=== PATIENT | female | born 1950 | race Caucasian/White ===

== ENCOUNTER 2016-11-27 19:42 | Inpatient (IN) | payer BC, OTHER ==
--- NOTE | 2016-11-27 20:08 | DR.GENAD ---
HPI - PCP Primary Care Physician: [email or web address] - Complaint/Symptoms Chief Complaint:: pt states" i feel so weak i can't hardly stand up" pt has a wound vac too sacrum area - Nurses notes reviewed Nurses Notes Review: Yes - Source History Provided: Patient - Mode of Arrival Mode of Arrival: EMS - Timing Onset of Chief Complaint: 11/26/16 Came on: Gradually - Duration Duration: Constant How lon Duration: Days - Location Location: generalized - Severity Severity: Moderate - Modifying Factors Worsens:: nothing - Associated Signs and Symptoms Associated Signs and Symptoms: wound vac PMH - PMH Past Medical History: Yes Past Medical History: Arthritis, Coronary Artery Disease, Dyslipidemia, Hypertension Past Surgical History: Yes Surgical History: Angioplasty/Stents, Appendectomy, , Hysterectomy, Other - Family History History of Family Medical Conditions: Yes Family Medical History: ID, Coronary Artery Disease, Hypertension - Social History Alcohol Use: None Do you use any recreational Drugs:: No Lives With: Family Lives Where: Home - infectious screening In the last 2 months have you had wt loss of >10#?: NO Have you had fever, night sweats or hemotysis?: No Have you traveled outside the country in the last 6 months?: No Isolation: Standard ROS - Review of Systems Constitutional: No Symptoms Reported Eyes: No Symptoms Reported ENTM: No Symptoms Reported Respiratoy: No Symptoms Reported Cardiovascular: No Symptoms Reported Gastrointestinal/Abdominal: No Symptoms Reported Genitourinary: No Symptoms Reported Neurological: No Symptoms Reported Musculoskeletal: Other (weakness) Integumentary: Other (sacral decubitius) Hematologic/Lymphatic: No Symptoms Reported Endocrine: No Symptoms Reported Psychiatric: Depression All Other Systems: Reviewed and Negative PE - Vital Signs Vitals: Temperature 99 F Pulse Rate 125 Respiratory Rate 20 Blood Pressure [Right Arm] 142/65 Blood Pressure [Left Arm] 135/75 Blood Pressure 116/71 O2 Sat by Pulse Oximetry 100 - General Limitations: No Limitations General Appearance: Alert, In No Apparent Distress - Head Head Exam: Normal Inspection - Eyes Eye exam: Normal Appearance, EOMI. negative: Scleral Icterus, Conjunctival Injection - ENT ENT Exam: Normal Exam External Ear Exam: Normal External Inspection - Neck Neck Exam: Normal Inspection, Full ROM, Trachea Midline - Chest Chest Inspection: Normal Inspection - Respiratory Respiratory Exam: Normal Lung Sounds Bilat. negative: Accessory Muscle Use, Respiratory Distress Respiratory Exam: Bilateral Clear to Auscultation - Cardiovascular Cardiovascular Exam: Tachycardia - Abdominal Exam Abdominal Exam: Normal Inspection, Normal Bowel Sounds, Soft. negative: Distention - Extremities Extremities Exam: Normal Inspection, Full ROM, Tenderness - Back Back Exam: Normal Inspection - Neurologic Neurological Exam: Alert, Oriented X3, CN II-XII Intact - Psychiatric Psychiatric Exam: Flat Affect - Skin Skin Exam: negative: Intact, Normal Color (sacral decubitus) Course - Consultation Called: 21:54 Call Returned: 21:54 Consultation Comments: case discussed with DR. Zaragoza admit for fluids and antibiotics ROR - Labs Reviewed Result Diagrams: 11/27/16 20:05 11/27/16 20:05 Laboratory: WBC 14.5 X10^3/uL (3.6-10.0) H 11/27/16 20:05 RBC 4.14 X10^6/uL (3.5-5.4) 11/27/16 20:05 Hgb 10.1 g/dL (12.0-16.0) L 11/27/16 20:05 Hct 32.1 % (36.0-47.0) L 11/27/16 20:05 MCV 77.5 fL (80.0-100.0) L 11/27/16 20:05 MCH 24.4 pg (27.0-34.0) L 11/27/16 20:05 MCHC 31.4 g/dL (33.0-35.0) L 11/27/16 20:05 RDW 17.6 % (11.6-16.5) H 11/27/16 20:05 Plt Count 414 X10^3/uL (150.0-450.0) 11/27/16 20:05 Plt Count Comment Adequate (ADEQUATE) 11/27/16 20:05 MPV 6.9 fL (7.4-11.0) L 11/27/16 20:05 Neut % 89.2 % (42.0-75.0) H 11/27/16 20:05 Lymph % 6.4 % (21.0-51.0) L 11/27/16 20:05 [place] % 3.7 % (0.0-13.0) 11/27/16 20:05 Eos % 0.2 % (0.9-2.9) L 11/27/16 20:05 Baso % 0.5 % (0.2-1.0) 11/27/16 20:05 Neut # 12.9 x10^3/uL (2.2-4.8) H 11/27/16 20:05 Lymph # 0.9 X10^3/uL (1.3-2.9) L 11/27/16 20:05 [place] # 0.5 x10^3/uL (0.3-0.8) 11/27/16 20:05 Eos # 0.0 x10^3/uL (0.0-0.2) 11/27/16 20:05 Baso # 0.1 X10^3/uL (0.0-0.1) 11/27/16 20:05 Absolute Nucleated RBC 0.0 /100WBC 11/27/16 20:05 Plt Morphology Comment Normal (NORMAL) 11/27/16 20:05 RBC Morphology Abnormal (NORMAL) A 11/27/16 20:05 Hypochromasia Slight A 11/27/16 20:05 Anisocytosis Slight A 11/27/16 20:05 Microcytosis Slight A 11/27/16 20:05 Sodium 134 mmol/L (136-145) L 11/27/16 20:05 Corrected Sodium TNP 11/27/16 20:05 Potassium 4.1 mmol/L (3.5-5.1) 11/27/16 20:05 Chloride 101 mmol/L (98-107) 11/27/16 20:05 Carbon Dioxide 26.7 mmol/L (21-32) 11/27/16 20:05 BUN 21 mg/dL (7-18) H 11/27/16 20:05 Creatinine 1.01 mg/dL (0.55-1.02) 11/27/16 20:05 Est GFR (MDRD) Af Amer > 60 (>60) 11/27/16 20:05 Est GFR (MDRD) Non-Af 58 (>60) L 11/27/16 20:05 Glucose 77 mg/dL (65-99) 11/27/16 20:05 Lactic Acid 2.5 mmol/L (0.4-2.0) H 11/27/16 20:47 Calcium 10.5 mg/dL (8.5-10.1) H 11/27/16 20:05 Corrected Calcium 12.6 mg/dL (8.5-10.1) H 11/27/16 20:05 Total Bilirubin 0.40 mg/dL (0.2-1.0) 11/27/16 20:05 AST 32 Units/L (15-37) 11/27/16 20:05 ALT 20 Units/L (12-78) 11/27/16 20:05 Alkaline Phosphatase 110 Units/L (46-116) 11/27/16 20:05 Lactate Dehydrogenase 184 Units/L (81-234) 11/27/16 20:05 Creatine Kinase 62 Units/L (26-192) 11/27/16 20:40 CK-MB (CK-2) 2.0 ng/mL (0-4.0) 11/27/16 20:40 CK/CKMB % Calc 3.2 % (<4) 11/27/16 20:40 Troponin I 0.07 ng/mL (0-1.5) 11/27/16 20:40 Total Protein 5.7 g/dL (6.4-8.2) L 11/27/16 20:05 Albumin 1.4 g/dL (3.4-5.0) L 11/27/16 20:05 Globulin 4.3 g/dL (2.5-4.5) 11/27/16 20:05 Albumin/Globulin Ratio 0.3 Ratio (1.1-2.1) L 11/27/16 20:05 Specimen Type Catherized urine 11/27/16 21:00 Urine Color Dark yellow (YELLOW) 11/27/16 21:00 Urine Appearance Cloudy (CLEAR) 11/27/16 21:00 Urine pH 6.0 (5.0 - 8.0) 11/27/16 21:00 Ur Specific [place] 1.025 (1.000-1.030) 11/27/16 21:00 Urine Protein 2+ (NEGATIVE) 11/27/16 21:00 Urine Glucose (UA) Negative (NEGATIVE) 11/27/16 21:00 Urine Ketones Negative (NEGATIVE) 11/27/16 21:00 Urine Occult Blood 4+ (NEGATIVE) 11/27/16 21:00 Urine Nitrite Negative (NEGATIVE) 11/27/16 21:00 Urine Bilirubin Negative (NEGATIVE) 11/27/16 21:00 Urine Urobilinogen Normal (NORMAL) 11/27/16 21:00 Ur Leukocyte Esterase 3+ (NEGATIVE) 11/27/16 21:00 Urine RBC 7-9 /HPF (NEGATIVE) 11/27/16 21:00 Urine WBC Tntc /HPF (NEGATIVE) 11/27/16 21:00 Ur Squamous Epith Cells Rare /HPF (NEGATIVE) 11/27/16 21:00 Amorphous Sediment Trace /HPF (NEGATIVE) 11/27/16 21:00 Urine Bacteria 2+ /HPF (NEGATIVE) 11/27/16 21:00 Ur Culture Indicated? Yes/culture set up 11/27/16 21:00 - XRAY XRAY Interpreted by: Radiologist XRAY Findings: chest: no acute findings, chronic bronchitis - Diagnosis Discharge Problem: UTI (urinary tract infection) Qualifiers: Urinary tract infection type: acute cystitis Hematuria presence: with hematuria Qualified Code(s): N30.01 - Acute cystitis with hematuria Sepsis Qualifiers: Sepsis type: sepsis due to unspecified organism Qualified Code(s): A41.9 - Sepsis, unspecified organism - Discharge Plan Condition: Stable - Follow ups/Referrals Follow ups/Referrals: Tae Zaragoza [Primary Care Provider] - 3 days - Instructions
--- NOTE | 2016-11-27 20:37 | RAD ---
AP Chest Indication: Weakness with sepsis Comparison: 11/02/2015 Findings: The trachea is midline. The cardiac silhouette is borderline enlarged. Moderate calcified atheroscl erotic disease aortic arch. Diffuse peribronchial thickening and interstitial coarsening appear michelle lar to prior examination suggesting sequela chronic bronchitis . Suture material is noted within the right midlung . No effusion or pneumothorax . Elevation left and right humeral heads consistent with chronic rotator cuff tear and insufficiency. There is osteolysis of the right distal clavicle along with diffuse joint space narrowing within bot h humeral heads, clinical correlation for history of systemic inflammatory arthropathy/rheumatoid ar thritis. IMPRESSION: 1. No acute cardiopulmonary abnormality or change from prior examination. 2. Radiographic findings suggests sequela of chronic bronchitis. 3. Borderline cardiomegaly with moderate calcified atherosclerotic disease of the aortic arch. Reported By:
[2016-11-27 20:50] LABS: ALANINE AMINOTRANSFERASE 20 Units/L (12-78); ALBUMIN 1.4 g/dL (3.4-5.0); ALKALINE PHOSPHATASE 110 Units/L (46-116); BLOOD UREA NITROGEN 21 mg/dL (7-18); CARBON DIOXIDE 26.7 mmol/L (21-32); TOTAL PROTEIN 5.7 g/dL (6.4-8.2); eGFR BLACK RACES > 60 (>60)
[2016-11-27 21:02] LABS: ASPARTATE AMINO TRANSFERASE 32 Units/L (15-37); CALCIUM 10.5 mg/dL (8.5-10.1); CHLORIDE 101 mmol/L (98-107); COR CA(FOR HYPOALB) 12.6 mg/dL (8.5-10.1); CREATININE 1.01 mg/dL (0.55-1.02); GLUCOSE 77 mg/dL (65-99); LACTATE DEHYDROGENASE 184 Units/L (81-234); SODIUM 134 mmol/L (136-145); eGFR NON BLACK RACES 58 (>60)
[2016-11-27 21:06] LABS: BASOPHILS # (AUTO) 0.1 X10^3/uL (0.0-0.1); BASOPHILS % (AUTO) 0.5 % (0.2-1.0); EOSINOPHILS % (AUTO) 0.2 % (0.9-2.9); HEMATOCRIT 32.1 % (36.0-47.0); HEMOGLOBIN 10.1 g/dL (12.0-16.0); LYMPHOCYTES # (AUTO) 0.9 X10^3/uL (1.3-2.9); LYMPHOCYTES % (AUTO) 6.4 % (21.0-51.0); MEAN CORPUSCULAR HEMOGLOBIN 24.4 pg (27.0-34.0); MEAN CORPUSCULAR HGB CONC 31.4 g/dL (33.0-35.0); MEAN CORPUSCULAR VOLUME 77.5 fL (80.0-100.0); MEAN PLATELET VOLUME 6.9 fL (7.4-11.0); MONOCYTES # (AUTO) 0.5 x10^3/uL (0.3-0.8); MONOCYTES % (AUTO) 3.7 % (0.0-13.0); NEUTROPHILS # (AUTO) 12.9 x10^3/uL (2.2-4.8); NEUTROPHILS % (AUTO) 89.2 % (42.0-75.0); PLATELET COUNT 414 X10^3/uL (150.0-450.0); RED BLOOD COUNT 4.14 X10^6/uL (3.5-5.4); RED CELL DISTRIBUTION WIDTH 17.6 % (11.6-16.5); WHITE BLOOD COUNT 14.5 X10^3/uL (3.6-10.0)
[2016-11-27 21:09] LABS: BILIRUBIN,URINE NEGATIVE (NEGATIVE); BLOOD/HEMOGLOBIN,URINE 4+ (NEGATIVE); GLUCOSE, URINE NEGATIVE (NEGATIVE); KETONES,URINE NEGATIVE (NEGATIVE); LEUKOCYTE ESTERASE ,URINE 3+ (NEGATIVE); NITRITES,URINE NEGATIVE (NEGATIVE); PROTEIN,URINE 2+ (NEGATIVE); UROBILINOGEN,URINE NORMAL (NORMAL)
[2016-11-27 21:17] LABS: ANISOCYTOSIS SLIGHT; HYPOCHROMASIA SLIGHT; MICROCYTOSIS SLIGHT; PLATELET MORPHOLOGY COMMENT NORMAL (NORMAL)
[2016-11-27 21:25] LABS: APPEARANCE,URINE CLOUDY (CLEAR); BACTERIA,URINE 2+ /HPF (NEGATIVE); COLOR,URINE DARK YELLOW (YELLOW); SQUAMOUS EPITHELIAL CELL,UR RARE /HPF (NEGATIVE)
[2016-11-27 21:26] LABS: AMORPHOUS SEDIMENT,UR TRACE /HPF (NEGATIVE)
[2016-11-27 21:36] LABS: CKMB % 3.2 % (<4); TROPONIN I 0.07 ng/mL (0-1.5)
[2016-11-27 22:42] LABS: MAGNESIUM 1.6 mg/dL (1.7-2.9); PHOSPHORUS 2.9 mg/dL (2.6-4.7)
[2016-11-27] MEDS: NS 1000 ML 1,000 ML IV SCH (22:48)
[2016-11-27] MEDS ORDERED: NS 100 ML IV + SPIKE MINIBAG* 100 ML IV ONE (23:18)
[2016-11-27] MEDS ORDERED: NORCO 5/325 MG TAB PO PRN (23:45)
[2016-11-27] MEDS: ZOSYN VIAL 3.375 GM IV SCH (23:45)
[2016-11-28] MEDS: DEMEROL INJ IVP PRN ×3 (00:04→20:29)
[2016-11-28 03:22] LABS: CKMB % 1.5 % (<4); CREATINE KINASE MB 1.1 ng/mL (0-4.0); TROPONIN I 0.12 ng/mL (0-1.5)
[2016-11-28 03:50] LABS: LACTIC ACID 1.4 mmol/L (0.4-2.0)
[2016-11-28] MEDS ORDERED: NS 100 ML IV + SPIKE MINIBAG* 100 ML IV ONE (05:45)
[2016-11-28] MEDS: ZOSYN VIAL 3.375 GM IV SCH (05:59)
[2016-11-28 06:15] LABS: BASOPHILS % (AUTO) 0.3 % (0.2-1.0); EOSINOPHILS % (AUTO) 0.6 % (0.9-2.9); HEMATOCRIT 27.8 % (36.0-47.0); LYMPHOCYTES # (AUTO) 1.3 X10^3/uL (1.3-2.9); LYMPHOCYTES % (AUTO) 17.6 % (21.0-51.0); MEAN CORPUSCULAR HEMOGLOBIN 25.3 pg (27.0-34.0); MEAN CORPUSCULAR HGB CONC 32.2 g/dL (33.0-35.0); MEAN CORPUSCULAR VOLUME 78.4 fL (80.0-100.0); MEAN PLATELET VOLUME 6.8 fL (7.4-11.0); MONOCYTES # (AUTO) 0.5 x10^3/uL (0.3-0.8); MONOCYTES % (AUTO) 6.4 % (0.0-13.0); NEUTROPHILS # (AUTO) 5.5 x10^3/uL (2.2-4.8); NEUTROPHILS % (AUTO) 75.1 % (42.0-75.0); PLATELET COUNT 369 X10^3/uL (150.0-450.0); RED BLOOD COUNT 3.55 X10^6/uL (3.5-5.4); RED CELL DISTRIBUTION WIDTH 17.9 % (11.6-16.5); WHITE BLOOD COUNT 7.3 X10^3/uL (3.6-10.0)
--- NOTE | 2016-11-28 06:28 | RAD ---
HISTORY: Sepsis Study: Chest one view Comparison: November 27, 2016 Findings: The patient is rotated markedly to the left. The heart appears within normal limits in size. No neelam estive heart failure is noted. The aorta is calcified. The lung schneider are free of acute infiltrates . No pleural effusions are identified. IMPRESSION: Lungs clear Reported By:
[2016-11-28 07:01] LABS: ALANINE AMINOTRANSFERASE 18 Units/L (12-78); ALBUMIN 1.4 g/dL (3.4-5.0); ALKALINE PHOSPHATASE 102 Units/L (46-116); AMYLASE 12 Units/L (25-115); ASPARTATE AMINO TRANSFERASE 32 Units/L (15-37); BLOOD UREA NITROGEN 20 mg/dL (7-18); CALCIUM 9.8 mg/dL (8.5-10.1); CARBON DIOXIDE 28.2 mmol/L (21-32); CHLORIDE 103 mmol/L (98-107); COR CA(FOR HYPOALB) 11.9 mg/dL (8.5-10.1); GLUCOSE 79 mg/dL (65-99); SODIUM 137 mmol/L (136-145); TOTAL PROTEIN 5.3 g/dL (6.4-8.2); eGFR BLACK RACES > 60 (>60); eGFR NON BLACK RACES 59 (>60)
[2016-11-28 07:26] LABS: PLATELET MORPHOLOGY COMMENT NORMAL (NORMAL)
[2016-11-28] MEDS ORDERED: PATIENT'S HOME MEDICATION (Tizanidine Hcl [Zanaflex 4 Mg] 1 TAB) PO PRN (07:36)
[2016-11-28] MEDS ORDERED: DULOXETINE HCL PO PRN (09:00)
[2016-11-28] MEDS: COLACE CAP 100 MG PO SCH ×2 (09:31→20:30)
[2016-11-28] MEDS: ZESTORETIC 10/ 12.5MG PO SCH (09:31)
[2016-11-28] MEDS: PROTONIX TAB 40 MG PO SCH (09:31)
[2016-11-28] MEDS: NEURONTIN CAP 300 MG PO SCH ×2 (09:31→20:30)
[2016-11-28] MEDS: ASPIRIN 81 MG CHEWTAB PO SCH (09:31)
[2016-11-28] MEDS: LOVENOX INJ 30 MG SYR SC SCH ×2 (09:33→20:29)
[2016-11-28] MEDS: PLAVIX PO SCH (09:33)
[2016-11-28] MEDS: ALBUMIN HUMAN 25%- 100ML 100 ML IV SCH (09:34)
[2016-11-28] MEDS ORDERED: PHARMACY CONSULT - TPN XX SCH (10:00)
[2016-11-28 10:02] LABS: LACTIC ACID 1.3 mmol/L (0.4-2.0)
[2016-11-28 10:15] LABS: CKMB % 1.9 % (<4); CREATINE KINASE MB 1.4 ng/mL (0-4.0); TROPONIN I 0.09 ng/mL (0-1.5)
[2016-11-28] MEDS: CLINIMIX 4.25 %/10 % 1,000 ML with MVI INJ (ADULT) 10 ML, TRACE ELEMENTS INJ 10 ML, TPN... IV SCH ×5 (11:53)
--- NOTE | 2016-11-28 12:21 | DR.H&P ---
H&P - History & Physical for Day of: H&P Date: 11/27/16 - Chief Complaint Chief Complaint: WEAKNESS, WOUND TO SACRUM, BURINING ON URINATION - Allergies Allergies/Adverse Reactions: Allergies Allergy/AdvReac Type Severity Reaction Status Date / Time Ciprofloxacin [From Cipro] Allergy Verified 11/27/16 20:03 Codeine Allergy Verified 11/27/16 20:03 Nitrofurantoin Allergy Verified 11/27/16 20:03 [From Macrobid] Sulfa Antibiotics Allergy Verified 11/27/16 20:03 Sulfamethoxazole Allergy Verified 11/27/16 20:03 w/Trimethoprim [From Septra] - History of Present Illness History of Present Illness: IS A 66 YEAR OLD PATIENT OF OURS. SHE PRESENTED TO THE ER WITH COMPLAINS OF WEAKNESS, BURNING ON URINATION, AND A SACRAL WOUND THAT IS DRAINING AND SHE THINKS IN INFECTED. ON ARRIVAL TO ER, PATIENT IS NOTED WITH HEART RATE OF 125 AND A TEMP OF 99. LABS AND XRAYS WERE OBTAINED IN THE ER AND REPORTED THE FOLLOWING: CBC WNL EXCEPT WBC 14.5, HGB/HCT 10.1/32.1. CMP WNL EXCEPT SODIUM 134, BUN 21, GFR 58, CALCIUM 10.5, TOTAL PROTEIN 5.7, ALBUMIN 1.4, LACTIC ACID 2.5, MAGNESIUM 1.6, LIPASE 69. CARDIAC ENZYMES WNL. URINALYSIS REPORTED WBC TNTC, RBC 7-9, LEUKOCYTES 3+, PROTEIN 2+, BACTERIA 2+, NITRATES NEGATIVE. BLOOD AND WOUND CULTURES ARE PENDING. CHEST XRAY REPORTED SEQUELA OF CHRONIC BRONCHITIS, BORDERLINE CARDIOMEGALY WITH MODERATE CALCIFIED ATHEROSCLEROTIC DISEASE OF THE ARORTIC ARCH. WE WILL ADMIT PATIENT TO MED/SURG FOR SUSPECTED SEPSIS FROM EITHER WOUND OR URINE AND WILL START ON ABX AND IVF. WE WILL ORDER A WOUND CONSULT AND WILL RECHECK LABS AND XRAY IN AM. - Past Medical History Past Medical History: Anemia, Anxiety, Arthritis, Coronary Artery Disease, Depression, Dyslipidemia, Hypertension Additional Medical History: tia,interstitial lung infection, pulmonary fibrosis , psoriasis, scoliosis, vision deficit with corrective lenses, constipation, UTI 's, muscle weakness, back pain, left knee pain, fibromyalgia, - Past Surgical History Surgical History: Angioplasty/Stents, Appendectomy, , Hysterectomy, Other Additional Surgical History: Cardiac stent x1, Lung Biopsy 10/20/15 - Family History Family Medical History: Cancer, [place], Coronary Artery Disease, Heart Failure, Hypertension - Social History Does patient currently use any type of tobacco product: No Have you used tobacco products in the last 12 months: No Type of Tobacco Use: None Does any household member use tobacco: No Alcohol Use: None Drug Use: None - Medications Home Medications: Aspirin [ASPIRIN 81 MG CHEWTAB *] 1 tab PO DAILY 11/27/16 [History Confirmed ] Naproxen [Naproxen] 1 tab PO BID PRN 11/27/16 [History Confirmed 11/27/16] Secukinumab [Cosentyx Sensoready Pen] 150 mg INJ MONTHLY 11/27/16 [History Confirmed 11/27/16] Tizanidine HCl [Zanaflex 4 mg] 1 tab PO HS PRN 11/27/16 [History Confirmed 11/27] - Review of Systems Constitutional: Weakness. denies: Fever, Chills, Sweats, Malaise, Other Eyes: No Symptoms Reported. denies: Pain, Vision Change, Conjunctivae Inflammation, Eyelid Inflammation, Redness, Other ENT: No Symptoms Reported. denies: Ear Pain, Ear Discharge, Nose Pain, Nose Discharge, Nose Congestion, Mouth Pain, Mouth Swelling, Throat Pain, Throat Swelling, Other Respiratory: No Symptoms Reported. denies: Cough, Dry, Shortness of Breath, Hemoptysis, SOB with Excertion, Pleuritic Pain, Sputum, Wheezing, Other Cardiovascular: No Symptoms Reported. denies: Chest Pain, Palpitations, Orthopnea, Paroxysmal Noc. Dyspnea, Edema, Light Headedness, Other Gastrointestinal: No Symptoms Reported. denies: Nausea, Vomiting, Abdominal Pain, Diarrhea, Constipation, Melena, Hematochezia, Other Genitourinary: Dysuria Musculoskeletal: No Symptoms Reported. denies: Shoulder Pain, Arm Pain, Back Pain, Hand Pain, Leg Pain, Foot Pain, Neck Pain, Other Skin: Wound Neurological: No Symptoms Reported. denies: Weakness, Numbness, Incoordination , Change in Speech, Confusion, Seizures, Other - Physical Exam Vital Signs: Temperature 98.5 F Pulse Rate [Apical] 99 Respiratory Rate 23 Blood Pressure [Right Arm] 116/53 O2 Sat by Pulse Oximetry 100 Oriented: Normal Eyes: Normal. negative: Blurred Vision, Diplopia, Discharge, Pain, Redness, Photophobia, Other Ear: Normal. negative: Right, Left, Swelling, Ecchymosis, Hemotypanum, Abrasion , Laceration Nose: Normal. negative: Injected, Discharge, Blood, Other Throat: Normal. negative: Tonsillar Hypertrophy, Red, Exudate, Dry, Other Respiratory: Clear Throughout Cardiovascular: Tachycardia : Dysuria, Hematuria, Frequency, Discharge Auscultation: Bowel Sounds: Normal. negative: Bruit, Absent, Increased, Decreased, High Pitched, Other Palpation: Normal. negative: Spleen Enlarged, Liver Enlarged, Mass Pulsatile, Other Tenderness: Normal. negative: Diffuse, RUQ, RLQ, LUQ, LLQ, Epigastric, Periumbilical, Suprapubic, Mild, Moderate, Severe, Rebound, Guarding, Rigidity, Other Skin: Wound Musculoskeletal: Instability Psychiatric: Normal. negative: Anxiety, Depression, Agitation, Other Mood Description: Calm. negative: Angry, Apathetic, Depressed, Fearful, Flat, Happy, Hostile, Sad, Suspicious, Withdrawn, Anxious, Appropriate, Labile Affect: Normal. negative: Angry, Anxious, Depressed, Flat, Hysterical, Quiet, Violent Speech Pattern: Clear. negative: Appropriate, Unclear, Inappropriate, Delayed, Slurred, Excessive, Aphasic, Artificially Ventilated - Assessment/Plan (1) Sepsis Qualifiers: Sepsis type: sepsis due to unspecified organism Qualified Code(s): A41.9 - Sepsis, unspecified organism Status: Suspected Plan: START ON ABX AND IVF, BLOOD AND WOUND CULTURES PENDING, MONITOR LABS (2) UTI (urinary tract infection) Qualifiers: Urinary tract infection type: acute cystitis Hematuria presence: with hematuria Indwelling urinary catheter type: I Encounter type: E Qualified Code(s): N30.01 - Acute cystitis with hematuria Status: Acute Plan: START ON ABX, IVF, MONITOR LABS (3) Decubital ulcer Qualifiers: Pressure ulcer location: sacral region Pressure ulcer stage: stage 4 Laterality: L Qualified Code(s): L89.154 - Pressure ulcer of sacral region, stage 4 Status: Chronic Plan: WOUND CONSULT, WOUND DRESSINGS, CONTINUE TO MONITOR (4) Arthritis Status: Chronic Plan: CONTINUE TO MONITOR (5) CAD (coronary artery disease) Qualifiers: Coronary Disease-Associated Artery/Lesion type: [place] artery [place] vs. transplanted heart: [place] heart Associated angina: without angina Qualified Code(s): I25.10 - Atherosclerotic heart disease of [place] coronary artery without angina pectoris Status: Chronic Plan: CONTINUE TO MONITOR (6) Constipation Qualifiers: Constipation type: chronic idiopathic constipation Qualified Code(s): K59.04 - Chronic idiopathic constipation Status: Chronic Plan: CONTINUE TO MONITOR (7) GERD (gastroesophageal reflux disease) Qualifiers: Esophagitis presence: esophagitis presence not specified Qualified Code(s) : K21.9 - Gastro-esophageal reflux disease without esophagitis Status: Chronic Plan: CONTINUE TO MONITOR (8) Hyperlipidemia Qualifiers: Hyperlipidemia type: mixed hyperlipidemia Qualified Code(s): E78.2 - Mixed hyperlipidemia Status: Chronic Plan: CONTINUE TO MONITOR (9) Hypertension Qualifiers: Hypertension type: essential hypertension Status: Chronic (10) Pulmonary fibrosis Status: Chronic Plan: CONTINUE TO MONITOR (11) Scoliosis Qualifiers: Scoliosis type: S Idiopathic scoliosis type: I Spinal region: S Status: Chronic Plan: CONTINUE TO MONITOR
--- NOTE | 2016-11-28 12:53 | PCM.PROG ---
Progress Note - Progress Note for Day of Date: 11/28/16 - Subjective Subjective: PATIENT IS LYING IN BED AWAKE ON MORNING ROUNDS. PATIENT VERBALIZES WEAKNESS AND JUST NOT FEELING WELL THIS MORNING. FAMILY AT BEDSIDE. PATIENT IS NOTED WITH SACRAL WOUND WITH WOUND VAC ATTACHED. FAMILY STATED THAT [facility] WOUND AND WOUND VAC AT HOME. PATIENT ALSO VERBALIZES NOT HAVING AN APPETITE LATELY. PATIENT WAS AFEBRILE THROUGHOUT THE NIGHT, BUT REMAINED TACHYCARDIC WITH HR 110-120. LABS AND XRAYS WERE OBTAINED THIS MORNING AND REPORT THE FOLLOWING: CBC WNL EXCEPT HGB/HCT 9.0/27.8. CMP WNL EXCEPT BUN 20, TOTAL PROTEIN 5.3, ALBUMIN 1.4, AMYLASE 12, MAGNESIUM 1.6. CHEST XRAY WNL. WE WILL START ALBUMIN AND TPN THIS MORNING. WE WILL CONTINUE TO MONITOR LABS AND CHEST XRAY IN AM. - Past Medical Family Social History Past Med/Fam/Surg Hx: No changes since H&P Allergies: Allergies Ciprofloxacin [From Cipro] Allergy (Verified 11/27/16 20:03) Codeine Allergy (Verified 11/27/16 20:03) Nitrofurantoin [From Macrobid] Allergy (Verified 11/27/16 20:03) Sulfa Antibiotics Allergy (Verified 11/27/16 20:03) Sulfamethoxazole w/Trimethoprim [From Septra] Allergy (Verified 11/27/16 20:03) - Review of Systems ROS: No change since H&P - Vital Signs and I&O's Vital Signs: Temperature 98.5 F Pulse Rate [Apical] 99 Respiratory Rate 23 Blood Pressure [Right Arm] 116/53 O2 Sat by Pulse Oximetry 100 Intake and Output: Intake & Output 11/26/16 11/27/16 11/28/16 11/29/16 11:59 11:59 11:59 11:59 Intake Total 401 Output Total 350 Balance 51 - Physical Exam Oriented: Normal Eyes: Normal. negative: Blurred Vision, Diplopia, Discharge, Pain, Redness, Photophobia, Other Ear: Normal. negative: Right, Left, Swelling, Ecchymosis, Hemotypanum, Abrasion , Laceration Nose: Normal. negative: Injected, Discharge, Blood, Other Throat: Normal. negative: Tonsillar Hypertrophy, Red, Exudate, Dry, Other Respiratory: Normal Cardiovascular: Tachycardia : Dysuria, Hematuria, Frequency, Discharge Auscultation: Bowel Sounds: Normal. negative: Bruit, Absent, Increased, Decreased, High Pitched, Other Palpation: Normal Tenderness: Normal. negative: Diffuse, RUQ, RLQ, LUQ, LLQ, Epigastric, Periumbilical, Suprapubic, Mild, Moderate, Severe, Rebound, Guarding, Rigidity, Other Skin: Wound Musculoskeletal: Instability Psychiatric: Normal. negative: Anxiety, Depression, Agitation, Other Mood Description: Calm. negative: Angry, Apathetic, Depressed, Fearful, Flat, Happy, Hostile, Sad, Suspicious, Withdrawn, Anxious, Appropriate, Labile Affect: Normal. negative: Angry, Anxious, Depressed, Flat, Hysterical, Quiet, Violent Speech Pattern: Clear. negative: Appropriate, Unclear, Inappropriate, Delayed, Slurred, Excessive, Aphasic, Artificially Ventilated - Laboratory and Diagnostics Result Diagrams: 11/28/16 05:25 11/28/16 05:25 Labs: Laboratory WBC 7.3 X10^3/uL (3.6-10.0) 11/28/16 05:25 RBC 3.55 X10^6/uL (3.5-5.4) 11/28/16 05:25 Hgb 9.0 g/dL (12.0-16.0) L 11/28/16 05:25 Hct 27.8 % (36.0-47.0) L 11/28/16 05:25 MCV 78.4 fL (80.0-100.0) L 11/28/16 05:25 MCH 25.3 pg (27.0-34.0) L 11/28/16 05:25 MCHC 32.2 g/dL (33.0-35.0) L 11/28/16 05:25 RDW 17.9 % (11.6-16.5) H 11/28/16 05:25 Plt Count 369 X10^3/uL (150.0-450.0) 11/28/16 05:25 Plt Count Comment Adequate (ADEQUATE) 11/28/16 05:25 MPV 6.8 fL (7.4-11.0) L 11/28/16 05:25 Neut % 75.1 % (42.0-75.0) H 11/28/16 05:25 Lymph % 17.6 % (21.0-51.0) L 11/28/16 05:25 [place] % 6.4 % (0.0-13.0) 11/28/16 05:25 Eos % 0.6 % (0.9-2.9) L 11/28/16 05:25 Baso % 0.3 % (0.2-1.0) 11/28/16 05:25 Neut # 5.5 x10^3/uL (2.2-4.8) H 11/28/16 05:25 Lymph # 1.3 X10^3/uL (1.3-2.9) 11/28/16 05:25 [place] # 0.5 x10^3/uL (0.3-0.8) 11/28/16 05:25 Eos # 0.0 x10^3/uL (0.0-0.2) 11/28/16 05:25 Baso # 0.0 X10^3/uL (0.0-0.1) 11/28/16 05:25 Absolute Nucleated RBC 0.0 /100WBC 11/28/16 05:25 Plt Morphology Comment Normal (NORMAL) 11/28/16 05:25 RBC Morphology Normal (NORMAL) 11/28/16 05:25 Hypochromasia Slight A 11/27/16 20:05 Anisocytosis Slight A 11/27/16 20:05 Microcytosis Slight A 11/27/16 20:05 INR Target Range - 11/28/16 05:25 INR 1.29 (0.8-1.3) 11/28/16 05:25 PTT 27.0 SECONDS (22.9-36.5) 11/28/16 05:25 PTT Comment - 11/28/16 05:25 Sodium 137 mmol/L (136-145) 11/28/16 05:25 Corrected Sodium TNP 11/28/16 05:25 Potassium 3.7 mmol/L (3.5-5.1) 11/28/16 05:25 Chloride 103 mmol/L (98-107) 11/28/16 05:25 Carbon Dioxide 28.2 mmol/L (21-32) 11/28/16 05:25 BUN 20 mg/dL (7-18) H 11/28/16 05:25 Creatinine 1.00 mg/dL (0.55-1.02) 11/28/16 05:25 Est GFR (MDRD) Af Amer > 60 (>60) 11/28/16 05:25 Est GFR (MDRD) Non-Af 59 (>60) 11/28/16 05:25 Glucose 79 mg/dL (65-99) 11/28/16 05:25 Lactic Acid 1.3 mmol/L (0.4-2.0) 11/28/16 09:10 Calcium 9.8 mg/dL (8.5-10.1) 11/28/16 05:25 Corrected Calcium 11.9 mg/dL (8.5-10.1) H 11/28/16 05:25 Phosphorus 2.9 mg/dL (2.6-4.7) 11/27/16 20:40 Magnesium 1.6 mg/dL (1.7-2.9) L 11/28/16 08:10 Total Bilirubin 0.50 mg/dL (0.2-1.0) 11/28/16 05:25 AST 32 Units/L (15-37) 11/28/16 05:25 ALT 18 Units/L (12-78) 11/28/16 05:25 Alkaline Phosphatase 102 Units/L (46-116) 11/28/16 05:25 Lactate Dehydrogenase 184 Units/L (81-234) 11/27/16 20:05 Creatine Kinase 73 Units/L (26-192) 11/28/16 09:10 CK-MB (CK-2) 1.4 ng/mL (0-4.0) 11/28/16 09:10 CK/CKMB % Calc 1.9 % (<4) 11/28/16 09:10 Troponin I 0.09 ng/mL (0-1.5) 11/28/16 09:10 Total Protein 5.3 g/dL (6.4-8.2) L 11/28/16 05:25 Albumin 1.4 g/dL (3.4-5.0) L 11/28/16 05:25 Globulin 3.9 g/dL (2.5-4.5) 11/28/16 05:25 Albumin/Globulin Ratio 0.4 Ratio (1.1-2.1) L 11/28/16 05:25 Amylase 12 Units/L (25-115) L 11/28/16 05:25 Lipase 69 Units/L (73-393) L 11/27/16 20:40 Specimen Type Catherized urine 11/27/16 21:00 Urine Color Dark yellow (YELLOW) 11/27/16 21:00 Urine Appearance Cloudy (CLEAR) 11/27/16 21:00 Urine pH 6.0 (5.0 - 8.0) 11/27/16 21:00 Ur Specific [place] 1.025 (1.000-1.030) 11/27/16 21:00 Urine Protein 2+ (NEGATIVE) 11/27/16 21:00 Urine Glucose (UA) Negative (NEGATIVE) 11/27/16 21:00 Urine Ketones Negative (NEGATIVE) 11/27/16 21:00 Urine Occult Blood 4+ (NEGATIVE) 11/27/16 21:00 Urine Nitrite Negative (NEGATIVE) 11/27/16 21:00 Urine Bilirubin Negative (NEGATIVE) 11/27/16 21:00 Urine Urobilinogen Normal (NORMAL) 11/27/16 21:00 Ur Leukocyte Esterase 3+ (NEGATIVE) 11/27/16 21:00 Urine RBC 7-9 /HPF (NEGATIVE) 11/27/16 21:00 Urine WBC Tntc /HPF (NEGATIVE) 11/27/16 21:00 Ur Squamous Epith Cells Rare /HPF (NEGATIVE) 11/27/16 21:00 Amorphous Sediment Trace /HPF (NEGATIVE) 11/27/16 21:00 Urine Bacteria 2+ /HPF (NEGATIVE) 11/27/16 21:00 Ur Culture Indicated? Yes/culture set up 11/27/16 21:00 - Plan (1) Sepsis Status: Suspected Qualifiers: Sepsis type: sepsis due to unspecified organism Qualified Code(s): A41.9 - Sepsis, unspecified organism Plan: START ON ABX AND IVF, BLOOD AND WOUND CULTURES PENDING, MONITOR LABS (2) UTI (urinary tract infection) Status: Acute Qualifiers: Urinary tract infection type: acute cystitis Hematuria presence: with hematuria Indwelling urinary catheter type: I Encounter type: E Qualified Code(s): N30.01 - Acute cystitis with hematuria Plan: START ON ABX, IVF, MONITOR LABS (3) Decubital ulcer Status: Chronic Qualifiers: Pressure ulcer location: sacral region Pressure ulcer stage: stage 4 Laterality: L Qualified Code(s): L89.154 - Pressure ulcer of sacral region, stage 4 Plan: WOUND CONSULT, WOUND DRESSINGS, CONTINUE TO MONITOR (4) Hypoalbuminemia due to protein-calorie malnutrition Status: Acute Plan: START ALBUMIN, TPN, CONTINUE TO MONITOR LABS (5) Poor nutrition Status: Acute Plan: START TPN AND ALBUMIN (6) Arthritis Status: Chronic Plan: CONTINUE TO MONITOR (7) CAD (coronary artery disease) Status: Chronic Qualifiers: Coronary Disease-Associated Artery/Lesion type: [place] artery [place] vs. transplanted heart: [place] heart Associated angina: without angina Qualified Code(s): I25.10 - Atherosclerotic heart disease of [place] coronary artery without angina pectoris Plan: CONTINUE TO MONITOR (8) Constipation Status: Chronic Qualifiers: Constipation type: chronic idiopathic constipation Qualified Code(s): K59.04 - Chronic idiopathic constipation Plan: CONTINUE TO MONITOR (9) GERD (gastroesophageal reflux disease) Status: Chronic Qualifiers: Esophagitis presence: esophagitis presence not specified Qualified Code(s) : K21.9 - Gastro-esophageal reflux disease without esophagitis Plan: CONTINUE TO MONITOR (10) Hyperlipidemia Status: Chronic Qualifiers: Hyperlipidemia type: mixed hyperlipidemia Qualified Code(s): E78.2 - Mixed hyperlipidemia Plan: CONTINUE TO MONITOR (11) Hypertension Status: Chronic Qualifiers: Hypertension type: essential hypertension (12) Pulmonary fibrosis Status: Chronic Plan: CONTINUE TO MONITOR (13) Scoliosis Status: Chronic Qualifiers: Scoliosis type: S Idiopathic scoliosis type: I Spinal region: S Plan: CONTINUE TO MONITOR
[2016-11-28] MEDS: MAGNESIUM SULFATE 1 GM/100 mL PREMIX 1 GM/100 ML BAG IV SCH ×2 (12:57→14:10)
[2016-11-28] MEDS: NORCO 10/325 TAB PO PRN (14:11)
[2016-11-28] MEDS: ZOSYN VIAL 3.375 GM 3.375 GM in NS 100 ML IV + SPIKE MINIBAG* 100 ML IV SCH ×2 (14:11→21:00)
[2016-11-28] MEDS: NS 1000 ML 1,000 ML IV SCH (20:28)
[2016-11-28] MEDS: LIPOSYN III 20% 100ML 100 ML IV SCH (20:28)
[2016-11-28] MEDS: MILK OF MAGNESIA PO SCH (20:30)
[2016-11-28] MEDS: ZANAFLEX PO SCH ×2 (20:30→20:34)
[2016-11-28] MEDS: LIPITOR TAB 40 MG PO SCH (20:30)
[2016-11-28] MEDS ORDERED: COLACE CAP 100 MG PO SCH (21:00)
[2016-11-29] MEDS: CLINIMIX 4.25 %/10 % 1,000 ML with MVI INJ (ADULT) 10 ML, TRACE ELEMENTS INJ 10 ML, TPN... IV SCH ×10 (00:07→14:01)
[2016-11-29] MEDS: NORCO 10/325 TAB PO PRN ×2 (00:40→21:05)
[2016-11-29] MEDS: ZOSYN VIAL 3.375 GM 3.375 GM in NS 100 ML IV + SPIKE MINIBAG* 100 ML IV SCH ×3 (05:39→21:01)
[2016-11-29] MEDS: NS 1000 ML 1,000 ML IV SCH ×2 (06:02→09:57)
[2016-11-29 06:54] LABS: MAGNESIUM 2.1 mg/dL (1.7-2.9); PHOSPHORUS 1.6 mg/dL (2.6-4.7)
[2016-11-29 07:14] LABS: BASOPHILS % (AUTO) 0.4 % (0.2-1.0); EOSINOPHILS # (AUTO) 0.1 x10^3/uL (0.0-0.2); EOSINOPHILS % (AUTO) 0.9 % (0.9-2.9); HEMATOCRIT 26.7 % (36.0-47.0); HEMOGLOBIN 8.5 g/dL (12.0-16.0); LYMPHOCYTES % (AUTO) 16.2 % (21.0-51.0); MEAN CORPUSCULAR HEMOGLOBIN 25.1 pg (27.0-34.0); MEAN CORPUSCULAR HGB CONC 31.8 g/dL (33.0-35.0); MEAN CORPUSCULAR VOLUME 78.7 fL (80.0-100.0); MONOCYTES # (AUTO) 0.4 x10^3/uL (0.3-0.8); MONOCYTES % (AUTO) 5.9 % (0.0-13.0); NEUTROPHILS # (AUTO) 4.7 x10^3/uL (2.2-4.8); NEUTROPHILS % (AUTO) 76.6 % (42.0-75.0); PLATELET COUNT 352 X10^3/uL (150.0-450.0); RED BLOOD COUNT 3.39 X10^6/uL (3.5-5.4); RED CELL DISTRIBUTION WIDTH 17.8 % (11.6-16.5); WHITE BLOOD COUNT 6.1 X10^3/uL (3.6-10.0)
[2016-11-29 07:17] VITALS: BMI 20.9
[2016-11-29 07:31] LABS: ALANINE AMINOTRANSFERASE 18 Units/L (12-78); ALBUMIN 1.5 g/dL (3.4-5.0); BLOOD UREA NITROGEN 17 mg/dL (7-18); CALCIUM 9.3 mg/dL (8.5-10.1); CARBON DIOXIDE 29.8 mmol/L (21-32); CHLORIDE 102 mmol/L (98-107); COR CA(FOR HYPOALB) 11.3 mg/dL (8.5-10.1); CREATININE 0.85 mg/dL (0.55-1.02); eGFR BLACK RACES > 60 (>60); eGFR NON BLACK RACES > 60 (>60)
[2016-11-29 07:54] LABS: ALKALINE PHOSPHATASE 99 Units/L (46-116); ASPARTATE AMINO TRANSFERASE 27 Units/L (15-37); GLUCOSE 127 mg/dL (65-99); TOTAL PROTEIN 5.2 g/dL (6.4-8.2)
[2016-11-29 08:00] LABS: PLATELET MORPHOLOGY COMMENT NORMAL (NORMAL)
[2016-11-29 08:22] LABS: COR NA(FOR HYPERGLY) 137 mmol/L (136-145); SODIUM 136 mmol/L (136-145)
[2016-11-29] MEDS ORDERED: POTASSIUM CHLORIDE LIQ 20 MEQ UDC PO PRN (08:56)
[2016-11-29] MEDS ORDERED: K-RIDER 10 MEQ/NS 100 ML 10 MEQ/100 ML BAG IV PRN (08:56)
[2016-11-29] MEDS ORDERED: K-LYTE EFFERVESCENT PO PRN (08:56)
[2016-11-29] MEDS: LOVENOX INJ 30 MG SYR SC SCH ×2 (09:53→20:02)
[2016-11-29] MEDS: PLAVIX PO SCH (09:55)
[2016-11-29] MEDS: ZESTORETIC 10/ 12.5MG PO SCH (09:55)
[2016-11-29] MEDS: K-DUR TAB 20 MEQ PO PRN ×2 (09:55→14:45)
[2016-11-29] MEDS: COLACE CAP 100 MG PO SCH ×2 (09:55→20:02)
[2016-11-29] MEDS: PROTONIX TAB 40 MG PO SCH (09:55)
[2016-11-29] MEDS: ALBUMIN HUMAN 25%- 100ML 100 ML IV SCH ×2 (09:56→20:01)
[2016-11-29] MEDS: ASPIRIN 81 MG CHEWTAB PO SCH (09:56)
[2016-11-29] MEDS: DEMEROL INJ IVP PRN (14:45)
--- NOTE | 2016-11-29 14:50 | PCM.PROG ---
Progress Note - Progress Note for Day of Date: 11/29/16 - Subjective Subjective: PATIENT IS RESTING IN BED UPON ROUNDS AND IS MORE ALERT TODAY. AND DAUGHTER AT BEDSIDE. PATIENT CONTINUES WITH SACRAL WOUND AND WOUND VAC INTACT. DR. YAMINI BILL WAS CONTACTED ABOUT WOUND CARE AND HE RECOMMENDED A WET-TO-DRY DRESSING WITH 1/2 STRENGTH [place] SOLUTION. PATIENT CONTINUES WITH POOR APPETITE AND MALNUTRITION HAS BEEN GOING ON FOR SOME TIME. PATIENT WAS STARTED ON ALBUMIN AND TPN YESTERDAY FOR IV NUTRITION. PHYSICAL THERAPY CONTINUES AND PATIENT REPORTS THAT SHE WAS UNABLE TO AMBULATE YESTERDAY DUE TO SEVERE WEAKNESS; BUT, SAT ON THE SIDE OF THE BED FOR A FEW MINUTES. CBC WNL EXCEPT: H/H 8.5/26.7. CMP WNL EXCEPT: POTASSIUM 3.1, GLUCOSE 127, TOTAL PROTEIN 5.2, ALBUMIN 1.5. MAGNESIUM IMPROVED FROM 1.6 TO 2.1 WITH SUPPLEMENTATION. WE WILL PROCEED WITH DRESSING RECOMMENDATIONS FROM DR. BILL, INCREASE ALBUMIN TO BID, CONTINUE TPN, AND PHYSICAL THERAPY. WE WILL CONTINUE TO MONITOR LABS AND CHEST XRAY IN AM. - Past Medical Family Social History Past Med/Fam/Surg Hx: No changes since H&P Allergies: Allergies Ciprofloxacin [From Cipro] Allergy (Verified 11/27/16 20:03) Codeine Allergy (Verified 11/27/16 20:03) Nitrofurantoin [From Macrobid] Allergy (Verified 11/27/16 20:03) Sulfa Antibiotics Allergy (Verified 11/27/16 20:03) Sulfamethoxazole w/Trimethoprim [From Septra] Allergy (Verified 11/27/16 20:03) - Review of Systems ROS: No change since H&P - Vital Signs and I&O's Vital Signs: Temperature 97.9 F Pulse Rate [Apical] 106 Respiratory Rate 23 Blood Pressure [Right Arm] 159/77 O2 Sat by Pulse Oximetry 100 Intake and Output: Intake & Output 11/27/16 11/28/16 11/29/16 11/30/16 11:59 11:59 11:59 11:59 Intake Total 401 3468 Output Total 350 2000 Balance 51 8508 - Physical Exam Oriented: Normal, Time, Person, Place Eyes: Normal. negative: Blurred Vision, Diplopia, Discharge, Pain, Redness, Photophobia, Other Ear: Normal. negative: Right, Left, Swelling, Ecchymosis, Hemotypanum, Abrasion , Laceration Nose: Normal. negative: Injected, Discharge, Blood, Other Throat: Normal. negative: Tonsillar Hypertrophy, Red, Exudate, Dry, Other Respiratory: Normal Cardiovascular: Tachycardia : Dysuria, Hematuria, Frequency, Discharge Auscultation: Bowel Sounds: Normal. negative: Bruit, Absent, Increased, Decreased, High Pitched, Other Palpation: Normal Tenderness: Normal. negative: Diffuse, RUQ, RLQ, LUQ, LLQ, Epigastric, Periumbilical, Suprapubic, Mild, Moderate, Severe, Rebound, Guarding, Rigidity, Other Skin: Wound (Sacral wounds: Superior to sacral, Sacral area, and Inferior to sacral) Musculoskeletal: Instability Psychiatric: Normal. negative: Anxiety, Depression, Agitation, Other Mood Description: Calm. negative: Angry, Apathetic, Depressed, Fearful, Flat, Happy, Hostile, Sad, Suspicious, Withdrawn, Anxious, Appropriate, Labile Affect: Normal. negative: Angry, Anxious, Depressed, Flat, Hysterical, Quiet, Violent Speech Pattern: Clear, Appropriate - Laboratory and Diagnostics Result Diagrams: 11/29/16 05:20 11/29/16 13:40 Labs: Laboratory WBC 6.1 X10^3/uL (3.6-10.0) 11/29/16 05:20 RBC 3.39 X10^6/uL (3.5-5.4) L 11/29/16 05:20 Hgb 8.5 g/dL (12.0-16.0) L 11/29/16 05:20 Hct 26.7 % (36.0-47.0) L 11/29/16 05:20 MCV 78.7 fL (80.0-100.0) L 11/29/16 05:20 MCH 25.1 pg (27.0-34.0) L 11/29/16 05:20 MCHC 31.8 g/dL (33.0-35.0) L 11/29/16 05:20 RDW 17.8 % (11.6-16.5) H 11/29/16 05:20 Plt Count 352 X10^3/uL (150.0-450.0) 11/29/16 05:20 Plt Count Comment Adequate (ADEQUATE) 11/29/16 05:20 MPV 7.0 fL (7.4-11.0) L 11/29/16 05:20 Neut % 76.6 % (42.0-75.0) H 11/29/16 05:20 Lymph % 16.2 % (21.0-51.0) L 11/29/16 05:20 [place] % 5.9 % (0.0-13.0) 11/29/16 05:20 Eos % 0.9 % (0.9-2.9) 11/29/16 05:20 Baso % 0.4 % (0.2-1.0) 11/29/16 05:20 Neut # 4.7 x10^3/uL (2.2-4.8) 11/29/16 05:20 Lymph # 1.0 X10^3/uL (1.3-2.9) L 11/29/16 05:20 [place] # 0.4 x10^3/uL (0.3-0.8) 11/29/16 05:20 Eos # 0.1 x10^3/uL (0.0-0.2) 11/29/16 05:20 Baso # 0.0 X10^3/uL (0.0-0.1) 11/29/16 05:20 Absolute Nucleated RBC 0.1 /100WBC 11/29/16 05:20 Plt Morphology Comment Normal (NORMAL) 11/29/16 05:20 RBC Morphology Normal (NORMAL) 11/29/16 05:20 Hypochromasia Slight A 11/27/16 20:05 Anisocytosis Slight A 11/27/16 20:05 Microcytosis Slight A 11/27/16 20:05 INR Target Range - 11/28/16 05:25 INR 1.29 (0.8-1.3) 11/28/16 05:25 PTT 27.0 SECONDS (22.9-36.5) 11/28/16 05:25 PTT Comment - 11/28/16 05:25 Sodium 136 mmol/L (136-145) 11/29/16 05:20 Corrected Sodium 137 mmol/L (136-145) 11/29/16 05:20 Potassium 3.2 mmol/L (3.5-5.1) L 11/29/16 13:40 Chloride 102 mmol/L (98-107) 11/29/16 05:20 Carbon Dioxide 29.8 mmol/L (21-32) 11/29/16 05:20 BUN 17 mg/dL (7-18) 11/29/16 05:20 Creatinine 0.85 mg/dL (0.55-1.02) 11/29/16 05:20 Est GFR (MDRD) Af Amer > 60 (>60) 11/29/16 05:20 Est GFR (MDRD) Non-Af > 60 (>60) 11/29/16 05:20 Glucose 127 mg/dL (65-99) H 11/29/16 05:20 Lactic Acid 1.3 mmol/L (0.4-2.0) 11/28/16 09:10 Calcium 9.3 mg/dL (8.5-10.1) 11/29/16 05:20 Corrected Calcium 11.3 mg/dL (8.5-10.1) H 11/29/16 05:20 Phosphorus 1.6 mg/dL (2.6-4.7) L 11/29/16 05:20 Magnesium 2.1 mg/dL (1.7-2.9) 11/29/16 05:20 Total Bilirubin 0.20 mg/dL (0.2-1.0) 11/29/16 05:20 AST 27 Units/L (15-37) 11/29/16 05:20 ALT 18 Units/L (12-78) 11/29/16 05:20 Alkaline Phosphatase 99 Units/L (46-116) 11/29/16 05:20 Lactate Dehydrogenase 184 Units/L (81-234) 11/27/16 20:05 Creatine Kinase 73 Units/L (26-192) 11/28/16 09:10 CK-MB (CK-2) 1.4 ng/mL (0-4.0) 11/28/16 09:10 CK/CKMB % Calc 1.9 % (<4) 11/28/16 09:10 Troponin I 0.09 ng/mL (0-1.5) 11/28/16 09:10 Total Protein 5.2 g/dL (6.4-8.2) L 11/29/16 05:20 Albumin 1.5 g/dL (3.4-5.0) L 11/29/16 05:20 Globulin 3.7 g/dL (2.5-4.5) 11/29/16 05:20 Albumin/Globulin Ratio 0.4 Ratio (1.1-2.1) L 11/29/16 05:20 Triglycerides 102 mg/dL (0-150) 11/29/16 05:20 Amylase 12 Units/L (25-115) L 11/28/16 05:25 Lipase 69 Units/L (73-393) L 11/27/16 20:40 Specimen Type Catherized urine 11/27/16 21:00 Urine Color Dark yellow (YELLOW) 11/27/16 21:00 Urine Appearance Cloudy (CLEAR) 11/27/16 21:00 Urine pH 6.0 (5.0 - 8.0) 11/27/16 21:00 Ur Specific [place] 1.025 (1.000-1.030) 11/27/16 21:00 Urine Protein 2+ (NEGATIVE) 11/27/16 21:00 Urine Glucose (UA) Negative (NEGATIVE) 11/27/16 21:00 Urine Ketones Negative (NEGATIVE) 11/27/16 21:00 Urine Occult Blood 4+ (NEGATIVE) 11/27/16 21:00 Urine Nitrite Negative (NEGATIVE) 11/27/16 21:00 Urine Bilirubin Negative (NEGATIVE) 11/27/16 21:00 Urine Urobilinogen Normal (NORMAL) 11/27/16 21:00 Ur Leukocyte Esterase 3+ (NEGATIVE) 11/27/16 21:00 Urine RBC 7-9 /HPF (NEGATIVE) 11/27/16 21:00 Urine WBC Tntc /HPF (NEGATIVE) 11/27/16 21:00 Ur Squamous Epith Cells Rare /HPF (NEGATIVE) 11/27/16 21:00 Amorphous Sediment Trace /HPF (NEGATIVE) 11/27/16 21:00 Urine Bacteria 2+ /HPF (NEGATIVE) 11/27/16 21:00 Ur Culture Indicated? Yes/culture set up 11/27/16 21:00 - Plan (1) Sepsis Status: Suspected Qualifiers: Sepsis type: sepsis due to unspecified organism Qualified Code(s): A41.9 - Sepsis, unspecified organism Plan: CONTINUE ON ZOSYN AND IVF, BLOOD CULTURES PENDING, MONITOR LABS AND VITAL SIGNS (2) Generalized weakness Status: Acute Plan: CONTINUE TPN, ALBUMIN, IV FLUIDS, PHYSICAL THERAPY. (3) Hypoalbuminemia due to protein-calorie malnutrition Status: Acute Plan: CONTINUE ALBUMIN, TPN, CONTINUE TO MONITOR LABS (4) Poor nutrition Status: Acute Plan: CONTINUE TPN AND ALBUMIN (5) UTI (urinary tract infection) Status: Acute Qualifiers: Urinary tract infection type: acute cystitis Hematuria presence: with hematuria Indwelling urinary catheter type: I Encounter type: E Qualified Code(s): N30.01 - Acute cystitis with hematuria Plan: CONTINUE ON ZOSYN, IVF, MONITOR LABS (6) Decubital ulcer Status: Chronic Qualifiers: Pressure ulcer location: sacral region Pressure ulcer stage: stage 4 Laterality: L Qualified Code(s): L89.154 - Pressure ulcer of sacral region, stage 4 Plan: CONTINUE WOUND CARE AND DRESSING CHANGES DAILY, CONTINUE TO MONITOR (7) Arthritis Status: Chronic Plan: CONTINUE TO MONITOR (8) CAD (coronary artery disease) Status: Chronic Qualifiers: Coronary Disease-Associated Artery/Lesion type: [place] artery [place] vs. transplanted heart: [place] heart Associated angina: without angina Qualified Code(s): I25.10 - Atherosclerotic heart disease of [place] coronary artery without angina pectoris Plan: CONTINUE TO MONITOR (9) Constipation Status: Chronic Qualifiers: Constipation type: chronic idiopathic constipation Qualified Code(s): K59.04 - Chronic idiopathic constipation Plan: CONTINUE TO MONITOR (10) GERD (gastroesophageal reflux disease) Status: Chronic Qualifiers: Esophagitis presence: esophagitis presence not specified Qualified Code(s) : K21.9 - Gastro-esophageal reflux disease without esophagitis Plan: CONTINUE TO MONITOR (11) Hyperlipidemia Status: Chronic Qualifiers: Hyperlipidemia type: mixed hyperlipidemia Qualified Code(s): E78.2 - Mixed hyperlipidemia Plan: CONTINUE TO MONITOR (12) Hypertension Status: Chronic Qualifiers: Hypertension type: essential hypertension (13) Pulmonary fibrosis Status: Chronic Plan: CONTINUE TO MONITOR (14) Scoliosis Status: Chronic Qualifiers: Scoliosis type: S Idiopathic scoliosis type: I Spinal region: S Plan: CONTINUE TO MONITOR
[2016-11-29] MEDS ORDERED: STERILE WATER IRRIGATION IR ONE (15:48)
[2016-11-29] MEDS: ZANAFLEX PO SCH (20:02)
[2016-11-29] MEDS: MILK OF MAGNESIA PO SCH (20:02)
[2016-11-29] MEDS: NEURONTIN CAP 300 MG PO SCH (20:02)
[2016-11-29] MEDS: LIPOSYN III 20% 100ML 100 ML IV SCH (20:02)
[2016-11-29] MEDS: LIPITOR TAB 40 MG PO SCH (20:02)
[2016-11-29] MEDS: SNACK - Diabetic Appropriate PO SCH (20:03)
[2016-11-30] MEDS: CLINIMIX 4.25 %/10 % 1,000 ML with MVI INJ (ADULT) 10 ML, TRACE ELEMENTS INJ 10 ML, TPN... IV SCH ×15 (00:09→23:20)
[2016-11-30] MEDS: NS 1000 ML 1,000 ML IV SCH ×3 (00:09→23:16)
[2016-11-30] MEDS: ZOSYN VIAL 3.375 GM 3.375 GM in NS 100 ML IV + SPIKE MINIBAG* 100 ML IV SCH ×3 (05:36→21:15)
[2016-11-30 05:52] LABS: MAGNESIUM 1.9 mg/dL (1.7-2.9); PHOSPHORUS 0.8 mg/dL (2.6-4.7)
[2016-11-30] MEDS: DEMEROL INJ IVP PRN ×2 (05:53→21:15)
[2016-11-30 08:14] LABS: BASOPHILS % (AUTO) 0.2 % (0.2-1.0); EOSINOPHILS # (AUTO) 0.1 x10^3/uL (0.0-0.2); EOSINOPHILS % (AUTO) 1.4 % (0.9-2.9); HEMATOCRIT 22.8 % (36.0-47.0); HEMOGLOBIN 7.3 g/dL (12.0-16.0); LYMPHOCYTES # (AUTO) 1.2 X10^3/uL (1.3-2.9); LYMPHOCYTES % (AUTO) 15.9 % (21.0-51.0); MEAN CORPUSCULAR VOLUME 78.2 fL (80.0-100.0); MEAN PLATELET VOLUME 6.8 fL (7.4-11.0); MONOCYTES # (AUTO) 0.5 x10^3/uL (0.3-0.8); MONOCYTES % (AUTO) 6.4 % (0.0-13.0); NEUTROPHILS # (AUTO) 5.6 x10^3/uL (2.2-4.8); NEUTROPHILS % (AUTO) 76.1 % (42.0-75.0); PLATELET COUNT 260 X10^3/uL (150.0-450.0); RED BLOOD COUNT 2.92 X10^6/uL (3.5-5.4); RED CELL DISTRIBUTION WIDTH 16.9 % (11.6-16.5); WHITE BLOOD COUNT 7.4 X10^3/uL (3.6-10.0)
[2016-11-30 08:22] LABS: ALANINE AMINOTRANSFERASE 15 Units/L (12-78); ALKALINE PHOSPHATASE 107 Units/L (46-116); ASPARTATE AMINO TRANSFERASE 18 Units/L (15-37); BLOOD UREA NITROGEN 16 mg/dL (7-18); CALCIUM 9.6 mg/dL (8.5-10.1); CARBON DIOXIDE 30.4 mmol/L (21-32); CHLORIDE 104 mmol/L (98-107); COR CA(FOR HYPOALB) 11.2 mg/dL (8.5-10.1); CREATININE 0.65 mg/dL (0.55-1.02); GLUCOSE 110 mg/dL (65-99); SODIUM 136 mmol/L (136-145); TOTAL PROTEIN 5.4 g/dL (6.4-8.2); eGFR BLACK RACES > 60 (>60); eGFR NON BLACK RACES > 60 (>60)
[2016-11-30 08:28] LABS: HYPOCHROMASIA SLIGHT; MICROCYTOSIS SLIGHT; PLATELET MORPHOLOGY COMMENT NORMAL (NORMAL)
[2016-11-30] MEDS: LOVENOX INJ 30 MG SYR SC SCH ×2 (09:50→20:00)
[2016-11-30] MEDS: ALBUMIN HUMAN 25%- 100ML 100 ML IV SCH ×2 (09:51→20:00)
[2016-11-30] MEDS: COLACE CAP 100 MG PO SCH ×2 (09:52→20:01)
[2016-11-30] MEDS: PROTONIX TAB 40 MG PO SCH (09:52)
[2016-11-30] MEDS: ASPIRIN 81 MG CHEWTAB PO SCH (09:52)
[2016-11-30] MEDS: PLAVIX PO SCH (09:53)
[2016-11-30] MEDS ORDERED: MILK OF MAGNESIA PO PRN (11:05)
[2016-11-30] MEDS: ZESTORETIC 10/ 12.5MG PO SCH (13:27)
[2016-11-30] MEDS: NORCO 10/325 TAB PO PRN (13:46)
[2016-11-30] MEDS: MIRALAX POWDER (1 DOSE 17GM) PO SCH (15:21)
[2016-11-30] MEDS: LIPOSYN III 20% 100ML 100 ML IV SCH (20:00)
[2016-11-30] MEDS: ZANAFLEX PO SCH (20:01)
[2016-11-30] MEDS: NEURONTIN CAP 300 MG PO SCH (20:01)
[2016-11-30] MEDS: LIPITOR TAB 40 MG PO SCH (20:01)
[2016-11-30] MEDS: SNACK - Diabetic Appropriate PO SCH (20:01)
[2016-11-30] MEDS: TYLENOL 325 MG TAB PO PRN (20:20)
--- NOTE | 2016-11-30 21:39 | PCM.PROG ---
Progress Note - Progress Note for Day of Date: 11/30/16 - Subjective Subjective: PATIENT CONTINUES WITH SEVERE WEAKNESS. AND DAUGHTER AT BEDSIDE. WOUND CARE CONTINUES TO SACRAL WOUND. PATIENT CONTINUES ON IV TPN AND ALBUMIN FOR POOR APPETITE. HEMOGLOBIN IS 7.3 THIS MORNING AND WE DISCUSS ANEMIA OF CHRONIC DISEASE AND SHE VOICES UNDERSTANDING. CBC WNL EXCEPT: H/H 7.3 /22.8. CMP WNL EXCEPT: GLUCOSE 110, TOTAL PROTEIN 5.4, ALBUMIN 2.0. WE WILL CONTINUE WOUND CARE, ALBUMIN, CONTINUE TPN, AND PHYSICAL THERAPY. WE WILL CONTINUE TO MONITOR H/H AND TRANSFUSE NEEDED. WE WILL FOLLOW UP WITH LABS IN AM. - Past Medical Family Social History Past Med/Fam/Surg Hx: No changes since H&P Allergies: Allergies Ciprofloxacin [From Cipro] Allergy (Verified 11/27/16 20:03) Codeine Allergy (Verified 11/27/16 20:03) Nitrofurantoin [From Macrobid] Allergy (Verified 11/27/16 20:03) Sulfa Antibiotics Allergy (Verified 11/27/16 20:03) Sulfamethoxazole w/Trimethoprim [From Septra] Allergy (Verified 11/27/16 20:03) - Review of Systems ROS: No change since H&P - Vital Signs and I&O's Vital Signs: Temperature 100.4 F Pulse Rate [Apical] 91 Respiratory Rate 21 Blood Pressure [Right Calf] 121/43 Blood Pressure [Right Arm] 134/60 O2 Sat by Pulse Oximetry 100 Intake and Output: Intake & Output 11/28/16 11/29/16 11/30/16 12/01/16 11:59 11:59 11:59 11:59 Intake Total 401 3468 3794 1732 Output Total 350 2000 3100 1100 Balance 51 1468 344 632 - Physical Exam Oriented: Normal, Time, Person, Place Eyes: Normal. negative: Blurred Vision, Diplopia, Discharge, Pain, Redness, Photophobia, Other Ear: Normal. negative: Right, Left, Swelling, Ecchymosis, Hemotypanum, Abrasion , Laceration Nose: Normal. negative: Injected, Discharge, Blood, Other Throat: Normal. negative: Tonsillar Hypertrophy, Red, Exudate, Dry, Other Respiratory: Normal Cardiovascular: Tachycardia : Dysuria, Hematuria, Frequency, Discharge Auscultation: Bowel Sounds: Normal. negative: Bruit, Absent, Increased, Decreased, High Pitched, Other Palpation: Normal. negative: Spleen Enlarged, Liver Enlarged, Mass Pulsatile Tenderness: Normal. negative: Diffuse, RUQ, RLQ, LUQ, LLQ, Epigastric, Periumbilical, Suprapubic, Mild, Moderate, Severe, Rebound, Guarding, Rigidity, Other Skin: Wound (Sacral wounds: Superior to sacral, Sacral area, and Inferior to sacral) Musculoskeletal: Instability Psychiatric: Normal. negative: Anxiety, Depression, Agitation, Other Mood Description: Calm. negative: Angry, Apathetic, Depressed, Fearful, Flat, Happy, Hostile, Sad, Suspicious, Withdrawn, Anxious, Appropriate, Labile Affect: Normal. negative: Angry, Anxious, Depressed, Flat, Hysterical, Quiet, Violent Speech Pattern: Clear, Appropriate - Laboratory and Diagnostics Result Diagrams: 11/30/16 07:56 11/30/16 07:56 Labs: 11/29/16 14:52 Sacral Gram Stain - Final Laboratory WBC 7.4 X10^3/uL (3.6-10.0) 11/30/16 07:56 RBC 2.92 X10^6/uL (3.5-5.4) L 11/30/16 07:56 Hgb 7.3 g/dL (12.0-16.0) L 11/30/16 07:56 Hct 22.8 % (36.0-47.0) L 11/30/16 07:56 MCV 78.2 fL (80.0-100.0) L 11/30/16 07:56 MCH 25.0 pg (27.0-34.0) L 11/30/16 07:56 MCHC 32.0 g/dL (33.0-35.0) L 11/30/16 07:56 RDW 16.9 % (11.6-16.5) H 11/30/16 07:56 Plt Count 260 X10^3/uL (150.0-450.0) 11/30/16 07:56 Plt Count Comment Adequate (ADEQUATE) 11/30/16 07:56 MPV 6.8 fL (7.4-11.0) L 11/30/16 07:56 Neut % 76.1 % (42.0-75.0) H 11/30/16 07:56 Lymph % 15.9 % (21.0-51.0) L 11/30/16 07:56 [place] % 6.4 % (0.0-13.0) 11/30/16 07:56 Eos % 1.4 % (0.9-2.9) 11/30/16 07:56 Baso % 0.2 % (0.2-1.0) 11/30/16 07:56 Neut # 5.6 x10^3/uL (2.2-4.8) H 11/30/16 07:56 Lymph # 1.2 X10^3/uL (1.3-2.9) L 11/30/16 07:56 [place] # 0.5 x10^3/uL (0.3-0.8) 11/30/16 07:56 Eos # 0.1 x10^3/uL (0.0-0.2) 11/30/16 07:56 Baso # 0.0 X10^3/uL (0.0-0.1) 11/30/16 07:56 Absolute Nucleated RBC 0.0 /100WBC 11/30/16 07:56 Plt Morphology Comment Normal (NORMAL) 11/30/16 07:56 RBC Morphology Abnormal (NORMAL) A 11/30/16 07:56 Hypochromasia Slight A 11/30/16 07:56 Anisocytosis Slight A 11/27/16 20:05 Microcytosis Slight A 11/30/16 07:56 INR Target Range - 11/28/16 05:25 INR 1.29 (0.8-1.3) 11/28/16 05:25 PTT 27.0 SECONDS (22.9-36.5) 11/28/16 05:25 PTT Comment - 11/28/16 05:25 Sodium 136 mmol/L (136-145) 11/30/16 07:56 Corrected Sodium TNP 11/30/16 07:56 Potassium 3.8 mmol/L (3.5-5.1) 11/30/16 07:56 Chloride 104 mmol/L (98-107) 11/30/16 07:56 Carbon Dioxide 30.4 mmol/L (21-32) 11/30/16 07:56 BUN 16 mg/dL (7-18) 11/30/16 07:56 Creatinine 0.65 mg/dL (0.55-1.02) 11/30/16 07:56 Est GFR (MDRD) Af Amer > 60 (>60) 11/30/16 07:56 Est GFR (MDRD) Non-Af > 60 (>60) 11/30/16 07:56 Glucose 110 mg/dL (65-99) H 11/30/16 07:56 Lactic Acid 1.3 mmol/L (0.4-2.0) 11/28/16 09:10 Calcium 9.6 mg/dL (8.5-10.1) 11/30/16 07:56 Corrected Calcium 11.2 mg/dL (8.5-10.1) H 11/30/16 07:56 Phosphorus 0.8 mg/dL (2.6-4.7) L 11/30/16 04:25 Magnesium 1.9 mg/dL (1.7-2.9) 11/30/16 04:25 Total Bilirubin 0.40 mg/dL (0.2-1.0) 11/30/16 07:56 AST 18 Units/L (15-37) 11/30/16 07:56 ALT 15 Units/L (12-78) 11/30/16 07:56 Alkaline Phosphatase 107 Units/L (46-116) 11/30/16 07:56 Lactate Dehydrogenase 184 Units/L (81-234) 11/27/16 20:05 Creatine Kinase 73 Units/L (26-192) 11/28/16 09:10 CK-MB (CK-2) 1.4 ng/mL (0-4.0) 11/28/16 09:10 CK/CKMB % Calc 1.9 % (<4) 11/28/16 09:10 Troponin I 0.09 ng/mL (0-1.5) 11/28/16 09:10 Total Protein 5.4 g/dL (6.4-8.2) L 11/30/16 07:56 Albumin 2.0 g/dL (3.4-5.0) L 11/30/16 07:56 Globulin 3.4 g/dL (2.5-4.5) 11/30/16 07:56 Albumin/Globulin Ratio 0.6 Ratio (1.1-2.1) L 11/30/16 07:56 Triglycerides 89 mg/dL (0-150) 11/30/16 04:25 Amylase 12 Units/L (25-115) L 11/28/16 05:25 Lipase 69 Units/L (73-393) L 11/27/16 20:40 Cortisol 19.2 ug/dL 11/27/16 20:40 Specimen Type Catherized urine 11/27/16 21:00 Urine Color Dark yellow (YELLOW) 11/27/16 21:00 Urine Appearance Cloudy (CLEAR) 11/27/16 21:00 Urine pH 6.0 (5.0 - 8.0) 11/27/16 21:00 Ur Specific [place] 1.025 (1.000-1.030) 11/27/16 21:00 Urine Protein 2+ (NEGATIVE) 11/27/16 21:00 Urine Glucose (UA) Negative (NEGATIVE) 11/27/16 21:00 Urine Ketones Negative (NEGATIVE) 11/27/16 21:00 Urine Occult Blood 4+ (NEGATIVE) 11/27/16 21:00 Urine Nitrite Negative (NEGATIVE) 11/27/16 21:00 Urine Bilirubin Negative (NEGATIVE) 11/27/16 21:00 Urine Urobilinogen Normal (NORMAL) 11/27/16 21:00 Ur Leukocyte Esterase 3+ (NEGATIVE) 11/27/16 21:00 Urine RBC 7-9 /HPF (NEGATIVE) 11/27/16 21:00 Urine WBC Tntc /HPF (NEGATIVE) 11/27/16 21:00 Ur Squamous Epith Cells Rare /HPF (NEGATIVE) 11/27/16 21:00 Amorphous Sediment Trace /HPF (NEGATIVE) 11/27/16 21:00 Urine Bacteria 2+ /HPF (NEGATIVE) 11/27/16 21:00 Ur Culture Indicated? Yes/culture set up 11/27/16 21:00 - Plan (1) Sepsis Status: Suspected Qualifiers: Sepsis type: sepsis due to unspecified organism Qualified Code(s): A41.9 - Sepsis, unspecified organism Plan: CONTINUE ON ZOSYN AND IVF, BLOOD CULTURES PENDING, MONITOR LABS AND VITAL SIGNS (2) Generalized weakness Status: Acute Plan: CONTINUE TPN, ALBUMIN, IV FLUIDS, PHYSICAL THERAPY. (3) Hypoalbuminemia due to protein-calorie malnutrition Status: Acute Plan: CONTINUE ALBUMIN, TPN, CONTINUE TO MONITOR LABS (4) Poor nutrition Status: Acute Plan: CONTINUE TPN AND ALBUMIN (5) Anemia Status: Acute Qualifiers: Anemia type: iron deficiency Iron deficiency anemia type: inadequate dietary iron intake Folate deficiency anemia type: F Bone marrow failure anemia type: B Hemolytic anemia type: H Other causes of anemia: O Qualified Code(s): D50.8 - Other iron deficiency anemias Plan: CONTINUE TO MONITOR H/H, TRANSFUSE NEEDED. (6) UTI (urinary tract infection) Status: Acute Qualifiers: Urinary tract infection type: acute cystitis Hematuria presence: with hematuria Indwelling urinary catheter type: I Encounter type: E Qualified Code(s): N30.01 - Acute cystitis with hematuria Plan: CONTINUE ON ZOSYN, IVF, MONITOR LABS (7) Decubital ulcer Status: Chronic Qualifiers: Pressure ulcer location: sacral region Pressure ulcer stage: stage 4 Laterality: L Qualified Code(s): L89.154 - Pressure ulcer of sacral region, stage 4 Plan: CONTINUE WOUND CARE AND DRESSING CHANGES DAILY, CONTINUE TO MONITOR (8) Arthritis Status: Chronic Plan: CONTINUE TO MONITOR (9) CAD (coronary artery disease) Status: Chronic Qualifiers: Coronary Disease-Associated Artery/Lesion type: [place] artery [place] vs. transplanted heart: [place] heart Associated angina: without angina Qualified Code(s): I25.10 - Atherosclerotic heart disease of [place] coronary artery without angina pectoris Plan: CONTINUE TO MONITOR (10) Constipation Status: Chronic Qualifiers: Constipation type: chronic idiopathic constipation Qualified Code(s): K59.04 - Chronic idiopathic constipation Plan: CONTINUE TO MONITOR (11) GERD (gastroesophageal reflux disease) Status: Chronic Qualifiers: Esophagitis presence: esophagitis presence not specified Qualified Code(s) : K21.9 - Gastro-esophageal reflux disease without esophagitis Plan: CONTINUE TO MONITOR (12) Hyperlipidemia Status: Chronic Qualifiers: Hyperlipidemia type: mixed hyperlipidemia Qualified Code(s): E78.2 - Mixed hyperlipidemia Plan: CONTINUE TO MONITOR (13) Hypertension Status: Chronic Qualifiers: Hypertension type: essential hypertension (14) Pulmonary fibrosis Status: Chronic Plan: CONTINUE TO MONITOR (15) Scoliosis Status: Chronic Qualifiers: Scoliosis type: S Idiopathic scoliosis type: I Spinal region: S Plan: CONTINUE TO MONITOR
[2016-12-01] MEDS: NS 1000 ML 1,000 ML IV SCH ×4 (03:53→15:16)
[2016-12-01] MEDS: ZOSYN VIAL 3.375 GM 3.375 GM in NS 100 ML IV + SPIKE MINIBAG* 100 ML IV SCH ×3 (05:53→21:05)
[2016-12-01 07:49] LABS: ALANINE AMINOTRANSFERASE 24 Units/L (12-78); ALBUMIN 2.3 g/dL (3.4-5.0); ALKALINE PHOSPHATASE 154 Units/L (46-116); ASPARTATE AMINO TRANSFERASE 44 Units/L (15-37); BLOOD UREA NITROGEN 14 mg/dL (7-18); CALCIUM 9.4 mg/dL (8.5-10.1); CARBON DIOXIDE 30.7 mmol/L (21-32); CHLORIDE 103 mmol/L (98-107); COR CA(FOR HYPOALB) 10.8 mg/dL (8.5-10.1); CREATININE 0.61 mg/dL (0.55-1.02); GLUCOSE 110 mg/dL (65-99); MAGNESIUM 1.8 mg/dL (1.7-2.9); PHOSPHORUS 0.5 mg/dL (2.6-4.7); SODIUM 138 mmol/L (136-145); TOTAL PROTEIN 5.7 g/dL (6.4-8.2); TRIGLYCERIDES 81 mg/dL (0-150); eGFR BLACK RACES > 60 (>60); eGFR NON BLACK RACES > 60 (>60)
[2016-12-01 07:53] LABS: BASOPHILS % (AUTO) 0.4 % (0.2-1.0); EOSINOPHILS # (AUTO) 0.2 x10^3/uL (0.0-0.2); LYMPHOCYTES % (AUTO) 12.3 % (21.0-51.0); MEAN CORPUSCULAR HEMOGLOBIN 25.5 pg (27.0-34.0); MEAN CORPUSCULAR HGB CONC 32.4 g/dL (33.0-35.0); MEAN CORPUSCULAR VOLUME 78.6 fL (80.0-100.0); MEAN PLATELET VOLUME 7.2 fL (7.4-11.0); MONOCYTES # (AUTO) 0.4 x10^3/uL (0.3-0.8); MONOCYTES % (AUTO) 5.5 % (0.0-13.0); NEUTROPHILS # (AUTO) 6.4 x10^3/uL (2.2-4.8); NEUTROPHILS % (AUTO) 79.8 % (42.0-75.0); PLATELET COUNT 269 X10^3/uL (150.0-450.0); RED CELL DISTRIBUTION WIDTH 17.2 % (11.6-16.5)
[2016-12-01] MEDS: DEMEROL INJ IVP PRN ×2 (07:58→19:47)
[2016-12-01] MEDS: MIRALAX POWDER (1 DOSE 17GM) PO SCH (08:01)
[2016-12-01] MEDS: ALBUMIN HUMAN 25%- 100ML 100 ML IV SCH ×2 (08:02→20:01)
[2016-12-01] MEDS: LOVENOX INJ 30 MG SYR SC SCH ×2 (08:03→20:04)
[2016-12-01] MEDS: PLAVIX PO SCH (08:04)
[2016-12-01] MEDS: ASPIRIN 81 MG CHEWTAB PO SCH (08:04)
[2016-12-01] MEDS: COLACE CAP 100 MG PO SCH ×2 (08:05→20:04)
[2016-12-01] MEDS: PROTONIX TAB 40 MG PO SCH (08:05)
[2016-12-01] MEDS ORDERED: ZOFRAN INJ 4 MG VIAL ONE (08:10)
[2016-12-01 08:11] LABS: HEMOGLOBIN 7.1 g/dL (12.0-16.0)
[2016-12-01 08:14] LABS: HYPOCHROMASIA 1+; PLATELET MORPHOLOGY COMMENT NORMAL (NORMAL); POIKILOCYTOSIS SLIGHT
[2016-12-01] MEDS: ZESTORETIC 10/ 12.5MG PO SCH (08:15)
[2016-12-01] MEDS: ZOFRAN INJ 4 MG VIAL IVP PRN ×2 (08:15→19:47)
[2016-12-01] MEDS ORDERED: DULCOLAX SUPPOSITORY 10 MG ONE (11:21)
[2016-12-01] MEDS: CLINIMIX 4.25 %/10 % 1,000 ML with MVI INJ (ADULT) 10 ML, TRACE ELEMENTS INJ 10 ML, TPN... IV SCH ×10 (11:40→22:16)
[2016-12-01] MEDS ORDERED: DULCOLAX SUPPOSITORY 10 MG RECTAL ONE (12:10)
[2016-12-01] MEDS: NORCO 10/325 TAB PO PRN (14:03)
[2016-12-01] MEDS ORDERED: LANTISEPTIC ONE (16:04)
[2016-12-01] MEDS: LIPOSYN III 20% 100ML 100 ML IV SCH (20:01)
[2016-12-01] MEDS: NEURONTIN CAP 300 MG PO SCH (20:04)
[2016-12-01] MEDS: SNACK - Diabetic Appropriate PO SCH (20:04)
[2016-12-01] MEDS: ZANAFLEX PO SCH (20:04)
[2016-12-01] MEDS: LIPITOR TAB 40 MG PO SCH (20:04)
[2016-12-01] MEDS: MILK OF MAGNESIA PO SCH (20:04)
[2016-12-02] MEDS: NS 1000 ML 1,000 ML IV SCH ×3 (01:59→14:09)
[2016-12-02] MEDS: NORCO 10/325 TAB PO PRN ×2 (02:06→10:48)
[2016-12-02] MEDS: ZOSYN VIAL 3.375 GM 3.375 GM in NS 100 ML IV + SPIKE MINIBAG* 100 ML IV SCH ×3 (05:35→21:11)
[2016-12-02 07:05] LABS: BASOPHILS % (AUTO) 0.4 % (0.2-1.0); EOSINOPHILS # (AUTO) 0.2 x10^3/uL (0.0-0.2); LYMPHOCYTES # (AUTO) 1.2 X10^3/uL (1.3-2.9); LYMPHOCYTES % (AUTO) 15.2 % (21.0-51.0); MEAN CORPUSCULAR HEMOGLOBIN 25.4 pg (27.0-34.0); MEAN CORPUSCULAR HGB CONC 32.3 g/dL (33.0-35.0); MEAN CORPUSCULAR VOLUME 78.5 fL (80.0-100.0); MEAN PLATELET VOLUME 7.7 fL (7.4-11.0); MONOCYTES # (AUTO) 0.5 x10^3/uL (0.3-0.8); MONOCYTES % (AUTO) 7.1 % (0.0-13.0); NEUTROPHILS # (AUTO) 5.7 x10^3/uL (2.2-4.8); NEUTROPHILS % (AUTO) 75.3 % (42.0-75.0); PLATELET COUNT 267 X10^3/uL (150.0-450.0); RED BLOOD COUNT 2.41 X10^6/uL (3.5-5.4); RED CELL DISTRIBUTION WIDTH 16.8 % (11.6-16.5); WHITE BLOOD COUNT 7.6 X10^3/uL (3.6-10.0)
[2016-12-02 07:14] LABS: ALANINE AMINOTRANSFERASE 29 Units/L (12-78); ALBUMIN 2.6 g/dL (3.4-5.0); ALKALINE PHOSPHATASE 172 Units/L (46-116); ASPARTATE AMINO TRANSFERASE 47 Units/L (15-37); BLOOD UREA NITROGEN 15 mg/dL (7-18); CALCIUM 9.7 mg/dL (8.5-10.1); CARBON DIOXIDE 31.8 mmol/L (21-32); CHLORIDE 102 mmol/L (98-107); COR CA(FOR HYPOALB) 10.8 mg/dL (8.5-10.1); CREATININE 0.62 mg/dL (0.55-1.02); GLUCOSE 108 mg/dL (65-99); SODIUM 138 mmol/L (136-145); TOTAL PROTEIN 6.1 g/dL (6.4-8.2); eGFR BLACK RACES > 60 (>60); eGFR NON BLACK RACES > 60 (>60)
[2016-12-02 07:27] LABS: HEMOGLOBIN 6.1 g/dL (12.0-16.0)
[2016-12-02 07:28] LABS: HEMATOCRIT 18.9 % (36.0-47.0)
[2016-12-02 07:29] LABS: HYPOCHROMASIA 1+; MICROCYTOSIS SLIGHT; PLATELET MORPHOLOGY COMMENT NORMAL (NORMAL)
[2016-12-02] MEDS: MILK OF MAGNESIA PO SCH ×2 (08:28→20:23)
[2016-12-02] MEDS: LOVENOX INJ 30 MG SYR SC SCH ×2 (08:29→21:10)
[2016-12-02] MEDS: MIRALAX POWDER (1 DOSE 17GM) PO SCH (08:29)
[2016-12-02] MEDS: ZESTORETIC 10/ 12.5MG PO SCH (08:30)
[2016-12-02] MEDS: PLAVIX PO SCH (08:30)
[2016-12-02] MEDS: COLACE CAP 100 MG PO SCH ×2 (08:30→20:23)
[2016-12-02] MEDS: ASPIRIN 81 MG CHEWTAB PO SCH (08:30)
[2016-12-02] MEDS: PROTONIX TAB 40 MG PO SCH (08:30)
[2016-12-02] MEDS: ALBUMIN HUMAN 25%- 100ML 100 ML IV SCH ×2 (08:30→21:11)
[2016-12-02] MEDS: CLINIMIX 4.25 %/10 % 1,000 ML with MVI INJ (ADULT) 10 ML, TRACE ELEMENTS INJ 10 ML, TPN... IV SCH ×5 (10:10)
[2016-12-02] MEDS: K-DUR TAB 20 MEQ PO PRN (10:41)
[2016-12-02] MEDS ORDERED: LASIX IVP PRN (12:49)
[2016-12-02] MEDS ORDERED: BENADRYL CAP 50 MG PO PRN (12:50)
[2016-12-02] MEDS ORDERED: TYLENOL 325 MG TAB PO PRN (12:50)
[2016-12-02] MEDS ORDERED: NS 250 ML IV 250 ML IV ONE (13:40)
[2016-12-02] MEDS: TYLENOL 325 MG TAB PO PRN ×2 (18:10→22:46)
[2016-12-02] MEDS: DEMEROL INJ IVP PRN (20:19)
[2016-12-02] MEDS: LIPITOR TAB 40 MG PO SCH (20:22)
[2016-12-02] MEDS: ZANAFLEX PO SCH (20:23)
[2016-12-02] MEDS: NEURONTIN CAP 300 MG PO SCH (20:23)
[2016-12-02] MEDS: SNACK - Diabetic Appropriate PO SCH (21:12)
[2016-12-02] MEDS: LIPOSYN III 20% 100ML 100 ML IV SCH (21:17)
[2016-12-03 00:16] LABS: HEMATOCRIT 22.3 % (36.0-47.0); HEMOGLOBIN 7.2 g/dL (12.0-16.0)
[2016-12-03] MEDS: NS 1000 ML 1,000 ML IV SCH ×5 (00:20→22:10)
[2016-12-03] MEDS: CLINIMIX 4.25 %/10 % 1,000 ML with MVI INJ (ADULT) 10 ML, TRACE ELEMENTS INJ 10 ML, TPN... IV SCH ×15 (00:21→22:11)
[2016-12-03] MEDS: NORCO 10/325 TAB PO PRN ×2 (02:12→23:37)
[2016-12-03] MEDS: TYLENOL 325 MG TAB PO PRN ×3 (04:00→23:36)
[2016-12-03] MEDS ORDERED: NS 250 ML IV 250 ML IV ONE (04:00)
[2016-12-03 04:58] LABS: BASOPHILS % (AUTO) 0.4 % (0.2-1.0); EOSINOPHILS # (AUTO) 0.2 x10^3/uL (0.0-0.2); EOSINOPHILS % (AUTO) 1.5 % (0.9-2.9); HEMATOCRIT 23.9 % (36.0-47.0); HEMOGLOBIN 7.8 g/dL (12.0-16.0); LYMPHOCYTES # (AUTO) 1.4 X10^3/uL (1.3-2.9); LYMPHOCYTES % (AUTO) 13.3 % (21.0-51.0); MEAN CORPUSCULAR HGB CONC 32.6 g/dL (33.0-35.0); MEAN CORPUSCULAR VOLUME 79.7 fL (80.0-100.0); MEAN PLATELET VOLUME 7.8 fL (7.4-11.0); MONOCYTES # (AUTO) 0.6 x10^3/uL (0.3-0.8); MONOCYTES % (AUTO) 5.7 % (0.0-13.0); NEUTROPHILS # (AUTO) 8.4 x10^3/uL (2.2-4.8); NEUTROPHILS % (AUTO) 79.1 % (42.0-75.0); PLATELET COUNT 316 X10^3/uL (150.0-450.0); RED CELL DISTRIBUTION WIDTH 16.8 % (11.6-16.5); WHITE BLOOD COUNT 10.6 X10^3/uL (3.6-10.0)
[2016-12-03 05:11] LABS: ALANINE AMINOTRANSFERASE 42 Units/L (12-78); ALBUMIN 2.8 g/dL (3.4-5.0); ALKALINE PHOSPHATASE 198 Units/L (46-116); ASPARTATE AMINO TRANSFERASE 76 Units/L (15-37); BLOOD UREA NITROGEN 15 mg/dL (7-18); CALCIUM 9.7 mg/dL (8.5-10.1); CARBON DIOXIDE 32.2 mmol/L (21-32); CHLORIDE 103 mmol/L (98-107); COR CA(FOR HYPOALB) 10.7 mg/dL (8.5-10.1); COR NA(FOR HYPERGLY) 140 mmol/L (136-145); CREATININE 0.67 mg/dL (0.55-1.02); GLUCOSE 122 mg/dL (65-99); SODIUM 139 mmol/L (136-145); TOTAL PROTEIN 6.5 g/dL (6.4-8.2); eGFR BLACK RACES > 60 (>60); eGFR NON BLACK RACES > 60 (>60)
[2016-12-03 05:18] LABS: PLATELET MORPHOLOGY COMMENT NORMAL (NORMAL)
[2016-12-03 05:19] LABS: HYPOCHROMASIA SLIGHT
[2016-12-03] MEDS: ZOSYN VIAL 3.375 GM 3.375 GM in NS 100 ML IV + SPIKE MINIBAG* 100 ML IV SCH ×4 (05:51→21:06)
[2016-12-03] MEDS: ZESTORETIC 10/ 12.5MG PO SCH (09:24)
[2016-12-03] MEDS: LOVENOX INJ 30 MG SYR SC SCH ×2 (09:25→20:49)
[2016-12-03] MEDS: MILK OF MAGNESIA PO SCH ×2 (09:25→20:49)
[2016-12-03] MEDS: MIRALAX POWDER (1 DOSE 17GM) PO SCH (09:25)
[2016-12-03] MEDS: ASPIRIN 81 MG CHEWTAB PO SCH (09:25)
[2016-12-03] MEDS: PROTONIX TAB 40 MG PO SCH (09:25)
[2016-12-03] MEDS: COLACE CAP 100 MG PO SCH ×2 (09:25→20:48)
[2016-12-03] MEDS: PLAVIX PO SCH (09:25)
[2016-12-03 10:04] LABS: HEMATOCRIT 29.7 % (36.0-47.0); HEMOGLOBIN 9.6 g/dL (12.0-16.0)
[2016-12-03] MEDS: ALBUMIN HUMAN 25%- 100ML 100 ML IV SCH ×2 (10:16→20:47)
[2016-12-03] MEDS: ZOFRAN INJ 4 MG VIAL IVP PRN (12:37)
[2016-12-03] MEDS: DEMEROL INJ IVP PRN (12:37)
--- NOTE | 2016-12-03 16:06 | PCM.PROG ---
Progress Note - Progress Note for Day of Date: 12/03/16 - Subjective Subjective: PATIENT CONTINUES IV ZOSYN FOR CITROBACTER FREUNDII WOUND INFECTION. AND DAUGHTER AT BEDSIDE. WOUND CARE CONTINUES TO SACRAL WOUND. PATIENT RECEIVED TWO UNITS PRBC'S YESTERDAY AND HEMOGLOBIN HAS IMPROVED FROM 6.1 TO 9.6 TODAY. PATIENT CONTINUES ON IV TPN AND ALBUMIN FOR POOR APPETITE. PATIENT REPORTS SHE IS VERY WEAK. CBC WNL EXCEPT: H/H 7.3/22.8. CMP WNL EXCEPT: GLUCOSE 110, TOTAL PROTEIN 5.4, ALBUMIN 2.0. WE WILL CONTINUE WOUND CARE, ALBUMIN, TPN, ZOSYN, AND PHYSICAL THERAPY. WE WILL FOLLOW UP WITH LABS IN AM. - Past Medical Family Social History Past Med/Fam/Surg Hx: No changes since H&P Allergies: Allergies Ciprofloxacin [From Cipro] Allergy (Verified 11/27/16 20:03) Codeine Allergy (Verified 11/27/16 20:03) Nitrofurantoin [From Macrobid] Allergy (Verified 11/27/16 20:03) Sulfa Antibiotics Allergy (Verified 11/27/16 20:03) Sulfamethoxazole w/Trimethoprim [From Septra] Allergy (Verified 11/27/16 20:03) - Review of Systems ROS: No change since H&P - Vital Signs and I&O's Vital Signs: Temperature 100.6 F Pulse Rate [Left Brachial] 123 Pulse Rate [Right Brachial] 110 Pulse Rate [Apical] 118 Respiratory Rate 30 Blood Pressure [Right Calf] 95/56 Blood Pressure [Right Arm] 153/74 Blood Pressure [Left Arm] 151/70 O2 Sat by Pulse Oximetry 95 Intake and Output: Intake & Output 12/01/16 12/02/16 12/03/16 12/04/16 11:59 11:59 11:59 11:59 Intake Total 4681 3865 2580 480 Output Total 3500 1900 3000 500 Balance 1181 1965 420 -20 - Physical Exam Oriented: Normal, Time, Person, Place Eyes: Normal. negative: Blurred Vision, Diplopia, Discharge, Pain, Redness, Photophobia, Other Ear: Normal. negative: Right, Left, Swelling, Ecchymosis, Hemotypanum, Abrasion , Laceration Nose: Normal. negative: Injected, Discharge, Blood, Other Throat: Normal. negative: Tonsillar Hypertrophy, Red, Exudate, Dry, Other Respiratory: Normal Cardiovascular: Tachycardia : Normal Auscultation: Bowel Sounds: Normal. negative: Bruit, Absent, Increased, Decreased, High Pitched, Other Palpation: Normal. negative: Spleen Enlarged, Liver Enlarged, Mass Pulsatile Tenderness: Normal. negative: Diffuse, RUQ, RLQ, LUQ, LLQ, Epigastric, Periumbilical, Suprapubic, Mild, Moderate, Severe, Rebound, Guarding, Rigidity, Other Skin: Wound (Sacral wounds: Superior to sacral, Sacral area, and Inferior to sacral) Musculoskeletal: Instability Psychiatric: Normal Mood Description: Calm Affect: Normal Speech Pattern: Clear, Appropriate - Laboratory and Diagnostics Result Diagrams: 12/03/16 09:41 12/03/16 03:55 Labs: 11/29/16 14:52 Sacral Gram Stain - Final 11/29/16 14:52 Sacral Wound Culture - Final Citrobacter Freundii Laboratory WBC 10.6 X10^3/uL (3.6-10.0) H 12/03/16 03:55 RBC 3.00 X10^6/uL (3.5-5.4) L 12/03/16 03:55 Hgb 9.6 g/dL (12.0-16.0) L 12/03/16 09:41 Hct 29.7 % (36.0-47.0) L 12/03/16 09:41 MCV 79.7 fL (80.0-100.0) L 12/03/16 03:55 MCH 26.0 pg (27.0-34.0) L 12/03/16 03:55 MCHC 32.6 g/dL (33.0-35.0) L 12/03/16 03:55 RDW 16.8 % (11.6-16.5) H 12/03/16 03:55 Plt Count 316 X10^3/uL (150.0-450.0) 12/03/16 03:55 Plt Count Comment Adequate (ADEQUATE) 12/03/16 03:55 MPV 7.8 fL (7.4-11.0) 12/03/16 03:55 Neut % 79.1 % (42.0-75.0) H 12/03/16 03:55 Lymph % 13.3 % (21.0-51.0) L 12/03/16 03:55 [place] % 5.7 % (0.0-13.0) 12/03/16 03:55 Eos % 1.5 % (0.9-2.9) 12/03/16 03:55 Baso % 0.4 % (0.2-1.0) 12/03/16 03:55 Neut # 8.4 x10^3/uL (2.2-4.8) H 12/03/16 03:55 Lymph # 1.4 X10^3/uL (1.3-2.9) 12/03/16 03:55 [place] # 0.6 x10^3/uL (0.3-0.8) 12/03/16 03:55 Eos # 0.2 x10^3/uL (0.0-0.2) 12/03/16 03:55 Baso # 0.0 X10^3/uL (0.0-0.1) 12/03/16 03:55 Absolute Nucleated RBC 0.0 /100WBC 12/03/16 03:55 Plt Morphology Comment Normal (NORMAL) 12/03/16 03:55 RBC Morphology Abnormal (NORMAL) A 12/03/16 03:55 Hypochromasia Slight A 12/03/16 03:55 Poikilocytosis Slight A 12/01/16 07:00 Anisocytosis Slight A 11/27/16 20:05 Microcytosis Slight A 12/02/16 06:00 INR Target Range - 11/28/16 05:25 INR 1.29 (0.8-1.3) 11/28/16 05:25 PTT 27.0 SECONDS (22.9-36.5) 11/28/16 05:25 PTT Comment - 11/28/16 05:25 Sodium 139 mmol/L (136-145) 12/03/16 03:55 Corrected Sodium 140 mmol/L (136-145) 12/03/16 03:55 Potassium 3.7 mmol/L (3.5-5.1) 12/03/16 03:55 Chloride 103 mmol/L (98-107) 12/03/16 03:55 Carbon Dioxide 32.2 mmol/L (21-32) H 12/03/16 03:55 BUN 15 mg/dL (7-18) 12/03/16 03:55 Creatinine 0.67 mg/dL (0.55-1.02) 12/03/16 03:55 Est GFR (MDRD) Af Amer > 60 (>60) 12/03/16 03:55 Est GFR (MDRD) Non-Af > 60 (>60) 12/03/16 03:55 Glucose 122 mg/dL (65-99) H 12/03/16 03:55 Lactic Acid 1.3 mmol/L (0.4-2.0) 11/28/16 09:10 Calcium 9.7 mg/dL (8.5-10.1) 12/03/16 03:55 Corrected Calcium 10.7 mg/dL (8.5-10.1) H 12/03/16 03:55 Phosphorus 0.5 mg/dL (2.6-4.7) L 12/01/16 07:00 Magnesium 1.8 mg/dL (1.7-2.9) 12/01/16 07:00 Total Bilirubin 0.40 mg/dL (0.2-1.0) 12/03/16 03:55 AST 76 Units/L (15-37) H 12/03/16 03:55 ALT 42 Units/L (12-78) 12/03/16 03:55 Alkaline Phosphatase 198 Units/L (46-116) H 12/03/16 03:55 Lactate Dehydrogenase 184 Units/L (81-234) 11/27/16 20:05 Creatine Kinase 73 Units/L (26-192) 11/28/16 09:10 CK-MB (CK-2) 1.4 ng/mL (0-4.0) 11/28/16 09:10 CK/CKMB % Calc 1.9 % (<4) 11/28/16 09:10 Troponin I 0.09 ng/mL (0-1.5) 11/28/16 09:10 Total Protein 6.5 g/dL (6.4-8.2) 12/03/16 03:55 Albumin 2.8 g/dL (3.4-5.0) L 12/03/16 03:55 Globulin 3.7 g/dL (2.5-4.5) 12/03/16 03:55 Albumin/Globulin Ratio 0.8 Ratio (1.1-2.1) L 12/03/16 03:55 Triglycerides 81 mg/dL (0-150) 12/01/16 07:00 Amylase 12 Units/L (25-115) L 11/28/16 05:25 Lipase 69 Units/L (73-393) L 11/27/16 20:40 Cortisol 19.2 ug/dL 11/27/16 20:40 Specimen Type Catherized urine 11/27/16 21:00 Urine Color Dark yellow (YELLOW) 11/27/16 21:00 Urine Appearance Cloudy (CLEAR) 11/27/16 21:00 Urine pH 6.0 (5.0 - 8.0) 11/27/16 21:00 Ur Specific [place] 1.025 (1.000-1.030) 11/27/16 21:00 Urine Protein 2+ (NEGATIVE) 11/27/16 21:00 Urine Glucose (UA) Negative (NEGATIVE) 11/27/16 21:00 Urine Ketones Negative (NEGATIVE) 11/27/16 21:00 Urine Occult Blood 4+ (NEGATIVE) 11/27/16 21:00 Urine Nitrite Negative (NEGATIVE) 11/27/16 21:00 Urine Bilirubin Negative (NEGATIVE) 11/27/16 21:00 Urine Urobilinogen Normal (NORMAL) 11/27/16 21:00 Ur Leukocyte Esterase 3+ (NEGATIVE) 11/27/16 21:00 Urine RBC 7-9 /HPF (NEGATIVE) 11/27/16 21:00 Urine WBC Tntc /HPF (NEGATIVE) 11/27/16 21:00 Ur Squamous Epith Cells Rare /HPF (NEGATIVE) 11/27/16 21:00 Amorphous Sediment Trace /HPF (NEGATIVE) 11/27/16 21:00 Urine Bacteria 2+ /HPF (NEGATIVE) 11/27/16 21:00 Ur Culture Indicated? Yes/culture set up 11/27/16 21:00 Blood Type A NEGATIVE 12/02/16 10:46 Antibody Screen Negative 12/02/16 10:46 Crossmatch See Detail 12/02/16 10:46 - Plan (1) Citrobacter infection Status: Acute Plan: CONTINUE IV ZOSYN, WOUND CARE, MONITOR. (2) Hypoalbuminemia due to protein-calorie malnutrition Status: Acute Plan: CONTINUE ALBUMIN, TPN, CONTINUE TO MONITOR LABS (3) Anemia Status: Acute Qualifiers: Anemia type: iron deficiency Iron deficiency anemia type: inadequate dietary iron intake Vitamin B12 deficiency anemia type: V Folate deficiency anemia type: F Bone marrow failure anemia type: B Hemolytic anemia type: H Other causes of anemia: O Qualified Code(s): D50.8 - Other iron deficiency anemias Plan: CONTINUE TO MONITOR H/H, TRANSFUSE NEEDED. (4) Decubital ulcer Status: Chronic Qualifiers: Pressure ulcer location: sacral region Pressure ulcer stage: stage 4 Laterality: L Qualified Code(s): L89.154 - Pressure ulcer of sacral region, stage 4 Plan: CONTINUE WOUND CARE AND DRESSING CHANGES DAILY, CONTINUE TO MONITOR (5) Poor nutrition Status: Acute Plan: CONTINUE TPN AND ALBUMIN (6) Generalized weakness Status: Acute Plan: CONTINUE TPN, ALBUMIN, IV FLUIDS, PHYSICAL THERAPY. (7) UTI (urinary tract infection) Status: Acute Qualifiers: Urinary tract infection type: acute cystitis Hematuria presence: with hematuria Indwelling urinary catheter type: I Encounter type: E Qualified Code(s): N30.01 - Acute cystitis with hematuria Plan: CONTINUE ON ZOSYN, IVF, MONITOR LABS (8) Arthritis Status: Chronic Plan: CONTINUE TO MONITOR (9) CAD (coronary artery disease) Status: Chronic Qualifiers: Coronary Disease-Associated Artery/Lesion type: [place] artery [place] vs. transplanted heart: [place] heart Associated angina: without angina Qualified Code(s): I25.10 - Atherosclerotic heart disease of [place] coronary artery without angina pectoris Plan: CONTINUE TO MONITOR (10) Constipation Status: Chronic Qualifiers: Constipation type: chronic idiopathic constipation Qualified Code(s): K59.04 - Chronic idiopathic constipation Plan: CONTINUE TO MONITOR (11) GERD (gastroesophageal reflux disease) Status: Chronic Qualifiers: Esophagitis presence: esophagitis presence not specified Qualified Code(s) : K21.9 - Gastro-esophageal reflux disease without esophagitis Plan: CONTINUE TO MONITOR (12) Hyperlipidemia Status: Chronic Qualifiers: Hyperlipidemia type: mixed hyperlipidemia Qualified Code(s): E78.2 - Mixed hyperlipidemia Plan: CONTINUE TO MONITOR (13) Hypertension Status: Chronic Qualifiers: Hypertension type: essential hypertension (14) Pulmonary fibrosis Status: Chronic Plan: CONTINUE TO MONITOR (15) Scoliosis Status: Chronic Qualifiers: Scoliosis type: S Idiopathic scoliosis type: I Spinal region: S Plan: CONTINUE TO MONITOR (16) Sepsis Status: Ruled-out Qualifiers: Sepsis type: sepsis due to unspecified organism Qualified Code(s): A41.9 - Sepsis, unspecified organism
[2016-12-03] MEDS: LIPOSYN III 20% 100ML 100 ML IV SCH (20:47)
[2016-12-03] MEDS: NEURONTIN CAP 300 MG PO SCH (20:48)
[2016-12-03] MEDS: ZANAFLEX PO SCH (20:48)
[2016-12-03] MEDS: LIPITOR TAB 40 MG PO SCH (20:48)
[2016-12-03] MEDS: SNACK - Diabetic Appropriate PO SCH (20:49)
[2016-12-04] MEDS: DEMEROL INJ IVP PRN ×2 (00:57→21:47)
[2016-12-04] MEDS: ZOFRAN INJ 4 MG VIAL IVP PRN (01:00)
[2016-12-04] MEDS: CLINIMIX 4.25 %/10 % 1,000 ML with MVI INJ (ADULT) 10 ML, TRACE ELEMENTS INJ 10 ML, TPN... IV SCH ×15 (02:15→22:25)
[2016-12-04 05:24] LABS: ALANINE AMINOTRANSFERASE 40 Units/L (12-78); ALBUMIN 2.8 g/dL (3.4-5.0); ALKALINE PHOSPHATASE 178 Units/L (46-116); ASPARTATE AMINO TRANSFERASE 52 Units/L (15-37); BLOOD UREA NITROGEN 17 mg/dL (7-18); CALCIUM 9.5 mg/dL (8.5-10.1); CARBON DIOXIDE 32.5 mmol/L (21-32); CHLORIDE 103 mmol/L (98-107); COR CA(FOR HYPOALB) 10.5 mg/dL (8.5-10.1); COR NA(FOR HYPERGLY) 140 mmol/L (136-145); CREATININE 0.65 mg/dL (0.55-1.02); GLUCOSE 125 mg/dL (65-99); SODIUM 139 mmol/L (136-145); TOTAL PROTEIN 6.5 g/dL (6.4-8.2); eGFR BLACK RACES > 60 (>60); eGFR NON BLACK RACES > 60 (>60)
[2016-12-04] MEDS: ZOSYN VIAL 3.375 GM 3.375 GM in NS 100 ML IV + SPIKE MINIBAG* 100 ML IV SCH ×3 (05:44→21:25)
[2016-12-04 05:46] LABS: BASOPHILS % (AUTO) 0.3 % (0.2-1.0); EOSINOPHILS % (AUTO) 0.5 % (0.9-2.9); HEMATOCRIT 24.5 % (36.0-47.0); HEMOGLOBIN 8.2 g/dL (12.0-16.0); MEAN CORPUSCULAR HEMOGLOBIN 26.9 pg (27.0-34.0); MEAN CORPUSCULAR HGB CONC 33.6 g/dL (33.0-35.0); MEAN CORPUSCULAR VOLUME 80.1 fL (80.0-100.0); MONOCYTES # (AUTO) 0.7 x10^3/uL (0.3-0.8); MONOCYTES % (AUTO) 8.3 % (0.0-13.0); NEUTROPHILS # (AUTO) 6.8 x10^3/uL (2.2-4.8); NEUTROPHILS % (AUTO) 78.9 % (42.0-75.0); PLATELET COUNT 322 X10^3/uL (150.0-450.0); RED BLOOD COUNT 3.06 X10^6/uL (3.5-5.4); RED CELL DISTRIBUTION WIDTH 16.5 % (11.6-16.5); WHITE BLOOD COUNT 8.7 X10^3/uL (3.6-10.0)
[2016-12-04] MEDS: NS 1000 ML 1,000 ML IV SCH ×3 (06:07→22:26)
[2016-12-04] MEDS: ULTRAM PO PRN (06:17)
[2016-12-04] MEDS: ALBUMIN HUMAN 25%- 100ML 100 ML IV SCH ×2 (09:07→21:24)
[2016-12-04] MEDS: LOVENOX INJ 30 MG SYR SC SCH ×2 (09:11→21:25)
[2016-12-04] MEDS: MIRALAX POWDER (1 DOSE 17GM) PO SCH (09:12)
[2016-12-04] MEDS: MILK OF MAGNESIA PO SCH ×4 (09:12→21:27)
[2016-12-04] MEDS: ASPIRIN 81 MG CHEWTAB PO SCH (09:13)
[2016-12-04] MEDS: PROTONIX TAB 40 MG PO SCH (09:13)
[2016-12-04] MEDS: COLACE CAP 100 MG PO SCH ×3 (09:13→21:27)
[2016-12-04] MEDS: PLAVIX PO SCH (09:13)
[2016-12-04] MEDS: ZESTORETIC 10/ 12.5MG PO SCH (09:14)
--- NOTE | 2016-12-04 11:28 | PCM.PROG ---
Progress Note - Progress Note for Day of Date: 12/04/16 - Subjective Subjective: PATIENT CONTINUES IV ZOSYN FOR CITROBACTER FREUNDII WOUND INFECTION. AND DAUGHTER AT BEDSIDE. WOUND CARE CONTINUES TO SACRAL WOUND. PATIENT IS NOTED WITH SHORTNESS OF BREATH AND LABORED RESPIRATIONS THIS MORNING. PATIENT HAD A TEMPERATURE OF 103.3F THROUGH THE NIGHT. ON AUSCULTATION, LUNGS ARE NOTED WITH SCATTERED WHEEZING THROUGHOUT. PATIENT CONTINUES ON IV TPN AND ALBUMIN FOR POOR APPETITE. PATIENT CONTINUES WITH GENERALIZED WEAKNESS. CBC WNL EXCEPT: H/H 8.2/24.5. CMP WNL EXCEPT: POTASSIUM 3.2, GLUCOSE 125, ALBUMIN 2.8. WE WILL ADMINISTER LASIX IV BID FOR TWO DOSES. TYLENOL WILL BE GIVEN QID TODAY AND THEN NEEDED THROUGH THE NIGHT. WE WILL CONTINUE WOUND CARE, ALBUMIN, TPN, ZOSYN, AND PHYSICAL THERAPY. WE WILL FOLLOW UP WITH LABS IN AM. - Past Medical Family Social History Past Med/Fam/Surg Hx: No changes since H&P Allergies: Allergies Ciprofloxacin [From Cipro] Allergy (Verified 11/27/16 20:03) Codeine Allergy (Verified 11/27/16 20:03) Nitrofurantoin [From Macrobid] Allergy (Verified 11/27/16 20:03) Sulfa Antibiotics Allergy (Verified 11/27/16 20:03) Sulfamethoxazole w/Trimethoprim [From Septra] Allergy (Verified 11/27/16 20:03) - Review of Systems ROS: No change since H&P - Vital Signs and I&O's Vital Signs: Temperature 99.7 F Pulse Rate [Left Brachial] 99 Pulse Rate [Right Brachial] 110 Pulse Rate [Apical] 118 Respiratory Rate 18 Blood Pressure [Right Calf] 95/56 Blood Pressure [Right Arm] 89/53 Blood Pressure [Left Arm] 151/70 O2 Sat by Pulse Oximetry 96 Intake and Output: Intake & Output 12/01/16 12/02/16 12/03/16 12/04/16 11:59 11:59 11:59 11:59 Intake Total 4681 3865 2580 4467 Output Total 3500 1900 3000 1700 Balance 1181 1965 -[phone] - Physical Exam Oriented: Normal, Time, Person, Place Eyes: Normal. negative: Blurred Vision, Diplopia, Discharge, Pain, Redness, Photophobia, Other Ear: Normal. negative: Right, Left, Swelling, Ecchymosis, Hemotypanum, Abrasion , Laceration Nose: Normal. negative: Injected, Discharge, Blood, Other Throat: Normal. negative: Tonsillar Hypertrophy, Red, Exudate, Dry, Other Respiratory: Normal Cardiovascular: Tachycardia : Normal Auscultation: Bowel Sounds: Normal. negative: Bruit, Absent, Increased, Decreased, High Pitched, Other Tenderness: Normal. negative: Diffuse, RUQ, RLQ, LUQ, LLQ, Epigastric, Periumbilical, Suprapubic, Mild, Moderate, Severe, Rebound, Guarding, Rigidity, Other Skin: Wound (Sacral wounds: Superior to sacral, Sacral area, and Inferior to sacral) Musculoskeletal: Instability Psychiatric: Normal Mood Description: Calm Affect: Normal Speech Pattern: Clear, Appropriate - Laboratory and Diagnostics Result Diagrams: 12/04/16 03:55 12/04/16 08:20 Labs: 11/29/16 14:52 Sacral Gram Stain - Final 11/29/16 14:52 Sacral Wound Culture - Final Citrobacter [facility] WBC 8.7 X10^3/uL (3.6-10.0) 12/04/16 03:55 RBC 3.06 X10^6/uL (3.5-5.4) L 12/04/16 03:55 Hgb 8.2 g/dL (12.0-16.0) L 12/04/16 03:55 Hct 24.5 % (36.0-47.0) L 12/04/16 03:55 MCV 80.1 fL (80.0-100.0) 12/04/16 03:55 MCH 26.9 pg (27.0-34.0) L 12/04/16 03:55 MCHC 33.6 g/dL (33.0-35.0) 12/04/16 03:55 RDW 16.5 % (11.6-16.5) 12/04/16 03:55 Plt Count 322 X10^3/uL (150.0-450.0) 12/04/16 03:55 Plt Count Comment Adequate (ADEQUATE) 12/03/16 03:55 MPV 8.0 fL (7.4-11.0) 12/04/16 03:55 Neut % 78.9 % (42.0-75.0) H 12/04/16 03:55 Lymph % 12.0 % (21.0-51.0) L 12/04/16 03:55 [place] % 8.3 % (0.0-13.0) 12/04/16 03:55 Eos % 0.5 % (0.9-2.9) L 12/04/16 03:55 Baso % 0.3 % (0.2-1.0) 12/04/16 03:55 Neut # 6.8 x10^3/uL (2.2-4.8) H 12/04/16 03:55 Lymph # 1.0 X10^3/uL (1.3-2.9) L 12/04/16 03:55 [place] # 0.7 x10^3/uL (0.3-0.8) 12/04/16 03:55 Eos # 0.0 x10^3/uL (0.0-0.2) 12/04/16 03:55 Baso # 0.0 X10^3/uL (0.0-0.1) 12/04/16 03:55 Absolute Nucleated RBC 0.1 /100WBC 12/04/16 03:55 Plt Morphology Comment Normal (NORMAL) 12/03/16 03:55 RBC Morphology Abnormal (NORMAL) A 12/03/16 03:55 Hypochromasia Slight A 12/03/16 03:55 Poikilocytosis Slight A 12/01/16 07:00 Anisocytosis Slight A 11/27/16 20:05 Microcytosis Slight A 12/02/16 06:00 INR Target Range - 11/28/16 05:25 INR 1.29 (0.8-1.3) 11/28/16 05:25 PTT 27.0 SECONDS (22.9-36.5) 11/28/16 05:25 PTT Comment - 11/28/16 05:25 Sodium 139 mmol/L (136-145) 12/04/16 03:55 Corrected Sodium 140 mmol/L (136-145) 12/04/16 03:55 Potassium 3.9 mmol/L (3.5-5.1) 12/04/16 08:20 Chloride 103 mmol/L (98-107) 12/04/16 03:55 Carbon Dioxide 32.5 mmol/L (21-32) H 12/04/16 03:55 BUN 17 mg/dL (7-18) 12/04/16 03:55 Creatinine 0.65 mg/dL (0.55-1.02) 12/04/16 03:55 Est GFR (MDRD) Af Amer > 60 (>60) 12/04/16 03:55 Est GFR (MDRD) Non-Af > 60 (>60) 12/04/16 03:55 Glucose 125 mg/dL (65-99) H 12/04/16 03:55 Lactic Acid 1.3 mmol/L (0.4-2.0) 11/28/16 09:10 Calcium 9.5 mg/dL (8.5-10.1) 12/04/16 03:55 Corrected Calcium 10.5 mg/dL (8.5-10.1) H 12/04/16 03:55 Phosphorus 0.5 mg/dL (2.6-4.7) L 12/01/16 07:00 Magnesium 2.2 mg/dL (1.7-2.9) 12/04/16 03:55 Total Bilirubin 0.40 mg/dL (0.2-1.0) 12/04/16 03:55 AST 52 Units/L (15-37) H 12/04/16 03:55 ALT 40 Units/L (12-78) 12/04/16 03:55 Alkaline Phosphatase 178 Units/L (46-116) H 12/04/16 03:55 Lactate Dehydrogenase 184 Units/L (81-234) 11/27/16 20:05 Creatine Kinase 73 Units/L (26-192) 11/28/16 09:10 CK-MB (CK-2) 1.4 ng/mL (0-4.0) 11/28/16 09:10 CK/CKMB % Calc 1.9 % (<4) 11/28/16 09:10 Troponin I 0.09 ng/mL (0-1.5) 11/28/16 09:10 Total Protein 6.5 g/dL (6.4-8.2) 12/04/16 03:55 Albumin 2.8 g/dL (3.4-5.0) L 12/04/16 03:55 Globulin 3.7 g/dL (2.5-4.5) 12/04/16 03:55 Albumin/Globulin Ratio 0.8 Ratio (1.1-2.1) L 12/04/16 03:55 Triglycerides 81 mg/dL (0-150) 12/01/16 07:00 Amylase 12 Units/L (25-115) L 11/28/16 05:25 Lipase 69 Units/L (73-393) L 11/27/16 20:40 Cortisol 19.2 ug/dL 11/27/16 20:40 Specimen Type Catherized urine 11/27/16 21:00 Urine Color Dark yellow (YELLOW) 11/27/16 21:00 Urine Appearance Cloudy (CLEAR) 11/27/16 21:00 Urine pH 6.0 (5.0 - 8.0) 11/27/16 21:00 Ur Specific [place] 1.025 (1.000-1.030) 11/27/16 21:00 Urine Protein 2+ (NEGATIVE) 11/27/16 21:00 Urine Glucose (UA) Negative (NEGATIVE) 11/27/16 21:00 Urine Ketones Negative (NEGATIVE) 11/27/16 21:00 Urine Occult Blood 4+ (NEGATIVE) 11/27/16 21:00 Urine Nitrite Negative (NEGATIVE) 11/27/16 21:00 Urine Bilirubin Negative (NEGATIVE) 11/27/16 21:00 Urine Urobilinogen Normal (NORMAL) 11/27/16 21:00 Ur Leukocyte Esterase 3+ (NEGATIVE) 11/27/16 21:00 Urine RBC 7-9 /HPF (NEGATIVE) 11/27/16 21:00 Urine WBC Tntc /HPF (NEGATIVE) 11/27/16 21:00 Ur Squamous Epith Cells Rare /HPF (NEGATIVE) 11/27/16 21:00 Amorphous Sediment Trace /HPF (NEGATIVE) 11/27/16 21:00 Urine Bacteria 2+ /HPF (NEGATIVE) 11/27/16 21:00 Ur Culture Indicated? Yes/culture set up 11/27/16 21:00 Blood Type A NEGATIVE 12/02/16 10:46 Antibody Screen Negative 12/02/16 10:46 Crossmatch See Detail 12/02/16 10:46 - Plan (1) Citrobacter infection Status: Acute Plan: CONTINUE IV ZOSYN, WOUND CARE, MONITOR. (2) Fever Status: Acute Qualifiers: Fever type: due to other condition Encounter type: E Qualified Code(s): R50.81 - Fever presenting with conditions classified elsewhere Plan: TYLENOL QID TODAY THEN PRN, CONTINUE IV ZOSYN, MONITOR. (3) Hypoalbuminemia due to protein-calorie malnutrition Status: Acute Plan: CONTINUE ALBUMIN, TPN, CONTINUE TO MONITOR LABS (4) Anemia Status: Acute Qualifiers: Anemia type: iron deficiency Iron deficiency anemia type: inadequate dietary iron intake Vitamin B12 deficiency anemia type: V Folate deficiency anemia type: F Bone marrow failure anemia type: B Hemolytic anemia type: H Other causes of anemia: O Qualified Code(s): D50.8 - Other iron deficiency anemias Plan: CONTINUE TO MONITOR H/H, TRANSFUSE NEEDED. (5) Decubital ulcer Status: Chronic Qualifiers: Pressure ulcer location: sacral region Pressure ulcer stage: stage 4 Laterality: L Qualified Code(s): L89.154 - Pressure ulcer of sacral region, stage 4 Plan: CONTINUE WOUND CARE AND DRESSING CHANGES DAILY, CONTINUE TO MONITOR (6) Poor nutrition Status: Acute Plan: CONTINUE TPN AND ALBUMIN (7) Generalized weakness Status: Acute Plan: CONTINUE TPN, ALBUMIN, IV FLUIDS, PHYSICAL THERAPY. (8) UTI (urinary tract infection) Status: Acute Qualifiers: Urinary tract infection type: acute cystitis Hematuria presence: with hematuria Indwelling urinary catheter type: I Encounter type: E Qualified Code(s): N30.01 - Acute cystitis with hematuria Plan: CONTINUE ON ZOSYN, IVF, MONITOR LABS (9) Arthritis Status: Chronic Plan: CONTINUE TO MONITOR (10) CAD (coronary artery disease) Status: Chronic Qualifiers: Coronary Disease-Associated Artery/Lesion type: [place] artery [place] vs. transplanted heart: [place] heart Associated angina: without angina Qualified Code(s): I25.10 - Atherosclerotic heart disease of [place] coronary artery without angina pectoris Plan: CONTINUE TO MONITOR (11) Constipation Status: Chronic Qualifiers: Constipation type: chronic idiopathic constipation Qualified Code(s): K59.04 - Chronic idiopathic constipation Plan: CONTINUE TO MONITOR (12) GERD (gastroesophageal reflux disease) Status: Chronic Qualifiers: Esophagitis presence: esophagitis presence not specified Qualified Code(s) : K21.9 - Gastro-esophageal reflux disease without esophagitis Plan: CONTINUE TO MONITOR (13) Hyperlipidemia Status: Chronic Qualifiers: Hyperlipidemia type: mixed hyperlipidemia Qualified Code(s): E78.2 - Mixed hyperlipidemia Plan: CONTINUE TO MONITOR (14) Hypertension Status: Chronic Qualifiers: Hypertension type: essential hypertension (15) Pulmonary fibrosis Status: Chronic Plan: CONTINUE TO MONITOR (16) Scoliosis Status: Chronic Qualifiers: Scoliosis type: S Idiopathic scoliosis type: I Spinal region: S Plan: CONTINUE TO MONITOR
[2016-12-04] MEDS: TYLENOL 325 MG TAB PO SCH ×4 (11:36→21:26)
[2016-12-04] MEDS: LASIX IVP SCH ×2 (11:37→21:25)
[2016-12-04] MEDS: LIPOSYN III 20% 100ML 100 ML IV SCH (21:23)
[2016-12-04] MEDS: SNACK - Diabetic Appropriate PO SCH (21:24)
[2016-12-04] MEDS: NEURONTIN CAP 300 MG PO SCH (21:26)
[2016-12-04] MEDS: ZANAFLEX PO SCH (21:26)
[2016-12-04] MEDS: LIPITOR TAB 40 MG PO SCH (21:26)
[2016-12-05 04:58] LABS: BASOPHILS % (AUTO) 0.4 % (0.2-1.0); EOSINOPHILS # (AUTO) 0.1 x10^3/uL (0.0-0.2); EOSINOPHILS % (AUTO) 2.1 % (0.9-2.9); HEMATOCRIT 26.2 % (36.0-47.0); HEMOGLOBIN 8.5 g/dL (12.0-16.0); LYMPHOCYTES # (AUTO) 0.9 X10^3/uL (1.3-2.9); LYMPHOCYTES % (AUTO) 14.2 % (21.0-51.0); MEAN CORPUSCULAR HEMOGLOBIN 26.2 pg (27.0-34.0); MEAN CORPUSCULAR HGB CONC 32.4 g/dL (33.0-35.0); MEAN CORPUSCULAR VOLUME 80.7 fL (80.0-100.0); MEAN PLATELET VOLUME 8.1 fL (7.4-11.0); MONOCYTES # (AUTO) 0.6 x10^3/uL (0.3-0.8); MONOCYTES % (AUTO) 8.5 % (0.0-13.0); NEUTROPHILS % (AUTO) 74.8 % (42.0-75.0); PLATELET COUNT 379 X10^3/uL (150.0-450.0); RED BLOOD COUNT 3.24 X10^6/uL (3.5-5.4); RED CELL DISTRIBUTION WIDTH 16.6 % (11.6-16.5); WHITE BLOOD COUNT 6.7 X10^3/uL (3.6-10.0)
[2016-12-05 05:06] LABS: ALANINE AMINOTRANSFERASE 38 Units/L (12-78); ALBUMIN 2.8 g/dL (3.4-5.0); ALKALINE PHOSPHATASE 172 Units/L (46-116); ASPARTATE AMINO TRANSFERASE 49 Units/L (15-37); BLOOD UREA NITROGEN 18 mg/dL (7-18); CALCIUM 9.6 mg/dL (8.5-10.1); CARBON DIOXIDE 33.1 mmol/L (21-32); CHLORIDE 103 mmol/L (98-107); COR CA(FOR HYPOALB) 10.6 mg/dL (8.5-10.1); COR NA(FOR HYPERGLY) 140 mmol/L (136-145); GLUCOSE 115 mg/dL (65-99); SODIUM 140 mmol/L (136-145); TOTAL PROTEIN 6.6 g/dL (6.4-8.2); eGFR BLACK RACES > 60 (>60); eGFR NON BLACK RACES > 60 (>60)
[2016-12-05] MEDS: ZOSYN VIAL 3.375 GM 3.375 GM in NS 100 ML IV + SPIKE MINIBAG* 100 ML IV SCH (05:39)
[2016-12-05] MEDS: NS 1000 ML 1,000 ML IV SCH ×2 (05:59→16:02)
--- NOTE | 2016-12-05 06:11 | RAD ---
HISTORY: Sepsis Study: Chest one view Comparison: November 28, 2016 Findings: The patient is rotated to the left. The heart is within normal limits in size. The tim are prominen t and indistinct there is perihilar interstitial prominence and some patchy right upper lobe alveola r filling suggestive of interstitial and asymmetric pulmonary edema which has developed in the inter im since the prior examination. No pleural effusions are identified. The bony thorax is unremarkable . IMPRESSION: Interval development of congestive heart failure as described above since the prior examination Reported By:
[2016-12-05] MEDS: CLINIMIX 4.25 %/10 % 1,000 ML with MVI INJ (ADULT) 10 ML, TRACE ELEMENTS INJ 10 ML, TPN... IV SCH ×25 (06:47→23:09)
[2016-12-05] MEDS: TYLENOL 325 MG TAB PO PRN (07:03)
[2016-12-05] MEDS: NORCO 10/325 TAB PO PRN ×2 (08:34→21:29)
[2016-12-05] MEDS ORDERED: VALIUM PO PRN (09:10)
[2016-12-05] MEDS ORDERED: DUONEB 0.5 MG/3 MG ONE (09:54)
[2016-12-05] MEDS: COLACE CAP 100 MG PO SCH ×2 (10:00→21:27)
[2016-12-05] MEDS: PLAVIX PO SCH (10:03)
[2016-12-05] MEDS: LOVENOX INJ 30 MG SYR SC SCH ×2 (10:04→21:28)
[2016-12-05] MEDS: PROTONIX TAB 40 MG PO SCH (10:04)
[2016-12-05] MEDS: ASPIRIN 81 MG CHEWTAB PO SCH (10:04)
[2016-12-05] MEDS: ZESTORETIC 10/ 12.5MG PO SCH (10:04)
[2016-12-05] MEDS: ALBUMIN HUMAN 25%- 100ML 100 ML IV SCH ×2 (10:07→21:30)
[2016-12-05] MEDS: SOLU-Medrol 40 MG VIAL IVP SCH ×4 (10:08→21:30)
[2016-12-05] MEDS: LASIX IVP SCH ×2 (10:09→21:28)
[2016-12-05] MEDS: MIRALAX POWDER (1 DOSE 17GM) PO SCH (10:10)
[2016-12-05] MEDS: MILK OF MAGNESIA PO SCH ×2 (10:10→21:26)
[2016-12-05] MEDS: DUONEB 0.5 MG/3 MG NEB SCH ×4 (10:18→22:43)
[2016-12-05 11:20] LABS: BILIRUBIN,URINE NEGATIVE (NEGATIVE); BLOOD/HEMOGLOBIN,URINE 3+ (NEGATIVE); GLUCOSE, URINE NEGATIVE (NEGATIVE); KETONES,URINE NEGATIVE (NEGATIVE); LEUKOCYTE ESTERASE ,URINE NEGATIVE (NEGATIVE); NITRITES,URINE NEGATIVE (NEGATIVE); PH,URINE 6.5 (5.0 - 8.0); PROTEIN,URINE 2+ (NEGATIVE); UROBILINOGEN,URINE NORMAL (NORMAL)
[2016-12-05] MEDS: INVANZ INJ 1 GM VIAL 1 GM in NS 50 ML IV + SPIKE MINIBAG* 50 ML IV SCH (11:46)
[2016-12-05 12:04] LABS: APPEARANCE,URINE HAZY (CLEAR); BACTERIA,URINE TRACE /HPF (NEGATIVE); COLOR,URINE YELLOW (YELLOW); RBC,URINE 0-3 /HPF (NEGATIVE); SQUAMOUS EPITHELIAL CELL,UR RARE /HPF (NEGATIVE)
[2016-12-05 12:05] LABS: TRIPLE PHOSPHATE CRYSTAL,UR FEW /HPF (NEGATIVE)
[2016-12-05] MEDS: VOLTAREN 1 % GEL MULTI DOSE TUBE TOP SCH ×3 (13:13→21:31)
--- NOTE | 2016-12-05 16:24 | PCM.PROG ---
Progress Note - Progress Note for Day of Date: 12/05/16 - Subjective Subjective: PATIENT CONTINUES IV ZOSYN FOR CITROBACTER FREUNDII WOUND INFECTION. AND DAUGHTER AT BEDSIDE. WOUND CARE CONTINUES TO SACRAL WOUND. PATIENT IS TACHYPNEIC AND TACHYCARDIC THIS MORNING. SHE CONTINUES WITH SHORTNESS OF BREATH AT REST. PATIENT WITH FEVER OF GREATER THAN 101F DESPITE IV ANTIBIOTICS. ON AUSCULTATION, LUNGS CONTINUE WITH SCATTERED WHEEZING THROUGHOUT. PATIENT CONTINUES ON IV TPN AND ALBUMIN FOR POOR APPETITE. PATIENT CONTINUES WITH GENERALIZED WEAKNESS. CBC WNL EXCEPT: H/H 8.5/26.2. CMP WNL EXCEPT: CARBON DIOXIDE 33.1, GLUCOSE 115, AST 49, ALK PHOS 172, ALBUMIN 2.8. WE WILL ADMINISTER LASIX 40MG IV BID FOR TWO DOSES. WE WILL START BIPAP, OBTAIN AN ECHO, START SOLUMEDROL, DUONEBS, AND DIAZEPAM. WE WILL CHANGE ANTIBIOTIC FROM ZOSYN TO INVANZ ORGANISM IS MORE SENSITIVE TO INVANZ. WE WILL CONTINUE WOUND CARE, ALBUMIN, TPN, ZOSYN, AND PHYSICAL THERAPY. WE WILL FOLLOW UP WITH LABS IN AM. - Past Medical Family Social History Past Med/Fam/Surg Hx: No changes since H&P Allergies: Allergies Ciprofloxacin [From Cipro] Allergy (Verified 11/27/16 20:03) Codeine Allergy (Verified 11/27/16 20:03) Nitrofurantoin [From Macrobid] Allergy (Verified 11/27/16 20:03) Sulfa Antibiotics Allergy (Verified 11/27/16 20:03) Sulfamethoxazole w/Trimethoprim [From Septra] Allergy (Verified 11/27/16 20:03) - Review of Systems ROS: No change since H&P - Vital Signs and I&O's Vital Signs: Temperature 99.5 F Pulse Rate [Left Brachial] 99 Pulse Rate [Right Brachial] 92 Pulse Rate [Apical] 118 Respiratory Rate 24 Blood Pressure [Right Calf] 95/56 Blood Pressure [Right Arm] 117/57 Blood Pressure [Left Arm] 151/70 O2 Sat by Pulse Oximetry 99 Intake and Output: Intake & Output 12/03/16 12/04/16 12/05/16 12/06/16 11:59 11:59 11:59 11:59 Intake Total 2580 4467 2645 720 Output Total 3000 1700 3850 1650 Balance -420 1481 -6965 -809 - Physical Exam Oriented: Normal, Time, Person, Place Eyes: Normal. negative: Blurred Vision, Diplopia, Discharge, Pain, Redness, Photophobia Ear: Normal. negative: Swelling, Ecchymosis, Hemotypanum, Abrasion, Laceration Nose: Normal. negative: Injected, Discharge, Blood Throat: Normal. negative: Tonsillar Hypertrophy, Red, Exudate, Dry Respiratory: Generalized, Wheezes Cardiovascular: Tachycardia : Normal Auscultation: Bowel Sounds: Normal. negative: Bruit Palpation: Normal. negative: Spleen Enlarged, Liver Enlarged, Mass Pulsatile Tenderness: Normal Skin: Wound (Sacral wounds: Superior to sacral, Sacral area, and Inferior to sacral) Musculoskeletal: Instability Psychiatric: Normal Mood Description: Calm Affect: Normal Speech Pattern: Clear, Appropriate - Laboratory and Diagnostics Result Diagrams: 12/05/16 04:15 12/05/16 04:15 Labs: 11/29/16 14:52 Sacral Gram Stain - Final 11/29/16 14:52 Sacral Wound Culture - Final Citrobacter Fre[facility]ii [facility] WBC 6.7 X10^3/uL (3.6-10.0) 12/05/16 04:15 RBC 3.24 X10^6/uL (3.5-5.4) L 12/05/16 04:15 Hgb 8.5 g/dL (12.0-16.0) L 12/05/16 04:15 Hct 26.2 % (36.0-47.0) L 12/05/16 04:15 MCV 80.7 fL (80.0-100.0) 12/05/16 04:15 MCH 26.2 pg (27.0-34.0) L 12/05/16 04:15 MCHC 32.4 g/dL (33.0-35.0) L 12/05/16 04:15 RDW 16.6 % (11.6-16.5) H 12/05/16 04:15 Plt Count 379 X10^3/uL (150.0-450.0) 12/05/16 04:15 Plt Count Comment Adequate (ADEQUATE) 12/03/16 03:55 MPV 8.1 fL (7.4-11.0) 12/05/16 04:15 Neut % 74.8 % (42.0-75.0) 12/05/16 04:15 Lymph % 14.2 % (21.0-51.0) L 12/05/16 04:15 [place] % 8.5 % (0.0-13.0) 12/05/16 04:15 Eos % 2.1 % (0.9-2.9) 12/05/16 04:15 Baso % 0.4 % (0.2-1.0) 12/05/16 04:15 Neut # 5.0 x10^3/uL (2.2-4.8) H 12/05/16 04:15 Lymph # 0.9 X10^3/uL (1.3-2.9) L 12/05/16 04:15 [place] # 0.6 x10^3/uL (0.3-0.8) 12/05/16 04:15 Eos # 0.1 x10^3/uL (0.0-0.2) 12/05/16 04:15 Baso # 0.0 X10^3/uL (0.0-0.1) 12/05/16 04:15 Absolute Nucleated RBC 0.0 /100WBC 12/05/16 04:15 Plt Morphology Comment Normal (NORMAL) 12/03/16 03:55 RBC Morphology Abnormal (NORMAL) A 12/03/16 03:55 Hypochromasia Slight A 12/03/16 03:55 Poikilocytosis Slight A 12/01/16 07:00 Anisocytosis Slight A 11/27/16 20:05 Microcytosis Slight A 12/02/16 06:00 INR Target Range - 11/28/16 05:25 INR 1.29 (0.8-1.3) 11/28/16 05:25 PTT 27.0 SECONDS (22.9-36.5) 11/28/16 05:25 PTT Comment - 11/28/16 05:25 Sodium 140 mmol/L (136-145) 12/05/16 04:15 Corrected Sodium 140 mmol/L (136-145) 12/05/16 04:15 Potassium 3.7 mmol/L (3.5-5.1) 12/05/16 04:15 Chloride 103 mmol/L (98-107) 12/05/16 04:15 Carbon Dioxide 33.1 mmol/L (21-32) H 12/05/16 04:15 BUN 18 mg/dL (7-18) 12/05/16 04:15 Creatinine 0.60 mg/dL (0.55-1.02) 12/05/16 04:15 Est GFR (MDRD) Af Amer > 60 (>60) 12/05/16 04:15 Est GFR (MDRD) Non-Af > 60 (>60) 12/05/16 04:15 Glucose 115 mg/dL (65-99) H 12/05/16 04:15 Lactic Acid 1.3 mmol/L (0.4-2.0) 11/28/16 09:10 Calcium 9.6 mg/dL (8.5-10.1) 12/05/16 04:15 Corrected Calcium 10.6 mg/dL (8.5-10.1) H 12/05/16 04:15 Phosphorus 0.5 mg/dL (2.6-4.7) L 12/01/16 07:00 Magnesium 2.2 mg/dL (1.7-2.9) 12/04/16 03:55 Total Bilirubin 0.40 mg/dL (0.2-1.0) 12/05/16 04:15 AST 49 Units/L (15-37) H 12/05/16 04:15 ALT 38 Units/L (12-78) 12/05/16 04:15 Alkaline Phosphatase 172 Units/L (46-116) H 12/05/16 04:15 Lactate Dehydrogenase 184 Units/L (81-234) 11/27/16 20:05 Creatine Kinase 73 Units/L (26-192) 11/28/16 09:10 CK-MB (CK-2) 1.4 ng/mL (0-4.0) 11/28/16 09:10 CK/CKMB % Calc 1.9 % (<4) 11/28/16 09:10 Troponin I 0.09 ng/mL (0-1.5) 11/28/16 09:10 Total Protein 6.6 g/dL (6.4-8.2) 12/05/16 04:15 Albumin 2.8 g/dL (3.4-5.0) L 12/05/16 04:15 Globulin 3.8 g/dL (2.5-4.5) 12/05/16 04:15 Albumin/Globulin Ratio 0.7 Ratio (1.1-2.1) L 12/05/16 04:15 Triglycerides 81 mg/dL (0-150) 12/01/16 07:00 Amylase 12 Units/L (25-115) L 11/28/16 05:25 Lipase 69 Units/L (73-393) L 11/27/16 20:40 Cortisol 19.2 ug/dL 11/27/16 20:40 Specimen Type Clean catch urine 12/05/16 11:09 Urine Color Yellow (YELLOW) 12/05/16 11:09 Urine Appearance Hazy (CLEAR) 12/05/16 11:09 Urine pH 6.5 (5.0 - 8.0) 12/05/16 11:09 Ur Specific [place] 1.010 (1.000-1.030) 12/05/16 11:09 Urine Protein 2+ (NEGATIVE) 12/05/16 11:09 Urine Glucose (UA) Negative (NEGATIVE) 12/05/16 11:09 Urine Ketones Negative (NEGATIVE) 12/05/16 11:09 Urine Occult Blood 3+ (NEGATIVE) 12/05/16 11:09 Urine Nitrite Negative (NEGATIVE) 12/05/16 11:09 Urine Bilirubin Negative (NEGATIVE) 12/05/16 11:09 Urine Urobilinogen Normal (NORMAL) 12/05/16 11:09 Ur Leukocyte Esterase Negative (NEGATIVE) 12/05/16 11:09 Urine RBC 0-3 /HPF (NEGATIVE) 12/05/16 11:09 Urine WBC 3-5 /HPF (NEGATIVE) 12/05/16 11:09 Ur Squamous Epith Cells Rare /HPF (NEGATIVE) 12/05/16 11:09 Triple Phos Crystals Few /HPF (NEGATIVE) 12/05/16 11:09 Amorphous Sediment Trace /HPF (NEGATIVE) 11/27/16 21:00 Urine Bacteria Trace /HPF (NEGATIVE) 12/05/16 11:09 Ur Culture Indicated? No/not indicated 12/05/16 11:09 Blood Type A NEGATIVE 12/02/16 10:46 Antibody Screen Negative 12/02/16 10:46 Crossmatch See Detail 12/02/16 10:46 - Plan (1) CHF (congestive heart failure) Status: Acute Qualifiers: Congestive heart failure type: C Congestive heart failure chronicity: C Plan: OBTAIN ECHO, START LASIX 40MG IV BID FOR TWO DOSES, SUPPLEMENTAL OXYGEN, MONITOR CHEST XRAY. (2) Citrobacter infection Status: Acute Plan: CONTINUE IV ZOSYN, WOUND CARE, MONITOR. (3) Fever Status: Acute Qualifiers: Fever type: due to other condition Encounter type: E Qualified Code(s): R50.81 - Fever presenting with conditions classified elsewhere Plan: TYLENOL QID TODAY THEN PRN, CONTINUE IV ZOSYN, MONITOR. (4) Hypoalbuminemia due to protein-calorie malnutrition Status: Acute Plan: CONTINUE ALBUMIN, TPN, CONTINUE TO MONITOR LABS (5) Anemia Status: Acute Qualifiers: Anemia type: iron deficiency Iron deficiency anemia type: inadequate dietary iron intake Vitamin B12 deficiency anemia type: V Folate deficiency anemia type: F Bone marrow failure anemia type: B Hemolytic anemia type: H Other causes of anemia: O Qualified Code(s): D50.8 - Other iron deficiency anemias Plan: CONTINUE TO MONITOR H/H, TRANSFUSE NEEDED. (6) Decubital ulcer Status: Chronic Qualifiers: Pressure ulcer location: sacral region Pressure ulcer stage: stage 4 Laterality: L Qualified Code(s): L89.154 - Pressure ulcer of sacral region, stage 4 Plan: CONTINUE WOUND CARE AND DRESSING CHANGES DAILY, CONTINUE TO MONITOR (7) Poor nutrition Status: Acute Plan: CONTINUE TPN AND ALBUMIN (8) Generalized weakness Status: Acute Plan: CONTINUE TPN, ALBUMIN, IV FLUIDS, PHYSICAL THERAPY. (9) UTI (urinary tract infection) Status: Acute Qualifiers: Urinary tract infection type: acute cystitis Hematuria presence: with hematuria Indwelling urinary catheter type: I Encounter type: E Qualified Code(s): N30.01 - Acute cystitis with hematuria Plan: CONTINUE ON ZOSYN, IVF, MONITOR LABS (10) Arthritis Status: Chronic Plan: CONTINUE TO MONITOR (11) CAD (coronary artery disease) Status: Chronic Qualifiers: Coronary Disease-Associated Artery/Lesion type: [place] artery [place] vs. transplanted heart: [place] heart Associated angina: without angina Qualified Code(s): I25.10 - Atherosclerotic heart disease of [place] coronary artery without angina pectoris Plan: CONTINUE TO MONITOR (12) Constipation Status: Chronic Qualifiers: Constipation type: chronic idiopathic constipation Qualified Code(s): K59.04 - Chronic idiopathic constipation Plan: CONTINUE TO MONITOR (13) GERD (gastroesophageal reflux disease) Status: Chronic Qualifiers: Esophagitis presence: esophagitis presence not specified Qualified Code(s) : K21.9 - Gastro-esophageal reflux disease without esophagitis Plan: CONTINUE TO MONITOR (14) Hyperlipidemia Status: Chronic Qualifiers: Hyperlipidemia type: mixed hyperlipidemia Qualified Code(s): E78.2 - Mixed hyperlipidemia Plan: CONTINUE TO MONITOR (15) Hypertension Status: Chronic Qualifiers: Hypertension type: essential hypertension (16) Pulmonary fibrosis Status: Chronic Plan: CONTINUE TO MONITOR (17) Scoliosis Status: Chronic Qualifiers: Scoliosis type: S Idiopathic scoliosis type: I Spinal region: S Plan: CONTINUE TO MONITOR
[2016-12-05] MEDS: SNACK - Diabetic Appropriate PO SCH (21:28)
[2016-12-05] MEDS: ZANAFLEX PO SCH (21:29)
[2016-12-05] MEDS: LIPITOR TAB 40 MG PO SCH (21:29)
[2016-12-05] MEDS: NEURONTIN CAP 300 MG PO SCH (21:29)
[2016-12-05] MEDS: LIPOSYN III 20% 100ML 100 ML IV SCH (21:30)
[2016-12-06] MEDS: DEMEROL INJ IVP PRN ×2 (01:33→14:56)
[2016-12-06 05:30] LABS: ALANINE AMINOTRANSFERASE 50 Units/L (12-78); ALBUMIN 3.2 g/dL (3.4-5.0); ALKALINE PHOSPHATASE 154 Units/L (46-116); ASPARTATE AMINO TRANSFERASE 66 Units/L (15-37); BLOOD UREA NITROGEN 28 mg/dL (7-18); CALCIUM 9.5 mg/dL (8.5-10.1); CHLORIDE 98 mmol/L (98-107); COR CA(FOR HYPOALB) 10.1 mg/dL (8.5-10.1); COR NA(FOR HYPERGLY) 140 mmol/L (136-145); CREATININE 0.71 mg/dL (0.55-1.02); GLUCOSE 197 mg/dL (65-99); SODIUM 138 mmol/L (136-145); TOTAL PROTEIN 7.1 g/dL (6.4-8.2); eGFR BLACK RACES > 60 (>60); eGFR NON BLACK RACES > 60 (>60)
[2016-12-06] MEDS: NS 1000 ML 1,000 ML IV SCH (06:25)
[2016-12-06] MEDS: SOLU-Medrol 40 MG VIAL IVP SCH ×3 (06:25→21:39)
[2016-12-06] MEDS: K-DUR TAB 20 MEQ PO PRN (06:26)
--- NOTE | 2016-12-06 06:28 | RAD ---
HISTORY: Wheezing, shortness of breath Study: Chest one view Comparison: December 05, 2016 Findings: The heart is enlarged. Pulmonary venous congestion is present. The tim are prominent and indistinct interstitial prominence is present suggestive of edema unchanged from the prior examination. Patchy alveolar filling in the right upper lobe may represent asymmetric alveolar edema. No pleural effusi ons are identified. The bony thorax is unremarkable. IMPRESSION: Cardiomegaly with congestive heart failure unchanged from the prior examination Reported By:
[2016-12-06] MEDS: VOLTAREN 1 % GEL MULTI DOSE TUBE TOP SCH ×3 (06:40→22:00)
[2016-12-06] MEDS: DUONEB 0.5 MG/3 MG NEB SCH ×4 (08:57→20:39)
[2016-12-06] MEDS: LOVENOX INJ 30 MG SYR SC SCH ×2 (09:32→21:40)
[2016-12-06] MEDS: ASPIRIN 81 MG CHEWTAB PO SCH (09:32)
[2016-12-06] MEDS: COLACE CAP 100 MG PO SCH ×2 (09:32→21:39)
[2016-12-06] MEDS: ALBUMIN HUMAN 25%- 100ML 100 ML IV SCH ×2 (09:32→21:38)
[2016-12-06] MEDS: INVANZ INJ 1 GM VIAL 1 GM in NS 50 ML IV + SPIKE MINIBAG* 50 ML IV SCH (09:32)
[2016-12-06] MEDS: MIRALAX POWDER (1 DOSE 17GM) PO SCH (09:33)
[2016-12-06] MEDS: MILK OF MAGNESIA PO SCH ×3 (09:33→22:00)
[2016-12-06] MEDS: PROTONIX TAB 40 MG PO SCH (09:35)
[2016-12-06] MEDS: ZESTORETIC 10/ 12.5MG PO SCH (09:35)
[2016-12-06] MEDS: PLAVIX PO SCH (09:35)
[2016-12-06] MEDS: NORCO 10/325 TAB PO PRN (09:36)
[2016-12-06] MEDS: CLINIMIX 4.25 %/10 % 1,000 ML with MVI INJ (ADULT) 10 ML, TRACE ELEMENTS INJ 10 ML, TPN... IV SCH ×10 (11:02→22:10)
--- NOTE | 2016-12-06 14:19 | PCM.PROG ---
Progress Note - Progress Note for Day of Date: 12/06/16 - Subjective Subjective: IV ANTIBIOTIC WAS CHANGED FROM ZOSYN TO INVANZ YESTERDAY FOR CITROBACTER FREUNDII WOUND INFECTION. FEVER HAS BEEN MUCH BETTER CONTROLLED. PATIENT WAS AFEBRILE THROUGH THE NIGHT. DAUGHTER AT BEDSIDE. PATIENT WAS STARTED ON BIPAP YESTERDAY AND IS ON NASAL CANNULA THIS MORNING WITH NO RESPIRATORY DISTRESS NOTED. SHE RECEIVED TWO DOSES OF LASIX YESTERDAY, ALSO. WOUND CARE CONTINUES TO SACRAL WOUND. ON AUSCULTATION, LUNGS ARE DIMINISHED. PATIENT CONTINUES ON IV TPN AND ALBUMIN FOR POOR APPETITE. PATIENT CONTINUES WITH GENERALIZED WEAKNESS AND PHYSICAL THERAPY IS PROGRESSING SLOWLY. CBC WNL EXCEPT: H/H 7.3/22.4. CMP WNL EXCEPT: POTASSIUM 3.0, CARBON DIOXIDE 34.0, BUN 28, GLUCOSE 197, AST 66, ALK PHOS 154, ALBUMIN 3.2. CHEST XRAY REPORTS CARDIOMEGALY WITH CHF UNCHANGED. ECHO REPORTS AN EJECTION FRACTION OF 71%. WE WILL CONTINUE SOLUMEDROL, DUONEBS, DIAZEPAM, AND IV INVANZ. WE WILL CONTINUE WOUND CARE, ALBUMIN, TPN, ZOSYN, AND PHYSICAL THERAPY. WE WILL FOLLOW UP WITH LABS IN AM. - Past Medical Family Social History Past Med/Fam/Surg Hx: No changes since H&P Allergies: Allergies Ciprofloxacin [From Cipro] Allergy (Verified 11/27/16 20:03) Codeine Allergy (Verified 11/27/16 20:03) Nitrofurantoin [From Macrobid] Allergy (Verified 11/27/16 20:03) Sulfa Antibiotics Allergy (Verified 11/27/16 20:03) Sulfamethoxazole w/Trimethoprim [From Septra] Allergy (Verified 11/27/16 20:03) - Review of Systems ROS: No change since H&P - Vital Signs and I&O's Vital Signs: Temperature 98.6 F Pulse Rate [Left Brachial] 89 Pulse Rate [Right Brachial] 92 Pulse Rate [Apical] 118 Pulse Rate 88 Respiratory Rate 20 Blood Pressure [Right Calf] 95/56 Blood Pressure [Right Arm] 141/74 Blood Pressure [Left Arm] 151/70 O2 Sat by Pulse Oximetry 98 Intake and Output: Intake & Output 12/04/16 12/05/16 12/06/16 12/07/16 11:59 11:59 11:59 11:59 Intake Total 4404 7125 2950 Output Total 6863 8161 3671 690 Balance 2767 -1205 -725 -690 - Physical Exam Oriented: Normal, Time, Person, Place Eyes: Normal. negative: Blurred Vision, Diplopia, Discharge, Pain, Redness, Photophobia Ear: Normal. negative: Swelling, Ecchymosis, Hemotypanum, Abrasion, Laceration Nose: Normal. negative: Injected, Discharge, Blood Throat: Normal. negative: Tonsillar Hypertrophy, Red, Exudate, Dry Respiratory: Generalized, Diminished Cardiovascular: Tachycardia : Normal Auscultation: Bowel Sounds: Normal. negative: Bruit Palpation: Normal. negative: Spleen Enlarged, Liver Enlarged, Mass Pulsatile Tenderness: Normal Skin: Wound (Sacral wounds: Superior to sacral, Sacral area, and Inferior to sacral) Musculoskeletal: Instability Psychiatric: Normal Mood Description: Calm Affect: Normal Speech Pattern: Clear, Appropriate - Laboratory and Diagnostics Result Diagrams: 12/06/16 04:10 12/06/16 04:10 Labs: 11/29/16 14:52 Sacral Gram Stain - Final 11/29/16 14:52 Sacral Wound Culture - Final Citrobacter Freundii [facility] WBC 5.7 X10^3/uL (3.6-10.0) 12/06/16 04:10 RBC 2.78 X10^6/uL (3.5-5.4) L 12/06/16 04:10 Hgb 7.3 g/dL (12.0-16.0) L 12/06/16 04:10 Hct 22.4 % (36.0-47.0) L 12/06/16 04:10 MCV 80.6 fL (80.0-100.0) 12/06/16 04:10 MCH 26.4 pg (27.0-34.0) L 12/06/16 04:10 MCHC 32.8 g/dL (33.0-35.0) L 12/06/16 04:10 RDW 16.6 % (11.6-16.5) H 12/06/16 04:10 Plt Count 380 X10^3/uL (150.0-450.0) 12/06/16 04:10 Plt Count Comment Adequate (ADEQUATE) 12/06/16 04:10 MPV 8.6 fL (7.4-11.0) 12/06/16 04:10 Neut % 83.3 % (42.0-75.0) H 12/06/16 04:10 Lymph % 11.4 % (21.0-51.0) L 12/06/16 04:10 [place] % 5.1 % (0.0-13.0) 12/06/16 04:10 Eos % 0.0 % (0.9-2.9) L 12/06/16 04:10 Baso % 0.2 % (0.2-1.0) 12/06/16 04:10 Neut # 4.7 x10^3/uL (2.2-4.8) 12/06/16 04:10 Lymph # 0.6 X10^3/uL (1.3-2.9) L 12/06/16 04:10 [place] # 0.3 x10^3/uL (0.3-0.8) 12/06/16 04:10 Eos # 0.0 x10^3/uL (0.0-0.2) 12/06/16 04:10 Baso # 0.0 X10^3/uL (0.0-0.1) 12/06/16 04:10 Absolute Nucleated RBC 0.0 /100WBC 12/06/16 04:10 Plt Morphology Comment Normal (NORMAL) 12/06/16 04:10 RBC Morphology Abnormal (NORMAL) A 12/06/16 04:10 Hypochromasia Slight A 12/06/16 04:10 Poikilocytosis Slight A 12/01/16 07:00 Anisocytosis Slight A 11/27/16 20:05 Microcytosis Slight A 12/02/16 06:00 INR Target Range - 11/28/16 05:25 INR 1.29 (0.8-1.3) 11/28/16 05:25 PTT 27.0 SECONDS (22.9-36.5) 11/28/16 05:25 PTT Comment - 11/28/16 05:25 Sodium 138 mmol/L (136-145) 12/06/16 04:10 Corrected Sodium 140 mmol/L (136-145) 12/06/16 04:10 Potassium 3.0 mmol/L (3.5-5.1) L* 12/06/16 04:10 Chloride 98 mmol/L (98-107) 12/06/16 04:10 Carbon Dioxide 34.0 mmol/L (21-32) H 12/06/16 04:10 BUN 28 mg/dL (7-18) H 12/06/16 04:10 Creatinine 0.71 mg/dL (0.55-1.02) 12/06/16 04:10 Est GFR (MDRD) Af Amer > 60 (>60) 12/06/16 04:10 Est GFR (MDRD) Non-Af > 60 (>60) 12/06/16 04:10 Glucose 197 mg/dL (65-99) H 12/06/16 04:10 Lactic Acid 1.3 mmol/L (0.4-2.0) 11/28/16 09:10 Calcium 9.5 mg/dL (8.5-10.1) 12/06/16 04:10 Corrected Calcium 10.1 mg/dL (8.5-10.1) 12/06/16 04:10 Phosphorus 0.5 mg/dL (2.6-4.7) L 12/01/16 07:00 Magnesium 2.2 mg/dL (1.7-2.9) 12/04/16 03:55 Total Bilirubin 0.30 mg/dL (0.2-1.0) 12/06/16 04:10 AST 66 Units/L (15-37) H 12/06/16 04:10 ALT 50 Units/L (12-78) 12/06/16 04:10 Alkaline Phosphatase 154 Units/L (46-116) H 12/06/16 04:10 Lactate Dehydrogenase 184 Units/L (81-234) 11/27/16 20:05 Creatine Kinase 73 Units/L (26-192) 11/28/16 09:10 CK-MB (CK-2) 1.4 ng/mL (0-4.0) 11/28/16 09:10 CK/CKMB % Calc 1.9 % (<4) 11/28/16 09:10 Troponin I 0.09 ng/mL (0-1.5) 11/28/16 09:10 Total Protein 7.1 g/dL (6.4-8.2) 12/06/16 04:10 Albumin 3.2 g/dL (3.4-5.0) L 12/06/16 04:10 Globulin 3.9 g/dL (2.5-4.5) 12/06/16 04:10 Albumin/Globulin Ratio 0.8 Ratio (1.1-2.1) L 12/06/16 04:10 Triglycerides 81 mg/dL (0-150) 12/01/16 07:00 Amylase 12 Units/L (25-115) L 11/28/16 05:25 Lipase 69 Units/L (73-393) L 11/27/16 20:40 Cortisol 19.2 ug/dL 11/27/16 20:40 Specimen Type Clean catch urine 12/05/16 11:09 Urine Color Yellow (YELLOW) 12/05/16 11:09 Urine Appearance Hazy (CLEAR) 12/05/16 11:09 Urine pH 6.5 (5.0 - 8.0) 12/05/16 11:09 Ur Specific [place] 1.010 (1.000-1.030) 12/05/16 11:09 Urine Protein 2+ (NEGATIVE) 12/05/16 11:09 Urine Glucose (UA) Negative (NEGATIVE) 12/05/16 11:09 Urine Ketones Negative (NEGATIVE) 12/05/16 11:09 Urine Occult Blood 3+ (NEGATIVE) 12/05/16 11:09 Urine Nitrite Negative (NEGATIVE) 12/05/16 11:09 Urine Bilirubin Negative (NEGATIVE) 12/05/16 11:09 Urine Urobilinogen Normal (NORMAL) 12/05/16 11:09 Ur Leukocyte Esterase Negative (NEGATIVE) 12/05/16 11:09 Urine RBC 0-3 /HPF (NEGATIVE) 12/05/16 11:09 Urine WBC 3-5 /HPF (NEGATIVE) 12/05/16 11:09 Ur Squamous Epith Cells Rare /HPF (NEGATIVE) 12/05/16 11:09 Triple Phos Crystals Few /HPF (NEGATIVE) 12/05/16 11:09 Amorphous Sediment Trace /HPF (NEGATIVE) 11/27/16 21:00 Urine Bacteria Trace /HPF (NEGATIVE) 12/05/16 11:09 Ur Culture Indicated? No/not indicated 12/05/16 11:09 Blood Type A NEGATIVE 12/02/16 10:46 Antibody Screen Negative 12/02/16 10:46 Crossmatch See Detail 12/02/16 10:46 - Plan (1) CHF (congestive heart failure) Status: Acute Qualifiers: Congestive heart failure type: diastolic Congestive heart failure chronicity: acute Qualified Code(s): I50.31 - Acute diastolic (congestive) heart failure Plan: CONTINUE SUPPLEMENTAL OXYGEN, MONITOR CHEST XRAY. (2) Anemia Status: Acute Qualifiers: Anemia type: iron deficiency Iron deficiency anemia type: inadequate dietary iron intake Vitamin B12 deficiency anemia type: V Folate deficiency anemia type: F Bone marrow failure anemia type: B Hemolytic anemia type: H Other causes of anemia: O Qualified Code(s): D50.8 - Other iron deficiency anemias Plan: CONTINUE TO MONITOR H/H, TRANSFUSE NEEDED. (3) Citrobacter infection Status: Acute Plan: CONTINUE IV INVANZ, WOUND CARE, MONITOR VITAL SIGNS, LABS. (4) Fever Status: Acute Qualifiers: Fever type: due to other condition Encounter type: E Qualified Code(s): R50.81 - Fever presenting with conditions classified elsewhere Plan: CONTINUE IV INVANZ, MONITOR. (5) Hypoalbuminemia due to protein-calorie malnutrition Status: Acute Plan: CONTINUE ALBUMIN, TPN, CONTINUE TO MONITOR LABS (6) Decubital ulcer Status: Chronic Qualifiers: Pressure ulcer location: sacral region Pressure ulcer stage: stage 4 Laterality: L Qualified Code(s): L89.154 - Pressure ulcer of sacral region, stage 4 Plan: CONTINUE WOUND CARE AND DRESSING CHANGES DAILY, CONTINUE TO MONITOR (7) Poor nutrition Status: Acute Plan: CONTINUE TPN AND ALBUMIN (8) Generalized weakness Status: Acute Plan: CONTINUE TPN, ALBUMIN, IV FLUIDS, PHYSICAL THERAPY. (9) UTI (urinary tract infection) Status: Acute Qualifiers: Urinary tract infection type: acute cystitis Hematuria presence: with hematuria Indwelling urinary catheter type: I Encounter type: E Qualified Code(s): N30.01 - Acute cystitis with hematuria Plan: CONTINUE INVANZ, IVF, MONITOR LABS (10) Arthritis Status: Chronic Plan: CONTINUE TO MONITOR (11) CAD (coronary artery disease) Status: Chronic Qualifiers: Coronary Disease-Associated Artery/Lesion type: [place] artery [place] vs. transplanted heart: [place] heart Associated angina: without angina Qualified Code(s): I25.10 - Atherosclerotic heart disease of [place] coronary artery without angina pectoris Plan: CONTINUE TO MONITOR (12) Constipation Status: Chronic Qualifiers: Constipation type: chronic idiopathic constipation Qualified Code(s): K59.04 - Chronic idiopathic constipation Plan: CONTINUE TO MONITOR (13) GERD (gastroesophageal reflux disease) Status: Chronic Qualifiers: Esophagitis presence: esophagitis presence not specified Qualified Code(s) : K21.9 - Gastro-esophageal reflux disease without esophagitis Plan: CONTINUE TO MONITOR (14) Hyperlipidemia Status: Chronic Qualifiers: Hyperlipidemia type: mixed hyperlipidemia Qualified Code(s): E78.2 - Mixed hyperlipidemia Plan: CONTINUE TO MONITOR (15) Hypertension Status: Chronic Qualifiers: Hypertension type: essential hypertension (16) Pulmonary fibrosis Status: Chronic Plan: CONTINUE TO MONITOR (17) Scoliosis Status: Chronic Qualifiers: Scoliosis type: S Idiopathic scoliosis type: I Spinal region: S Plan: CONTINUE TO MONITOR
[2016-12-06] MEDS: ULTRAM PO PRN (16:34)
[2016-12-06] MEDS: NEURONTIN CAP 300 MG PO SCH (21:39)
[2016-12-06] MEDS: ZANAFLEX PO SCH (21:40)
[2016-12-06] MEDS: LIPITOR TAB 40 MG PO SCH (21:40)
[2016-12-06] MEDS: SNACK - Diabetic Appropriate PO SCH (22:00)
[2016-12-06] MEDS: HumuLIN R SUBCUT PRN (23:15)
[2016-12-06] MEDS: LIPOSYN III 20% 100ML 100 ML IV SCH (23:59)
[2016-12-07] MEDS: SOLU-Medrol 40 MG VIAL IVP SCH ×3 (05:49→21:03)
[2016-12-07] MEDS: HumuLIN R SUBCUT PRN ×2 (06:07→22:06)
--- NOTE | 2016-12-07 06:16 | RAD ---
HISTORY: Wheezing, shortness of breath Study: Chest one view Comparison: December 06, 2016 Findings: The heart remains enlarged. Mild pulmonary venous congestion is present. The tim are prominent and indistinct and the interstitium remains prominent suggestive of mild edema not significantly differe nt from the prior examination. Areas of patchy alveolar filling are present bilaterally which could represent alveolar edema or multifocal pneumonia. No pleural effusions are identified. The bony thor ax is unremarkable. IMPRESSION: No significant change from the prior examination Reported By:
[2016-12-07 06:25] LABS: BASOPHILS % (AUTO) 0.1 % (0.2-1.0); HEMATOCRIT 23.1 % (36.0-47.0); HEMOGLOBIN 7.5 g/dL (12.0-16.0); LYMPHOCYTES # (AUTO) 0.6 X10^3/uL (1.3-2.9); LYMPHOCYTES % (AUTO) 6.6 % (21.0-51.0); MEAN CORPUSCULAR HEMOGLOBIN 26.4 pg (27.0-34.0); MEAN CORPUSCULAR HGB CONC 32.6 g/dL (33.0-35.0); MEAN PLATELET VOLUME 8.9 fL (7.4-11.0); MONOCYTES # (AUTO) 0.6 x10^3/uL (0.3-0.8); MONOCYTES % (AUTO) 6.9 % (0.0-13.0); NEUTROPHILS # (AUTO) 7.7 x10^3/uL (2.2-4.8); NEUTROPHILS % (AUTO) 86.4 % (42.0-75.0); PLATELET COUNT 515 X10^3/uL (150.0-450.0); RED BLOOD COUNT 2.86 X10^6/uL (3.5-5.4); RED CELL DISTRIBUTION WIDTH 16.7 % (11.6-16.5); WHITE BLOOD COUNT 8.9 X10^3/uL (3.6-10.0)
[2016-12-07 06:57] LABS: ALANINE AMINOTRANSFERASE 161 Units/L (12-78); ALBUMIN 3.6 g/dL (3.4-5.0); ALKALINE PHOSPHATASE 197 Units/L (46-116); ASPARTATE AMINO TRANSFERASE 214 Units/L (15-37); BLOOD UREA NITROGEN 33 mg/dL (7-18); CALCIUM 9.7 mg/dL (8.5-10.1); CARBON DIOXIDE 30.8 mmol/L (21-32); CHLORIDE 100 mmol/L (98-107); COR NA(FOR HYPERGLY) 140 mmol/L (136-145); CREATININE 0.64 mg/dL (0.55-1.02); GLUCOSE 190 mg/dL (65-99); SODIUM 138 mmol/L (136-145); TOTAL PROTEIN 7.3 g/dL (6.4-8.2); eGFR BLACK RACES > 60 (>60); eGFR NON BLACK RACES > 60 (>60)
[2016-12-07 07:00] LABS: PLATELET MORPHOLOGY COMMENT NORMAL (NORMAL)
[2016-12-07 07:01] LABS: ANISOCYTOSIS SLIGHT; HYPOCHROMASIA SLIGHT; MICROCYTOSIS SLIGHT
[2016-12-07] MEDS: VOLTAREN 1 % GEL MULTI DOSE TUBE TOP SCH ×3 (07:17→21:16)
[2016-12-07] MEDS: DUONEB 0.5 MG/3 MG NEB SCH ×4 (08:53→20:47)
[2016-12-07] MEDS ORDERED: NS 1000 ML 0 ML ONE (09:02)
[2016-12-07] MEDS: PLAVIX PO SCH (09:45)
[2016-12-07] MEDS: ZESTORETIC 10/ 12.5MG PO SCH (09:45)
[2016-12-07] MEDS: PROTONIX TAB 40 MG PO SCH (09:45)
[2016-12-07] MEDS: NORCO 10/325 TAB PO PRN ×2 (09:45→21:05)
[2016-12-07] MEDS: ASPIRIN 81 MG CHEWTAB PO SCH (09:45)
[2016-12-07] MEDS: ALBUMIN HUMAN 25%- 100ML 100 ML IV SCH ×2 (09:46→20:51)
[2016-12-07] MEDS: INVANZ INJ 1 GM VIAL 1 GM in NS 50 ML IV + SPIKE MINIBAG* 50 ML IV SCH (09:46)
[2016-12-07] MEDS: LOVENOX INJ 30 MG SYR SC SCH ×2 (09:46→20:53)
[2016-12-07] MEDS: MIRALAX POWDER (1 DOSE 17GM) PO SCH (09:58)
[2016-12-07] MEDS: MILK OF MAGNESIA PO SCH ×2 (09:58→20:50)
[2016-12-07] MEDS: COLACE CAP 100 MG PO SCH ×2 (09:58→20:52)
[2016-12-07] MEDS: TESSALON PERLES PO SCH ×3 (10:05→21:03)
[2016-12-07] MEDS: MEGACE PO SCH ×2 (10:06→20:52)
[2016-12-07] MEDS: CLINIMIX 4.25 %/10 % 1,000 ML with MVI INJ (ADULT) 10 ML, TRACE ELEMENTS INJ 10 ML, TPN... IV SCH ×5 (10:52)
--- NOTE | 2016-12-07 11:26 | PCM.PROG ---
Progress Note - Progress Note for Day of Date: 12/07/16 - Subjective Subjective: PATIENT CONTINUES ON IV INVANZ FOR CITROBACTER FREUNDII WOUND INFECTION. DAUGHTER AND AT BEDSIDE. PATIENT AFEBRILE. PATIENT CONTINUES ON BIPAP INTERMITTENTLY TOLERATED. SHE IS ON NASAL CANNULA THIS MORNING AND TOLERATING WELL. WOUND CARE CONTINUES TO SACRAL WOUND. DAUGHTER REPORTS PATIENT CONTINUES WITH A POOR APPETITE AND MOIST, NON-PRODUCTIVE COUGH. ON AUSCULTATION, LUNGS ARE DIMINISHED. PATIENT CONTINUES ON IV TPN AND ALBUMIN FOR POOR APPETITE. PATIENT CONTINUES WITH GENERALIZED WEAKNESS AND PHYSICAL THERAPY IS PROGRESSING SLOWLY. CBC WNL EXCEPT: H/H 7.5/23.1, PLT COUNT 515. CMP WNL EXCEPT: BUN 33, GLUCOSE 190, AST 214, ALT 161, ALK PHOS 197. CHEST XRAY REPORTS NO SIGNIFICANT CHANGE FROM PRIOR. WE WILL START MEGACE , TESSALON PERLES, AND DISCONTINUE IV FLUIDS. WE WILL CONTINUE SOLUMEDROL, DUONEBS, DIAZEPAM, AND IV INVANZ. WE WILL CONTINUE WOUND CARE, ALBUMIN, TPN, ZOSYN, AND PHYSICAL THERAPY. WE WILL FOLLOW UP WITH LABS IN AM. - Past Medical Family Social History Past Med/Fam/Surg Hx: No changes since H&P Allergies: Allergies Ciprofloxacin [From Cipro] Allergy (Verified 11/27/16 20:03) Codeine Allergy (Verified 11/27/16 20:03) Nitrofurantoin [From Macrobid] Allergy (Verified 11/27/16 20:03) Sulfa Antibiotics Allergy (Verified 11/27/16 20:03) Sulfamethoxazole w/Trimethoprim [From Septra] Allergy (Verified 11/27/16 20:03) - Review of Systems ROS: No change since H&P - Vital Signs and I&O's Vital Signs: Temperature 98.2 F Pulse Rate [Left Brachial] 85 Pulse Rate [Right Brachial] 85 Pulse Rate [Apical] 118 Pulse Rate 82 Respiratory Rate 20 Blood Pressure [Right Calf] 95/56 Blood Pressure [Right Arm] 170/80 Blood Pressure [Left Arm] 151/70 O2 Sat by Pulse Oximetry 98 Intake and Output: Intake & Output 12/04/16 12/05/16 12/06/16 12/07/16 11:59 11:59 11:59 11:59 Intake Total 4467 2645 2950 3208 Output Total 1700 3850 3675 1765 Balance 2767 -1205 -725 1443 - Physical Exam Oriented: Normal, Time, Person, Place Eyes: Normal. negative: Blurred Vision, Diplopia, Discharge, Pain, Redness, Photophobia Ear: Normal. negative: Swelling, Ecchymosis, Hemotypanum, Abrasion, Laceration Nose: Normal. negative: Injected, Discharge, Blood Throat: Normal. negative: Tonsillar Hypertrophy, Red, Exudate, Dry Respiratory: Generalized, Diminished Cardiovascular: Normal. negative: Murmur, Edema : Normal. negative: Dysuria, Hematuria, Frequency, Discharge, Bleeding, Auscultation: Bowel Sounds: Normal. negative: Bruit Palpation: Normal. negative: Spleen Enlarged, Liver Enlarged, Mass Pulsatile Tenderness: Normal Skin: Wound (Sacral wounds: Superior to sacral, Sacral area, and Inferior to sacral) Musculoskeletal: Instability Psychiatric: Normal Mood Description: Calm Affect: Normal Speech Pattern: Clear, Appropriate - Laboratory and Diagnostics Result Diagrams: 12/07/16 04:20 12/07/16 04:20 Labs: 11/29/16 14:52 Sacral Gram Stain - Final 11/29/16 14:52 Sacral Wound Culture - Final Citrobacter Freundii [facility] WBC 8.9 X10^3/uL (3.6-10.0) 12/07/16 04:20 RBC 2.86 X10^6/uL (3.5-5.4) L 12/07/16 04:20 Hgb 7.5 g/dL (12.0-16.0) L 12/07/16 04:20 Hct 23.1 % (36.0-47.0) L 12/07/16 04:20 MCV 81.0 fL (80.0-100.0) 12/07/16 04:20 MCH 26.4 pg (27.0-34.0) L 12/07/16 04:20 MCHC 32.6 g/dL (33.0-35.0) L 12/07/16 04:20 RDW 16.7 % (11.6-16.5) H 12/07/16 04:20 Plt Count 515 X10^3/uL (150.0-450.0) H 12/07/16 04:20 Plt Count Comment Adequate (ADEQUATE) 12/07/16 04:20 MPV 8.9 fL (7.4-11.0) 12/07/16 04:20 Neut % 86.4 % (42.0-75.0) H 12/07/16 04:20 Lymph % 6.6 % (21.0-51.0) L 12/07/16 04:20 [place] % 6.9 % (0.0-13.0) 12/07/16 04:20 Eos % 0.0 % (0.9-2.9) L 12/07/16 04:20 Baso % 0.1 % (0.2-1.0) L 12/07/16 04:20 Neut # 7.7 x10^3/uL (2.2-4.8) H 12/07/16 04:20 Lymph # 0.6 X10^3/uL (1.3-2.9) L 12/07/16 04:20 [place] # 0.6 x10^3/uL (0.3-0.8) 12/07/16 04:20 Eos # 0.0 x10^3/uL (0.0-0.2) 12/07/16 04:20 Baso # 0.0 X10^3/uL (0.0-0.1) 12/07/16 04:20 Absolute Nucleated RBC 0.0 /100WBC 12/07/16 04:20 Nucleated RBCs Cancelled 12/06/16 04:10 Atypical Lymphocytes Cancelled 12/06/16 04:10 Blast Cells Cancelled 12/06/16 04:10 Smudge Cells Cancelled 12/06/16 04:10 Toxic Granulation Cancelled 12/06/16 04:10 Dohle Bodies Cancelled 12/06/16 04:10 [place] Rods Cancelled 12/06/16 04:10 Plt Clumps, EDTA Cancelled 12/06/16 04:10 Giant Platelets Cancelled 12/06/16 04:10 Plt Morphology Comment Normal (NORMAL) 12/07/16 04:20 RBC Morphology Abnormal (NORMAL) A 12/07/16 04:20 Dimorphic RBCs Cancelled 12/06/16 04:10 Polychromasia Cancelled 12/06/16 04:10 Hypochromasia Slight A 12/07/16 04:20 Poikilocytosis Slight A 12/01/16 07:00 Basophilic Stippling Cancelled 12/06/16 04:10 Anisocytosis Slight A 12/07/16 04:20 Microcytosis Slight A 12/07/16 04:20 Macrocytosis Cancelled 12/06/16 04:10 Spherocytes Cancelled 12/06/16 04:10 Pappenheimer Bodies Cancelled 12/06/16 04:10 Sickle Cells Cancelled 12/06/16 04:10 Target Cells Cancelled 12/06/16 04:10 Tear Drop Cells Cancelled 12/06/16 04:10 Ovalocytes Cancelled 12/06/16 04:10 Stomatocytes Cancelled 12/06/16 04:10 Helmet Cells Cancelled 12/06/16 04:10 [place] Bodies Cancelled 12/06/16 04:10 [place] Rings Cancelled 12/06/16 04:10 [place] Cells Cancelled 12/06/16 04:10 Crenated Cell Cancelled 12/06/16 04:10 Acanthocytes (Spur) Cancelled 12/06/16 04:10 Rouleaux Cancelled 12/06/16 04:10 Schistocytes Cancelled 12/06/16 04:10 INR Target Range - 11/28/16 05:25 INR 1.29 (0.8-1.3) 11/28/16 05:25 PTT 27.0 SECONDS (22.9-36.5) 11/28/16 05:25 PTT Comment - 11/28/16 05:25 Sodium 138 mmol/L (136-145) 12/07/16 04:20 Corrected Sodium 140 mmol/L (136-145) 12/07/16 04:20 Potassium 4.0 mmol/L (3.5-5.1) 12/07/16 04:20 Chloride 100 mmol/L (98-107) 12/07/16 04:20 Carbon Dioxide 30.8 mmol/L (21-32) 12/07/16 04:20 BUN 33 mg/dL (7-18) H 12/07/16 04:20 Creatinine 0.64 mg/dL (0.55-1.02) 12/07/16 04:20 Est GFR (MDRD) Af Amer > 60 (>60) 12/07/16 04:20 Est GFR (MDRD) Non-Af > 60 (>60) 12/07/16 04:20 Glucose 190 mg/dL (65-99) H 12/07/16 04:20 Lactic Acid 1.3 mmol/L (0.4-2.0) 11/28/16 09:10 Calcium 9.7 mg/dL (8.5-10.1) 12/07/16 04:20 Corrected Calcium TNP 12/07/16 04:20 Phosphorus 0.5 mg/dL (2.6-4.7) L 12/01/16 07:00 Magnesium 2.2 mg/dL (1.7-2.9) 12/04/16 03:55 Total Bilirubin 0.30 mg/dL (0.2-1.0) 12/07/16 04:20 AST 214 Units/L (15-37) H 12/07/16 04:20 ALT 161 Units/L (12-78) H 12/07/16 04:20 Alkaline Phosphatase 197 Units/L (46-116) H 12/07/16 04:20 Lactate Dehydrogenase 184 Units/L (81-234) 11/27/16 20:05 Creatine Kinase 73 Units/L (26-192) 11/28/16 09:10 CK-MB (CK-2) 1.4 ng/mL (0-4.0) 11/28/16 09:10 CK/CKMB % Calc 1.9 % (<4) 11/28/16 09:10 Troponin I 0.09 ng/mL (0-1.5) 11/28/16 09:10 B-Natriuretic Peptide 1890 pg/mL (0-79) H* 12/07/16 04:20 Total Protein 7.3 g/dL (6.4-8.2) 12/07/16 04:20 Albumin 3.6 g/dL (3.4-5.0) 12/07/16 04:20 Globulin 3.7 g/dL (2.5-4.5) 12/07/16 04:20 Albumin/Globulin Ratio 1.0 Ratio (1.1-2.1) L 12/07/16 04:20 Triglycerides 81 mg/dL (0-150) 12/01/16 07:00 Amylase 12 Units/L (25-115) L 11/28/16 05:25 Lipase 69 Units/L (73-393) L 11/27/16 20:40 Cortisol 19.2 ug/dL 11/27/16 20:40 Specimen Type Clean catch urine 12/05/16 11:09 Urine Color Yellow (YELLOW) 12/05/16 11:09 Urine Appearance Hazy (CLEAR) 12/05/16 11:09 Urine pH 6.5 (5.0 - 8.0) 12/05/16 11:09 Ur Specific [place] 1.010 (1.000-1.030) 12/05/16 11:09 Urine Protein 2+ (NEGATIVE) 12/05/16 11:09 Urine Glucose (UA) Negative (NEGATIVE) 12/05/16 11:09 Urine Ketones Negative (NEGATIVE) 12/05/16 11:09 Urine Occult Blood 3+ (NEGATIVE) 12/05/16 11:09 Urine Nitrite Negative (NEGATIVE) 12/05/16 11:09 Urine Bilirubin Negative (NEGATIVE) 12/05/16 11:09 Urine Urobilinogen Normal (NORMAL) 12/05/16 11:09 Ur Leukocyte Esterase Negative (NEGATIVE) 12/05/16 11:09 Urine RBC 0-3 /HPF (NEGATIVE) 12/05/16 11:09 Urine WBC 3-5 /HPF (NEGATIVE) 12/05/16 11:09 Ur Squamous Epith Cells Rare /HPF (NEGATIVE) 12/05/16 11:09 Triple Phos Crystals Few /HPF (NEGATIVE) 12/05/16 11:09 Amorphous Sediment Trace /HPF (NEGATIVE) 11/27/16 21:00 Urine Bacteria Trace /HPF (NEGATIVE) 12/05/16 11:09 Ur Culture Indicated? No/not indicated 12/05/16 11:09 Stool Description Fob tube 12/06/16 17:03 Stl Occult Blood (IFOB) Positive (NEGATIVE) A 12/06/16 17:03 Blood Type A NEGATIVE 12/02/16 10:46 Antibody Screen Negative 12/02/16 10:46 Crossmatch See Detail 12/02/16 10:46 - Plan (1) CHF (congestive heart failure) Status: Acute Qualifiers: Congestive heart failure type: diastolic Congestive heart failure chronicity: acute Qualified Code(s): I50.31 - Acute diastolic (congestive) heart failure Plan: CONTINUE SUPPLEMENTAL OXYGEN, MONITOR CHEST XRAY. (2) Citrobacter infection Status: Acute Plan: CONTINUE IV INVANZ, WOUND CARE, MONITOR VITAL SIGNS, LABS. (3) Anemia Status: Acute Qualifiers: Anemia type: iron deficiency Iron deficiency anemia type: inadequate dietary iron intake Vitamin B12 deficiency anemia type: V Folate deficiency anemia type: F Bone marrow failure anemia type: B Hemolytic anemia type: H Other causes of anemia: O Qualified Code(s): D50.8 - Other iron deficiency anemias Plan: CONTINUE TO MONITOR H/H, TRANSFUSE NEEDED. (4) Fever Status: Acute Qualifiers: Fever type: due to other condition Encounter type: E Qualified Code(s): R50.81 - Fever presenting with conditions classified elsewhere Plan: CONTINUE IV INVANZ, MONITOR. (5) Poor nutrition Status: Acute Plan: START MEGACE, CONTINUE TPN AND ALBUMIN (6) Hypoalbuminemia due to protein-calorie malnutrition Status: Acute Plan: CONTINUE ALBUMIN, TPN, CONTINUE TO MONITOR LABS (7) Decubital ulcer Status: Chronic Qualifiers: Pressure ulcer location: sacral region Pressure ulcer stage: stage 4 Laterality: L Qualified Code(s): L89.154 - Pressure ulcer of sacral region, stage 4 Plan: CONTINUE WOUND CARE AND DRESSING CHANGES DAILY, CONTINUE TO MONITOR (8) Generalized weakness Status: Acute Plan: CONTINUE TPN, ALBUMIN, IV FLUIDS, PHYSICAL THERAPY. (9) UTI (urinary tract infection) Status: Acute Qualifiers: Urinary tract infection type: acute cystitis Hematuria presence: with hematuria Indwelling urinary catheter type: I Encounter type: E Qualified Code(s): N30.01 - Acute cystitis with hematuria Plan: CONTINUE INVANZ, IVF, MONITOR LABS (10) Arthritis Status: Chronic Plan: CONTINUE TO MONITOR (11) CAD (coronary artery disease) Status: Chronic Qualifiers: Coronary Disease-Associated Artery/Lesion type: [place] artery [place] vs. transplanted heart: [place] heart Associated angina: without angina Qualified Code(s): I25.10 - Atherosclerotic heart disease of [place] coronary artery without angina pectoris Plan: CONTINUE TO MONITOR (12) Constipation Status: Chronic Qualifiers: Constipation type: chronic idiopathic constipation Qualified Code(s): K59.04 - Chronic idiopathic constipation Plan: CONTINUE TO MONITOR (13) GERD (gastroesophageal reflux disease) Status: Chronic Qualifiers: Esophagitis presence: esophagitis presence not specified Qualified Code(s) : K21.9 - Gastro-esophageal reflux disease without esophagitis Plan: CONTINUE TO MONITOR (14) Hyperlipidemia Status: Chronic Qualifiers: Hyperlipidemia type: mixed hyperlipidemia Qualified Code(s): E78.2 - Mixed hyperlipidemia Plan: CONTINUE TO MONITOR (15) Hypertension Status: Chronic Qualifiers: Hypertension type: essential hypertension (16) Pulmonary fibrosis Status: Chronic Plan: CONTINUE TO MONITOR (17) Scoliosis Status: Chronic Qualifiers: Scoliosis type: S Idiopathic scoliosis type: I Spinal region: S Plan: CONTINUE TO MONITOR
[2016-12-07] MEDS: LASIX IVP SCH ×2 (14:16→20:53)
[2016-12-07] MEDS: ZANAFLEX PO SCH (20:52)
[2016-12-07] MEDS: LIPITOR TAB 40 MG PO SCH (20:52)
[2016-12-07] MEDS: NEURONTIN CAP 300 MG PO SCH (20:52)
[2016-12-07] MEDS: LIPOSYN III 20% 100ML 100 ML IV SCH (20:54)
[2016-12-07] MEDS: SNACK - Diabetic Appropriate PO SCH (20:54)
[2016-12-08] MEDS: SOLU-Medrol 40 MG VIAL IVP SCH ×3 (05:52→21:01)
[2016-12-08] MEDS: TESSALON PERLES PO SCH ×3 (05:53→21:01)
[2016-12-08] MEDS: VOLTAREN 1 % GEL MULTI DOSE TUBE TOP SCH ×3 (05:59→21:01)
[2016-12-08 06:50] LABS: BASOPHILS % (AUTO) 0.2 % (0.2-1.0); EOSINOPHILS % (AUTO) 0.1 % (0.9-2.9); HEMOGLOBIN 7.6 g/dL (12.0-16.0); LYMPHOCYTES # (AUTO) 0.7 X10^3/uL (1.3-2.9); MEAN CORPUSCULAR HEMOGLOBIN 25.9 pg (27.0-34.0); MEAN CORPUSCULAR HGB CONC 31.8 g/dL (33.0-35.0); MEAN CORPUSCULAR VOLUME 81.5 fL (80.0-100.0); MEAN PLATELET VOLUME 8.7 fL (7.4-11.0); MONOCYTES # (AUTO) 0.7 x10^3/uL (0.3-0.8); MONOCYTES % (AUTO) 6.9 % (0.0-13.0); NEUTROPHILS # (AUTO) 8.1 x10^3/uL (2.2-4.8); NEUTROPHILS % (AUTO) 85.8 % (42.0-75.0); PLATELET COUNT 538 X10^3/uL (150.0-450.0); RED BLOOD COUNT 2.95 X10^6/uL (3.5-5.4); RED CELL DISTRIBUTION WIDTH 17.2 % (11.6-16.5); WHITE BLOOD COUNT 9.5 X10^3/uL (3.6-10.0)
[2016-12-08 07:13] LABS: ANISOCYTOSIS SLIGHT; HYPOCHROMASIA SLIGHT; PLATELET MORPHOLOGY COMMENT NORMAL (NORMAL)
--- NOTE | 2016-12-08 08:01 | RAD ---
HISTORY: Shortness of breath, CHF Study: Single view chest Comparison: 12/07/2016 Findings: Single portable view. Low lung volumes. Persistent interstitial opacities are seen throughout the [place] ngs. No effusion or pneumothorax. Stable mildly enlarged cardiac silhouette. The soft tissues are u nremarkable. IMPRESSION: 1. Stable chest with persistent interstitial opacities throughout the lungs. Reported By:
[2016-12-08 08:26] LABS: ALANINE AMINOTRANSFERASE 134 Units/L (12-78); ALBUMIN 3.7 g/dL (3.4-5.0); ALKALINE PHOSPHATASE 160 Units/L (46-116); ASPARTATE AMINO TRANSFERASE 83 Units/L (15-37); BLOOD UREA NITROGEN 38 mg/dL (7-18); CALCIUM 9.7 mg/dL (8.5-10.1); CARBON DIOXIDE 29.2 mmol/L (21-32); CHLORIDE 103 mmol/L (98-107); COR NA(FOR HYPERGLY) 146 mmol/L (136-145); CREATININE 0.67 mg/dL (0.55-1.02); GLUCOSE 162 mg/dL (65-99); SODIUM 145 mmol/L (136-145); TOTAL PROTEIN 7.2 g/dL (6.4-8.2); eGFR BLACK RACES > 60 (>60); eGFR NON BLACK RACES > 60 (>60)
[2016-12-08] MEDS: ALBUMIN HUMAN 25%- 100ML 100 ML IV SCH ×2 (09:11→20:23)
[2016-12-08] MEDS: DUONEB 0.5 MG/3 MG NEB SCH ×4 (09:11→21:26)
[2016-12-08] MEDS: INVANZ INJ 1 GM VIAL 1 GM in NS 50 ML IV + SPIKE MINIBAG* 50 ML IV SCH (09:11)
[2016-12-08] MEDS: LOVENOX INJ 30 MG SYR SC SCH ×2 (09:12→20:22)
[2016-12-08] MEDS: MEGACE PO SCH ×2 (09:16→20:25)
[2016-12-08] MEDS: ASPIRIN 81 MG CHEWTAB PO SCH (09:16)
[2016-12-08] MEDS: MIRALAX POWDER (1 DOSE 17GM) PO SCH (09:16)
[2016-12-08] MEDS: PLAVIX PO SCH (09:16)
[2016-12-08] MEDS: ZESTORETIC 10/ 12.5MG PO SCH (09:16)
[2016-12-08] MEDS: PROTONIX TAB 40 MG PO SCH (09:16)
[2016-12-08] MEDS: COLACE CAP 100 MG PO SCH ×2 (09:16→20:25)
[2016-12-08] MEDS: MILK OF MAGNESIA PO SCH ×2 (09:17→20:57)
[2016-12-08] MEDS: CLINIMIX 4.25 %/10 % 1,000 ML with MVI INJ (ADULT) 10 ML, TRACE ELEMENTS INJ 10 ML, TPN... IV SCH ×5 (13:25)
[2016-12-08] MEDS: HumuLIN R SUBCUT PRN ×2 (14:51→21:31)
[2016-12-08] MEDS: SNACK - Diabetic Appropriate PO SCH (19:45)
[2016-12-08] MEDS: NEURONTIN CAP 300 MG PO SCH (20:24)
[2016-12-08] MEDS: LIPOSYN III 20% 100ML 100 ML IV SCH (20:25)
[2016-12-08] MEDS: LIPITOR TAB 40 MG PO SCH (20:25)
[2016-12-08] MEDS: ZANAFLEX PO SCH (20:25)
[2016-12-08] MEDS: DEMEROL INJ IVP PRN (21:30)
[2016-12-08] MEDS ORDERED: DRUG FILTER EXTENSION SET ONE (22:59)
[2016-12-09] MEDS: CLINIMIX 4.25 %/10 % 1,000 ML with MVI INJ (ADULT) 10 ML, TRACE ELEMENTS INJ 10 ML, TPN... IV SCH ×20 (00:05→23:51)
[2016-12-09] MEDS ORDERED: SALINE 3% 15 ML NEB TX ONE (04:42)
[2016-12-09] MEDS ORDERED: SALINE 3% 15 ML NEB TX NEB ONE (04:54)
[2016-12-09 04:58] LABS: BASOPHILS % (AUTO) 0 % (0.2-1.0); HEMATOCRIT 23.3 % (36.0-47.0); HEMOGLOBIN 7.6 g/dL (12.0-16.0); LYMPHOCYTES # (AUTO) 0.8 X10^3/uL (1.3-2.9); LYMPHOCYTES % (AUTO) 7.4 % (21.0-51.0); MEAN CORPUSCULAR HEMOGLOBIN 26.2 pg (27.0-34.0); MEAN CORPUSCULAR HGB CONC 32.4 g/dL (33.0-35.0); MEAN CORPUSCULAR VOLUME 80.9 fL (80.0-100.0); MEAN PLATELET VOLUME 8.8 fL (7.4-11.0); MONOCYTES # (AUTO) 0.8 x10^3/uL (0.3-0.8); MONOCYTES % (AUTO) 7.4 % (0.0-13.0); NEUTROPHILS # (AUTO) 9.1 x10^3/uL (2.2-4.8); NEUTROPHILS % (AUTO) 85.2 % (42.0-75.0); PLATELET COUNT 588 X10^3/uL (150.0-450.0); RED BLOOD COUNT 2.88 X10^6/uL (3.5-5.4); RED CELL DISTRIBUTION WIDTH 17.2 % (11.6-16.5); WHITE BLOOD COUNT 10.7 X10^3/uL (3.6-10.0)
[2016-12-09 05:09] LABS: ALANINE AMINOTRANSFERASE 139 Units/L (12-78); ALBUMIN 3.7 g/dL (3.4-5.0); ALKALINE PHOSPHATASE 134 Units/L (46-116); ASPARTATE AMINO TRANSFERASE 87 Units/L (15-37); BLOOD UREA NITROGEN 32 mg/dL (7-18); CALCIUM 9.6 mg/dL (8.5-10.1); CARBON DIOXIDE 34.4 mmol/L (21-32); CHLORIDE 103 mmol/L (98-107); COR NA(FOR HYPERGLY) 144 mmol/L (136-145); CREATININE 0.59 mg/dL (0.55-1.02); GLUCOSE 196 mg/dL (65-99); SODIUM 142 mmol/L (136-145); TOTAL PROTEIN 6.9 g/dL (6.4-8.2); eGFR BLACK RACES > 60 (>60); eGFR NON BLACK RACES > 60 (>60)
[2016-12-09 05:19] LABS: ANISOCYTOSIS 1+; HYPOCHROMASIA 1+; PLATELET MORPHOLOGY COMMENT NORMAL (NORMAL)
[2016-12-09] MEDS: TESSALON PERLES PO SCH ×3 (06:00→21:09)
[2016-12-09] MEDS: VOLTAREN 1 % GEL MULTI DOSE TUBE TOP SCH ×3 (06:00→21:10)
[2016-12-09] MEDS: SOLU-Medrol 40 MG VIAL IVP SCH ×3 (06:00→21:08)
[2016-12-09] MEDS: DUONEB 0.5 MG/3 MG NEB SCH ×4 (08:04→20:34)
--- NOTE | 2016-12-09 08:05 | RAD ---
HISTORY: Sepsis, shortness of breath Study: Single view chest Comparison: 12/08/2016 Findings: Stable alveolar and interstitial opacities are seen diffusely throughout the lungs. The cardiac and mediastinal contours are within normal limits. The soft tissues are unremarkable. IMPRESSION: 1. Stable diffuse opacities throughout the lungs. Reported By:
[2016-12-09] MEDS: ALBUMIN HUMAN 25%- 100ML 100 ML IV SCH ×2 (09:24→21:08)
[2016-12-09] MEDS: INVANZ INJ 1 GM VIAL 1 GM in NS 50 ML IV + SPIKE MINIBAG* 50 ML IV SCH (09:27)
[2016-12-09] MEDS: COLACE CAP 100 MG PO SCH ×2 (09:30→21:09)
[2016-12-09] MEDS: MEGACE PO SCH ×2 (09:30→21:09)
[2016-12-09] MEDS: ASPIRIN 81 MG CHEWTAB PO SCH (09:30)
[2016-12-09] MEDS: PROTONIX TAB 40 MG PO SCH (09:30)
[2016-12-09] MEDS: ZESTORETIC 10/ 12.5MG PO SCH (09:30)
[2016-12-09] MEDS: PLAVIX PO SCH (09:34)
[2016-12-09] MEDS: LOVENOX INJ 30 MG SYR SC SCH ×2 (09:34→21:06)
[2016-12-09] MEDS: MIRALAX POWDER (1 DOSE 17GM) PO SCH (09:35)
[2016-12-09] MEDS: MILK OF MAGNESIA PO SCH ×2 (09:35→21:07)
[2016-12-09] MEDS: NORCO 10/325 TAB PO PRN (10:02)
[2016-12-09] MEDS: ULTRAM PO PRN (19:12)
[2016-12-09] MEDS: SNACK - Diabetic Appropriate PO SCH (20:00)
[2016-12-09] MEDS: HumuLIN R SUBCUT PRN (21:07)
[2016-12-09] MEDS: NEURONTIN CAP 300 MG PO SCH (21:09)
[2016-12-09] MEDS: LIPITOR TAB 40 MG PO SCH (21:09)
[2016-12-09] MEDS: ZANAFLEX PO SCH (21:09)
[2016-12-09] MEDS: LIPOSYN III 20% 100ML 100 ML IV SCH (21:39)
[2016-12-10] MEDS: DEMEROL INJ IVP PRN (00:31)
[2016-12-10] MEDS: ULTRAM PO PRN ×2 (04:46→04:49)
[2016-12-10] MEDS: SOLU-Medrol 40 MG VIAL IVP SCH ×2 (06:13→13:54)
[2016-12-10] MEDS: TESSALON PERLES PO SCH ×3 (06:13→21:50)
[2016-12-10] MEDS: VOLTAREN 1 % GEL MULTI DOSE TUBE TOP SCH ×3 (06:14→21:51)
[2016-12-10 06:30] LABS: BASOPHILS % (AUTO) 0.2 % (0.2-1.0); HEMATOCRIT 24.8 % (36.0-47.0); LYMPHOCYTES # (AUTO) 0.7 X10^3/uL (1.3-2.9); LYMPHOCYTES % (AUTO) 4.6 % (21.0-51.0); MEAN CORPUSCULAR HEMOGLOBIN 26.3 pg (27.0-34.0); MEAN CORPUSCULAR HGB CONC 32.3 g/dL (33.0-35.0); MEAN CORPUSCULAR VOLUME 81.4 fL (80.0-100.0); MEAN PLATELET VOLUME 8.6 fL (7.4-11.0); MONOCYTES # (AUTO) 0.6 x10^3/uL (0.3-0.8); MONOCYTES % (AUTO) 3.9 % (0.0-13.0); NEUTROPHILS # (AUTO) 13.1 x10^3/uL (2.2-4.8); NEUTROPHILS % (AUTO) 91.3 % (42.0-75.0); PLATELET COUNT 630 X10^3/uL (150.0-450.0); RED BLOOD COUNT 3.05 X10^6/uL (3.5-5.4); RED CELL DISTRIBUTION WIDTH 17.4 % (11.6-16.5); WHITE BLOOD COUNT 14.3 X10^3/uL (3.6-10.0)
[2016-12-10 06:42] LABS: ALANINE AMINOTRANSFERASE 106 Units/L (12-78); ALBUMIN 3.7 g/dL (3.4-5.0); ALKALINE PHOSPHATASE 108 Units/L (46-116); ASPARTATE AMINO TRANSFERASE 38 Units/L (15-37); BLOOD UREA NITROGEN 31 mg/dL (7-18); CALCIUM 9.5 mg/dL (8.5-10.1); CARBON DIOXIDE 33.3 mmol/L (21-32); CHLORIDE 104 mmol/L (98-107); COR NA(FOR HYPERGLY) 144 mmol/L (136-145); CREATININE 0.52 mg/dL (0.55-1.02); GLUCOSE 183 mg/dL (65-99); SODIUM 142 mmol/L (136-145); TOTAL PROTEIN 6.7 g/dL (6.4-8.2); eGFR BLACK RACES > 60 (>60); eGFR NON BLACK RACES > 60 (>60)
--- NOTE | 2016-12-10 07:02 | RAD ---
HISTORY: Fever and cough Study: Portable AP chest Comparison: 12/09/2016 Findings: The heart is unchanged. The pulmonary vessels are engorged centrally but less prominent . There are hazy interstitial opacities throughout both lungs which have decreased. No effusion is seen. IMPRESSION: Slowly resolving pulmonary edema and decreasing interstitial opacities throughout both lungs. Reported By:
[2016-12-10 07:35] LABS: PLATELET MORPHOLOGY COMMENT NORMAL (NORMAL)
[2016-12-10] MEDS: DUONEB 0.5 MG/3 MG NEB SCH ×4 (08:35→20:19)
[2016-12-10] MEDS: ALBUMIN HUMAN 25%- 100ML 100 ML IV SCH ×2 (09:29→21:48)
[2016-12-10] MEDS: INVANZ INJ 1 GM VIAL 1 GM in NS 50 ML IV + SPIKE MINIBAG* 50 ML IV SCH (09:32)
[2016-12-10] MEDS: MIRALAX POWDER (1 DOSE 17GM) PO SCH (09:33)
[2016-12-10] MEDS: ZESTORETIC 10/ 12.5MG PO SCH (09:34)
[2016-12-10] MEDS: MEGACE PO SCH ×2 (09:34→21:49)
[2016-12-10] MEDS: COLACE CAP 100 MG PO SCH ×2 (09:34→21:50)
[2016-12-10] MEDS: PROTONIX TAB 40 MG PO SCH (09:34)
[2016-12-10] MEDS: ASPIRIN 81 MG CHEWTAB PO SCH (09:34)
[2016-12-10] MEDS: PLAVIX PO SCH (09:34)
[2016-12-10] MEDS: LOVENOX INJ 30 MG SYR SC SCH ×2 (09:35→21:48)
[2016-12-10] MEDS: MILK OF MAGNESIA PO SCH ×2 (09:45→21:49)
[2016-12-10] MEDS: CLINIMIX 4.25 %/10 % 1,000 ML with MVI INJ (ADULT) 10 ML, TRACE ELEMENTS INJ 10 ML, TPN... IV SCH ×10 (10:49→22:34)
[2016-12-10] MEDS: NORCO 10/325 TAB PO PRN (19:10)
[2016-12-10] MEDS: SNACK - Diabetic Appropriate PO SCH (20:00)
[2016-12-10] MEDS: ZOFRAN INJ 4 MG VIAL IVP PRN (20:51)
[2016-12-10] MEDS: NEURONTIN CAP 300 MG PO SCH (21:49)
[2016-12-10] MEDS: HumuLIN R SUBCUT PRN (21:50)
[2016-12-10] MEDS: LIPITOR TAB 40 MG PO SCH (21:50)
[2016-12-10] MEDS: ZANAFLEX PO SCH (21:50)
[2016-12-10] MEDS: LIPOSYN III 20% 100ML 100 ML IV SCH (22:33)
[2016-12-11] MEDS: DEMEROL INJ IVP PRN ×2 (02:56→19:03)
[2016-12-11] MEDS: TESSALON PERLES PO SCH ×3 (05:56→22:23)
[2016-12-11] MEDS: VOLTAREN 1 % GEL MULTI DOSE TUBE TOP SCH ×3 (05:56→21:29)
[2016-12-11 06:16] LABS: ALANINE AMINOTRANSFERASE 83 Units/L (12-78); ALBUMIN 3.8 g/dL (3.4-5.0); ALKALINE PHOSPHATASE 95 Units/L (46-116); ASPARTATE AMINO TRANSFERASE 34 Units/L (15-37); BLOOD UREA NITROGEN 32 mg/dL (7-18); CALCIUM 9.6 mg/dL (8.5-10.1); CHLORIDE 104 mmol/L (98-107); COR NA(FOR HYPERGLY) 143 mmol/L (136-145); CREATININE 0.52 mg/dL (0.55-1.02); GLUCOSE 127 mg/dL (65-99); SODIUM 142 mmol/L (136-145); TOTAL PROTEIN 6.6 g/dL (6.4-8.2); eGFR BLACK RACES > 60 (>60); eGFR NON BLACK RACES > 60 (>60)
[2016-12-11 06:21] LABS: BASOPHILS % (AUTO) 0.2 % (0.2-1.0); HEMATOCRIT 23.2 % (36.0-47.0); HEMOGLOBIN 7.7 g/dL (12.0-16.0); LYMPHOCYTES # (AUTO) 1.2 X10^3/uL (1.3-2.9); LYMPHOCYTES % (AUTO) 9.6 % (21.0-51.0); MEAN CORPUSCULAR HEMOGLOBIN 26.9 pg (27.0-34.0); MEAN CORPUSCULAR HGB CONC 33.1 g/dL (33.0-35.0); MEAN CORPUSCULAR VOLUME 81.4 fL (80.0-100.0); MEAN PLATELET VOLUME 8.4 fL (7.4-11.0); MONOCYTES # (AUTO) 0.9 x10^3/uL (0.3-0.8); MONOCYTES % (AUTO) 7.1 % (0.0-13.0); NEUTROPHILS # (AUTO) 10.8 x10^3/uL (2.2-4.8); NEUTROPHILS % (AUTO) 83.1 % (42.0-75.0); PLATELET COUNT 618 X10^3/uL (150.0-450.0); RED BLOOD COUNT 2.85 X10^6/uL (3.5-5.4); RED CELL DISTRIBUTION WIDTH 17.6 % (11.6-16.5); WHITE BLOOD COUNT 12.9 X10^3/uL (3.6-10.0)
[2016-12-11 06:42] LABS: HYPOCHROMASIA SLIGHT; PLATELET MORPHOLOGY COMMENT NORMAL (NORMAL)
[2016-12-11] MEDS: DUONEB 0.5 MG/3 MG NEB SCH ×4 (08:47→20:27)
[2016-12-11] MEDS: ALBUMIN HUMAN 25%- 100ML 100 ML IV SCH ×2 (09:33→21:14)
[2016-12-11] MEDS: INVANZ INJ 1 GM VIAL 1 GM in NS 50 ML IV + SPIKE MINIBAG* 50 ML IV SCH ×2 (09:33→10:40)
[2016-12-11] MEDS: ZESTORETIC 10/ 12.5MG PO SCH (09:35)
[2016-12-11] MEDS: MEGACE PO SCH ×2 (09:35→21:13)
[2016-12-11] MEDS: COLACE CAP 100 MG PO SCH ×2 (09:35→21:13)
[2016-12-11] MEDS: PROTONIX TAB 40 MG PO SCH (09:35)
[2016-12-11] MEDS ORDERED: SILVER NITRATE STICK APPL ONE (09:36)
[2016-12-11] MEDS: MILK OF MAGNESIA PO SCH ×2 (09:39→21:13)
[2016-12-11] MEDS: MIRALAX POWDER (1 DOSE 17GM) PO SCH (09:39)
[2016-12-11] MEDS: LOVENOX INJ 30 MG SYR SC SCH ×2 (09:55→21:15)
[2016-12-11] MEDS: ASPIRIN 81 MG CHEWTAB PO SCH (09:56)
[2016-12-11] MEDS: PLAVIX PO SCH (09:56)
[2016-12-11] MEDS ORDERED: NS 250 ML IV 250 ML IV ONE (10:35)
[2016-12-11] MEDS: CLINIMIX 4.25 %/10 % 1,000 ML with MVI INJ (ADULT) 10 ML, TRACE ELEMENTS INJ 10 ML, TPN... IV SCH ×10 (10:47→23:15)
--- NOTE | 2016-12-11 13:04 | PCM.PROG ---
Progress Note - Progress Note for Day of Date: 12/11/16 - Subjective Subjective: Patient is a 66-year-old white female, patient of Dr. Coronel, admitted on 11/28 with multiple exacerbations of chronic illnesses including respiratory distress/COPD, UTI and a sacral decubitus that was infected. Patient has been on IV antibiotics for infections, plan to continue, chest x- ray this morning revealed improving pulmonary edema and filtrate improvement. Patient continues to have diffuse expiratory wheezes and bilateral diminished bases. Will add Pulmicort nebs twice a day .Patient is on nasal cannula more awake and alert. Patient hemoglobin stable at 7.7. We'll repeat a.m. labs and chest x-ray - Past Medical Family Social History Past Med/Fam/Surg Hx: No changes since H&P Allergies: Allergies Ciprofloxacin [From Cipro] Allergy (Verified 11/27/16 20:03) Codeine Allergy (Verified 11/27/16 20:03) Nitrofurantoin [From Macrobid] Allergy (Verified 11/27/16 20:03) Sulfa Antibiotics Allergy (Verified 11/27/16 20:03) Sulfamethoxazole w/Trimethoprim [From Septra] Allergy (Verified 11/27/16 20:03) - Review of Systems ROS: No change since H&P - Vital Signs and I&O's Vital Signs: Temperature 98.3 F Pulse Rate [Left Brachial] 80 Pulse Rate [Right Brachial] 83 Pulse Rate [Apical] 118 Pulse Rate 101 Respiratory Rate 20 Blood Pressure [Right Calf] 95/56 Blood Pressure [Right Arm] 153/75 Blood Pressure [Left Arm] 151/70 O2 Sat by Pulse Oximetry 96 Intake and Output: Intake & Output 12/09/16 12/10/16 12/11/16 12/12/16 11:59 11:59 11:59 11:59 Intake Total 3365 4033 3659 Output Total 7605 31765 2350 Balance 1540 -77128 1309 - Physical Exam Oriented: Normal, Time, Person, Place Eyes: Normal. negative: Blurred Vision, Diplopia, Discharge, Pain, Redness, Photophobia Ear: Normal. negative: Swelling, Ecchymosis, Hemotypanum, Abrasion, Laceration Nose: Normal. negative: Injected, Discharge, Blood Throat: Normal. negative: Tonsillar Hypertrophy, Red, Exudate, Dry Respiratory: Generalized, Diminished Cardiovascular: Normal. negative: Murmur, Edema : Normal. negative: Dysuria, Hematuria, Frequency, Discharge, Bleeding, Auscultation: Bowel Sounds: Normal. negative: Bruit Tenderness: Normal Skin: Decreased Turgur, Wound (Sacral wounds: Superior to sacral, Sacral area, and Inferior to sacral) Musculoskeletal: Instability Psychiatric: Normal Mood Description: Calm Affect: Normal Speech Pattern: Clear, Appropriate - Laboratory and Diagnostics Result Diagrams: 12/11/16 04:26 12/11/16 04:26 Labs: 12/05/16 13:05 Blood Blood Culture - Final 12/05/16 13:20 Blood Blood Culture - Final 12/09/16 05:34 Sputum - Expectorated Sputum Sputum Culture - Final 12/09/16 05:34 Sputum - Expectorated Sputum - Final 11/29/16 14:52 Sacral Gram Stain - Final 11/29/16 14:52 Sacral Wound Culture - Final Citrobacter [facility] WBC 12.9 X10^3/uL (3.6-10.0) H 12/11/16 04:26 RBC 2.85 X10^6/uL (3.5-5.4) L 12/11/16 04:26 Hgb 7.7 g/dL (12.0-16.0) L 12/11/16 04:26 Hct 23.2 % (36.0-47.0) L 12/11/16 04:26 MCV 81.4 fL (80.0-100.0) 12/11/16 04:26 MCH 26.9 pg (27.0-34.0) L 12/11/16 04:26 MCHC 33.1 g/dL (33.0-35.0) 12/11/16 04:26 RDW 17.6 % (11.6-16.5) H 12/11/16 04:26 Plt Count 618 X10^3/uL (150.0-450.0) H 12/11/16 04:26 Plt Count Comment Increased (ADEQUATE) A 12/11/16 04:26 MPV 8.4 fL (7.4-11.0) 12/11/16 04:26 Neut % 83.1 % (42.0-75.0) H 12/11/16 04:26 Lymph % 9.6 % (21.0-51.0) L 12/11/16 04:26 [place] % 7.1 % (0.0-13.0) 12/11/16 04:26 Eos % 0.0 % (0.9-2.9) L 12/11/16 04:26 Baso % 0.2 % (0.2-1.0) 12/11/16 04:26 Neut # 10.8 x10^3/uL (2.2-4.8) H 12/11/16 04:26 Lymph # 1.2 X10^3/uL (1.3-2.9) L 12/11/16 04:26 [place] # 0.9 x10^3/uL (0.3-0.8) H 12/11/16 04:26 Eos # 0.0 x10^3/uL (0.0-0.2) 12/11/16 04:26 Baso # 0.0 X10^3/uL (0.0-0.1) 12/11/16 04:26 Absolute Nucleated RBC 0.0 /100WBC 12/11/16 04:26 Total Counted 100 12/10/16 04:00 Neutrophils % (Manual) 91 % (39-76) H 12/10/16 04:00 Lymphocytes % (Manual) 7 % (13-43) L 12/10/16 04:00 Monocytes % (Manual) 2 % (4-9) L 12/10/16 04:00 Nucleated RBCs Cancelled 12/06/16 04:10 Atypical Lymphocytes Cancelled 12/06/16 04:10 Blast Cells Cancelled 12/06/16 04:10 Smudge Cells Cancelled 12/06/16 04:10 Toxic Granulation Cancelled 12/06/16 04:10 Dohle Bodies Cancelled 12/06/16 04:10 Ryan Rods Cancelled 12/06/16 04:10 Plt Clumps, EDTA Cancelled 12/06/16 04:10 Giant Platelets Cancelled 12/06/16 04:10 Plt Morphology Comment Normal (NORMAL) 12/11/16 04:26 RBC Morphology Abnormal (NORMAL) A 12/11/16 04:26 Dimorphic RBCs Cancelled 12/06/16 04:10 Polychromasia Cancelled 12/06/16 04:10 Hypochromasia Slight A 12/11/16 04:26 Poikilocytosis Slight A 12/01/16 07:00 Basophilic Stippling Cancelled 12/06/16 04:10 Anisocytosis 1+ A 12/09/16 03:55 Microcytosis Slight A 12/07/16 04:20 Macrocytosis Cancelled 12/06/16 04:10 Spherocytes Cancelled 12/06/16 04:10 Pappenheimer Bodies Cancelled 12/06/16 04:10 Sickle Cells Cancelled 12/06/16 04:10 Target Cells Cancelled 12/06/16 04:10 Tear Drop Cells Cancelled 12/06/16 04:10 Ovalocytes Cancelled 12/06/16 04:10 Stomatocytes Cancelled 12/06/16 04:10 Helmet Cells Cancelled 12/06/16 04:10 James-[place] Bodies Cancelled 12/06/16 04:10 [place] Rings Cancelled 12/06/16 04:10 Gilbert Cells Cancelled 12/06/16 04:10 Crenated Cell Cancelled 12/06/16 04:10 Acanthocytes (Spur) Cancelled 12/06/16 04:10 Rouleaux Cancelled 12/06/16 04:10 Schistocytes Cancelled 12/06/16 04:10 INR Target Range - 11/28/16 05:25 INR 1.29 (0.8-1.3) 11/28/16 05:25 PTT 27.0 SECONDS (22.9-36.5) 11/28/16 05:25 PTT Comment - 11/28/16 05:25 Sodium 142 mmol/L (136-145) 12/11/16 04:26 Corrected Sodium 143 mmol/L (136-145) 12/11/16 04:26 Potassium 4.0 mmol/L (3.5-5.1) 12/11/16 04:26 Chloride 104 mmol/L (98-107) 12/11/16 04:26 Carbon Dioxide 34.0 mmol/L (21-32) H 12/11/16 04:26 BUN 32 mg/dL (7-18) H 12/11/16 04:26 Creatinine 0.52 mg/dL (0.55-1.02) L 12/11/16 04:26 Est GFR (MDRD) Af Amer > 60 (>60) 12/11/16 04:26 Est GFR (MDRD) Non-Af > 60 (>60) 12/11/16 04:26 Glucose 127 mg/dL (65-99) H 12/11/16 04:26 Lactic Acid 1.3 mmol/L (0.4-2.0) 11/28/16 09:10 Calcium 9.6 mg/dL (8.5-10.1) 12/11/16 04:26 Corrected Calcium TNP 12/11/16 04:26 Phosphorus 0.5 mg/dL (2.6-4.7) L 12/01/16 07:00 Magnesium 2.2 mg/dL (1.7-2.9) 12/04/16 03:55 Total Bilirubin 0.50 mg/dL (0.2-1.0) 12/11/16 04:26 AST 34 Units/L (15-37) 12/11/16 04:26 ALT 83 Units/L (12-78) H 12/11/16 04:26 Alkaline Phosphatase 95 Units/L (46-116) 12/11/16 04:26 Lactate Dehydrogenase 184 Units/L (81-234) 11/27/16 20:05 Creatine Kinase 73 Units/L (26-192) 11/28/16 09:10 CK-MB (CK-2) 1.4 ng/mL (0-4.0) 11/28/16 09:10 CK/CKMB % Calc 1.9 % (<4) 11/28/16 09:10 Troponin I 0.09 ng/mL (0-1.5) 11/28/16 09:10 B-Natriuretic Peptide 1890 pg/mL (0-79) H* 12/07/16 04:20 Total Protein 6.6 g/dL (6.4-8.2) 12/11/16 04:26 Albumin 3.8 g/dL (3.4-5.0) 12/11/16 04:26 Globulin 2.8 g/dL (2.5-4.5) 12/11/16 04:26 Albumin/Globulin Ratio 1.4 Ratio (1.1-2.1) 12/11/16 04:26 Triglycerides 81 mg/dL (0-150) 12/01/16 07:00 Amylase 12 Units/L (25-115) L 11/28/16 05:25 Lipase 69 Units/L (73-393) L 11/27/16 20:40 Cortisol 19.2 ug/dL 11/27/16 20:40 Specimen Type Clean catch urine 12/05/16 11:09 Urine Color Yellow (YELLOW) 12/05/16 11:09 Urine Appearance Hazy (CLEAR) 12/05/16 11:09 Urine pH 6.5 (5.0 - 8.0) 12/05/16 11:09 Ur Specific [place] 1.010 (1.000-1.030) 12/05/16 11:09 Urine Protein 2+ (NEGATIVE) 12/05/16 11:09 Urine Glucose (UA) Negative (NEGATIVE) 12/05/16 11:09 Urine Ketones Negative (NEGATIVE) 12/05/16 11:09 Urine Occult Blood 3+ (NEGATIVE) 12/05/16 11:09 Urine Nitrite Negative (NEGATIVE) 12/05/16 11:09 Urine Bilirubin Negative (NEGATIVE) 12/05/16 11:09 Urine Urobilinogen Normal (NORMAL) 12/05/16 11:09 Ur Leukocyte Esterase Negative (NEGATIVE) 12/05/16 11:09 Urine RBC 0-3 /HPF (NEGATIVE) 12/05/16 11:09 Urine WBC 3-5 /HPF (NEGATIVE) 12/05/16 11:09 Ur Squamous Epith Cells Rare /HPF (NEGATIVE) 12/05/16 11:09 Triple Phos Crystals Few /HPF (NEGATIVE) 12/05/16 11:09 Amorphous Sediment Trace /HPF (NEGATIVE) 11/27/16 21:00 Urine Bacteria Trace /HPF (NEGATIVE) 12/05/16 11:09 Ur Culture Indicated? No/not indicated 12/05/16 11:09 Stool Description Fob tube 12/06/16 17:03 Stl Occult Blood (IFOB) Positive (NEGATIVE) A 12/06/16 17:03 Blood Type A NEGATIVE 12/02/16 10:46 Antibody Screen Negative 12/02/16 10:46 Crossmatch See Detail 12/02/16 10:46 - Plan (1) CHF (congestive heart failure) Status: Acute Qualifiers: Congestive heart failure type: diastolic Congestive heart failure chronicity: acute Qualified Code(s): I50.31 - Acute diastolic (congestive) heart failure Plan: CONTINUE SUPPLEMENTAL OXYGEN, MONITOR CHEST XRAY. (2) Bronchopneumonia Status: Acute Plan: CONTINUE IV ATBX, RESP CARE (3) Citrobacter infection Status: Acute Plan: CONTINUE IV INVANZ, WOUND CARE, MONITOR VITAL SIGNS, LABS. (4) Hypoalbuminemia due to protein-calorie malnutrition Status: Acute Plan: CONTINUE ALBUMIN, TPN, CONTINUE TO MONITOR LABS (5) UTI (urinary tract infection) Status: Acute Qualifiers: Urinary tract infection type: acute cystitis Hematuria presence: with hematuria Indwelling urinary catheter type: I Encounter type: E Qualified Code(s): N30.01 - Acute cystitis with hematuria Plan: CONTINUE INVANZ, IVF, MONITOR LABS (6) CAD (coronary artery disease) Status: Chronic Qualifiers: Coronary Disease-Associated Artery/Lesion type: [place] artery [place] vs. transplanted heart: [place] heart Associated angina: without angina Qualified Code(s): I25.10 - Atherosclerotic heart disease of [place] coronary artery without angina pectoris Plan: CONTINUE TO MONITOR (7) GERD (gastroesophageal reflux disease) Status: Chronic Qualifiers: Esophagitis presence: esophagitis presence not specified Qualified Code(s) : K21.9 - Gastro-esophageal reflux disease without esophagitis Plan: CONTINUE TO MONITOR (8) Hyperlipidemia Status: Chronic Qualifiers: Hyperlipidemia type: mixed hyperlipidemia Qualified Code(s): E78.2 - Mixed hyperlipidemia Plan: CONTINUE TO MONITOR (9) Hypertension Status: Chronic Qualifiers: Hypertension type: essential hypertension (10) Muscle weakness Status: Chronic Plan: PT
[2016-12-11] MEDS: NORCO 10/325 TAB PO PRN (13:40)
[2016-12-11] MEDS: PULMICORT NEB TX 0.5 MG NEB SCH (20:27)
[2016-12-11] MEDS: SNACK - Diabetic Appropriate PO SCH (20:30)
[2016-12-11] MEDS: LIPOSYN III 20% 100ML 100 ML IV SCH (21:12)
[2016-12-11] MEDS: LIPITOR TAB 40 MG PO SCH (21:14)
[2016-12-11] MEDS: ZANAFLEX PO SCH (21:14)
[2016-12-11] MEDS: NEURONTIN CAP 300 MG PO SCH (21:14)
[2016-12-12] MEDS: TESSALON PERLES PO SCH ×3 (05:43→23:02)
[2016-12-12] MEDS: VOLTAREN 1 % GEL MULTI DOSE TUBE TOP SCH ×3 (05:43→23:02)
--- NOTE | 2016-12-12 06:39 | RAD ---
HISTORY: Follow up pneumonia, cough, congestive Study: Chest one view Comparison: December 10, 2016 and multiple priors Findings: The heart is upper limits normal in size. Mild pulmonary venous congestion is present. Bilateral int erstitial lung changes with some superimposed patchy alveolar filling bilaterally is unchanged. No p leural effusions are identified. The bony thorax is unremarkable with the exception of bilateral chr onic rotator cuff disease. IMPRESSION: No significant change from the prior examination Reported By:
[2016-12-12 07:05] LABS: BASOPHILS % (AUTO) 0.3 % (0.2-1.0); EOSINOPHILS # (AUTO) 0.1 x10^3/uL (0.0-0.2); EOSINOPHILS % (AUTO) 0.8 % (0.9-2.9); HEMATOCRIT 24.7 % (36.0-47.0); HEMOGLOBIN 8.1 g/dL (12.0-16.0); LYMPHOCYTES # (AUTO) 1.3 X10^3/uL (1.3-2.9); LYMPHOCYTES % (AUTO) 7.7 % (21.0-51.0); MEAN CORPUSCULAR HEMOGLOBIN 26.6 pg (27.0-34.0); MEAN CORPUSCULAR HGB CONC 32.8 g/dL (33.0-35.0); MEAN CORPUSCULAR VOLUME 81.1 fL (80.0-100.0); MEAN PLATELET VOLUME 8.1 fL (7.4-11.0); MONOCYTES # (AUTO) 0.8 x10^3/uL (0.3-0.8); MONOCYTES % (AUTO) 4.8 % (0.0-13.0); NEUTROPHILS # (AUTO) 14.3 x10^3/uL (2.2-4.8); NEUTROPHILS % (AUTO) 86.4 % (42.0-75.0); PLATELET COUNT 677 X10^3/uL (150.0-450.0); RED BLOOD COUNT 3.04 X10^6/uL (3.5-5.4); RED CELL DISTRIBUTION WIDTH 18.2 % (11.6-16.5); WHITE BLOOD COUNT 16.5 X10^3/uL (3.6-10.0)
[2016-12-12 07:08] LABS: ALANINE AMINOTRANSFERASE 56 Units/L (12-78); ALBUMIN 3.9 g/dL (3.4-5.0); ALKALINE PHOSPHATASE 82 Units/L (46-116); ASPARTATE AMINO TRANSFERASE 18 Units/L (15-37); BLOOD UREA NITROGEN 28 mg/dL (7-18); CALCIUM 9.6 mg/dL (8.5-10.1); CARBON DIOXIDE 31.7 mmol/L (21-32); CHLORIDE 102 mmol/L (98-107); COR NA(FOR HYPERGLY) 141 mmol/L (136-145); CREATININE 0.55 mg/dL (0.55-1.02); GLUCOSE 124 mg/dL (65-99); SODIUM 140 mmol/L (136-145); TOTAL PROTEIN 6.7 g/dL (6.4-8.2); eGFR BLACK RACES > 60 (>60); eGFR NON BLACK RACES > 60 (>60)
[2016-12-12 07:11] LABS: PLATELET MORPHOLOGY COMMENT NORMAL (NORMAL)
[2016-12-12] MEDS: PULMICORT NEB TX 0.5 MG NEB SCH ×2 (08:15→20:22)
[2016-12-12] MEDS: DUONEB 0.5 MG/3 MG NEB SCH ×4 (08:15→20:22)
[2016-12-12] MEDS: COLACE CAP 100 MG PO SCH ×2 (08:36→20:36)
[2016-12-12] MEDS: PROTONIX TAB 40 MG PO SCH (08:36)
[2016-12-12] MEDS: ZESTORETIC 10/ 12.5MG PO SCH (08:36)
[2016-12-12] MEDS: MEGACE PO SCH ×2 (08:36→20:37)
[2016-12-12] MEDS: ASPIRIN 81 MG CHEWTAB PO SCH (08:36)
[2016-12-12] MEDS: LOVENOX INJ 30 MG SYR SC SCH ×2 (08:37→20:39)
[2016-12-12] MEDS: PLAVIX PO SCH (08:37)
[2016-12-12] MEDS: MILK OF MAGNESIA PO SCH ×2 (08:38→20:35)
[2016-12-12] MEDS: ULTRAM PO PRN (08:38)
[2016-12-12] MEDS: ALBUMIN HUMAN 25%- 100ML 100 ML IV SCH ×2 (08:38→20:35)
[2016-12-12] MEDS: MIRALAX POWDER (1 DOSE 17GM) PO SCH (08:38)
[2016-12-12] MEDS: INVANZ INJ 1 GM VIAL 1 GM in NS 50 ML IV + SPIKE MINIBAG* 50 ML IV SCH (08:38)
[2016-12-12] MEDS: CLINIMIX 4.25 %/10 % 1,000 ML with MVI INJ (ADULT) 10 ML, TRACE ELEMENTS INJ 10 ML, TPN... IV SCH ×5 (10:16)
[2016-12-12] MEDS: ZOFRAN INJ 4 MG VIAL IVP PRN (14:14)
[2016-12-12] MEDS: TYLENOL 325 MG TAB PO PRN (14:28)
[2016-12-12] MEDS: LIPOSYN III 20% 100ML 100 ML IV SCH (20:36)
[2016-12-12] MEDS: NORCO 10/325 TAB PO PRN (20:36)
[2016-12-12] MEDS: NEURONTIN CAP 300 MG PO SCH (20:37)
[2016-12-12] MEDS: ZANAFLEX PO SCH (20:37)
[2016-12-12] MEDS: LIPITOR TAB 40 MG PO SCH (20:37)
[2016-12-12] MEDS: SNACK - Diabetic Appropriate PO SCH (21:03)
[2016-12-13] MEDS: CLINIMIX 4.25 %/10 % 1,000 ML with MVI INJ (ADULT) 10 ML, TRACE ELEMENTS INJ 10 ML, TPN... IV SCH ×10 (00:54→11:35)
[2016-12-13] MEDS: TESSALON PERLES PO SCH ×3 (05:45→21:10)
[2016-12-13] MEDS: VOLTAREN 1 % GEL MULTI DOSE TUBE TOP SCH ×3 (05:52→21:19)
[2016-12-13 06:11] LABS: BASOPHILS % (AUTO) 0.2 % (0.2-1.0); EOSINOPHILS # (AUTO) 0.3 x10^3/uL (0.0-0.2); EOSINOPHILS % (AUTO) 1.6 % (0.9-2.9); HEMATOCRIT 24.9 % (36.0-47.0); LYMPHOCYTES # (AUTO) 1.2 X10^3/uL (1.3-2.9); LYMPHOCYTES % (AUTO) 6.5 % (21.0-51.0); MEAN CORPUSCULAR HEMOGLOBIN 26.5 pg (27.0-34.0); MEAN CORPUSCULAR HGB CONC 32.3 g/dL (33.0-35.0); MEAN CORPUSCULAR VOLUME 81.9 fL (80.0-100.0); MEAN PLATELET VOLUME 8.3 fL (7.4-11.0); MONOCYTES # (AUTO) 0.5 x10^3/uL (0.3-0.8); MONOCYTES % (AUTO) 2.6 % (0.0-13.0); NEUTROPHILS # (AUTO) 16.7 x10^3/uL (2.2-4.8); NEUTROPHILS % (AUTO) 89.1 % (42.0-75.0); PLATELET COUNT 576 X10^3/uL (150.0-450.0); RED BLOOD COUNT 3.04 X10^6/uL (3.5-5.4); RED CELL DISTRIBUTION WIDTH 18.4 % (11.6-16.5); WHITE BLOOD COUNT 18.8 X10^3/uL (3.6-10.0)
--- NOTE | 2016-12-13 06:20 | RAD ---
HISTORY: Cough Study: Chest one view Comparison: December 12, 2016 Findings: The heart is upper limits normal in size. No definite congestive heart failure is present on today's examination. Diffuse bilateral interstitial lung changes are again identified with some areas of pa tchy alveolar filling not significantly changed from the prior examination. No pleural effusions are identified. The bony thorax is unremarkable with the exception of bilateral chronic rotator cuff di sease. IMPRESSION: No change diffuse bilateral interstitial lung disease with some areas of patchy alveolar filling Reported By:
[2016-12-13 06:29] LABS: ALANINE AMINOTRANSFERASE 44 Units/L (12-78); ALKALINE PHOSPHATASE 72 Units/L (46-116); ASPARTATE AMINO TRANSFERASE 16 Units/L (15-37); BLOOD UREA NITROGEN 25 mg/dL (7-18); CALCIUM 9.4 mg/dL (8.5-10.1); CARBON DIOXIDE 29.3 mmol/L (21-32); CHLORIDE 102 mmol/L (98-107); CREATININE 0.57 mg/dL (0.55-1.02); GLUCOSE 84 mg/dL (65-99); SODIUM 139 mmol/L (136-145); TOTAL PROTEIN 6.9 g/dL (6.4-8.2); eGFR BLACK RACES > 60 (>60); eGFR NON BLACK RACES > 60 (>60)
[2016-12-13] MEDS: DUONEB 0.5 MG/3 MG NEB SCH ×4 (08:55→20:00)
[2016-12-13] MEDS: PULMICORT NEB TX 0.5 MG NEB SCH ×2 (08:56→20:00)
[2016-12-13] MEDS: NORCO 10/325 TAB PO PRN ×2 (09:29→21:35)
[2016-12-13] MEDS: INVANZ INJ 1 GM VIAL 1 GM in NS 50 ML IV + SPIKE MINIBAG* 50 ML IV SCH (09:37)
[2016-12-13] MEDS: ALBUMIN HUMAN 25%- 100ML 100 ML IV SCH ×2 (09:37→21:07)
[2016-12-13] MEDS: PLAVIX PO SCH (09:38)
[2016-12-13] MEDS: LOVENOX INJ 30 MG SYR SC SCH ×2 (09:38→21:48)
[2016-12-13] MEDS: ZESTORETIC 10/ 12.5MG PO SCH (09:39)
[2016-12-13] MEDS: MEGACE PO SCH ×2 (09:39→21:11)
[2016-12-13] MEDS: PROTONIX TAB 40 MG PO SCH (09:39)
[2016-12-13] MEDS: COLACE CAP 100 MG PO SCH ×2 (09:39→21:10)
[2016-12-13] MEDS: MIRALAX POWDER (1 DOSE 17GM) PO SCH (09:40)
[2016-12-13] MEDS: ASPIRIN 81 MG CHEWTAB PO SCH (09:40)
[2016-12-13] MEDS: MILK OF MAGNESIA PO SCH ×2 (09:40→21:10)
--- NOTE | 2016-12-13 18:22 | PCM.PROG ---
Progress Note - Progress Note for Day of Date: 12/12/16 - Subjective Subjective: Patient is a 66-year-old white female, patient of Dr. Coronel, admitted on 11/28 with multiple exacerbations of chronic illnesses including respiratory distress/COPD, UTI and a sacral decubitus that was infected. Patient has been on IV antibiotics for infections, plan to continue, chest x- ray this morning revealed improving pulmonary edema and filtrate improvement. Patient continues to have diffuse expiratory wheezes and bilateral diminished bases. On Pulmicort nebs twice a day .Patient is on nasal cannula more awake and alert. Patient hemoglobin stable .patient is chronically ill, discussed shelter placement with patient and family, bed placement pending. We'll repeat a.m. labs and chest x-ray - Past Medical Family Social History Past Med/Fam/Surg Hx: No changes since H&P Allergies: Allergies Ciprofloxacin [From Cipro] Allergy (Verified 11/27/16 20:03) Codeine Allergy (Verified 11/27/16 20:03) Nitrofurantoin [From Macrobid] Allergy (Verified 11/27/16 20:03) Sulfa Antibiotics Allergy (Verified 11/27/16 20:03) Sulfamethoxazole w/Trimethoprim [From Septra] Allergy (Verified 11/27/16 20:03) - Review of Systems ROS: No change since H&P - Vital Signs and I&O's Vital Signs: Temperature 99 F Pulse Rate [Left Brachial] 98 Pulse Rate [Right Brachial] 106 Pulse Rate [Apical] 118 Pulse Rate 111 Respiratory Rate 20 Blood Pressure [Right Calf] 95/56 Blood Pressure [Right Arm] 107/61 Blood Pressure [Left Arm] 135/61 O2 Sat by Pulse Oximetry 96 Intake and Output: Intake & Output 12/11/16 12/12/16 12/13/16 12/14/16 11:59 11:59 11:59 11:59 Intake Total 4479 4054 2875 1240 Output Total 2350 4375 1200 800 Balance 2129 -321 1675 440 - Physical Exam Oriented: Normal, Time, Person, Place Eyes: Normal. negative: Blurred Vision, Diplopia, Discharge, Pain, Redness, Photophobia Ear: Normal. negative: Swelling, Ecchymosis, Hemotypanum, Abrasion, Laceration Nose: Normal. negative: Injected, Discharge, Blood Throat: Normal. negative: Tonsillar Hypertrophy, Red, Exudate, Dry Respiratory: Generalized, Diminished Cardiovascular: Normal. negative: Murmur, Edema : Normal. negative: Dysuria, Hematuria, Frequency, Discharge, Bleeding, Auscultation: Bowel Sounds: Normal. negative: Bruit Tenderness: Normal Skin: Decreased Turgur, Wound (Sacral wounds: Superior to sacral, Sacral area, and Inferior to sacral) Musculoskeletal: Instability Psychiatric: Normal Mood Description: Calm Affect: Normal Speech Pattern: Clear, Appropriate - Laboratory and Diagnostics Result Diagrams: 12/13/16 03:35 12/13/16 03:35 Labs: 12/05/16 13:05 Blood Blood Culture - Final 12/05/16 13:20 Blood Blood Culture - Final 12/09/16 05:34 Sputum - Expectorated Sputum Sputum Culture - Final 12/09/16 05:34 Sputum - Expectorated Sputum - Final 11/29/16 14:52 Sacral Gram Stain - Final 11/29/16 14:52 Sacral Wound Culture - Final Citrobacter Freundii [facility] WBC 18.8 X10^3/uL (3.6-10.0) H 12/13/16 03:35 RBC 3.04 X10^6/uL (3.5-5.4) L 12/13/16 03:35 Hgb 8.0 g/dL (12.0-16.0) L 12/13/16 03:35 Hct 24.9 % (36.0-47.0) L 12/13/16 03:35 MCV 81.9 fL (80.0-100.0) 12/13/16 03:35 MCH 26.5 pg (27.0-34.0) L 12/13/16 03:35 MCHC 32.3 g/dL (33.0-35.0) L 12/13/16 03:35 RDW 18.4 % (11.6-16.5) H 12/13/16 03:35 Plt Count 576 X10^3/uL (150.0-450.0) H 12/13/16 03:35 Plt Count Comment Increased (ADEQUATE) A 12/12/16 06:40 MPV 8.3 fL (7.4-11.0) 12/13/16 03:35 Neut % 89.1 % (42.0-75.0) H 12/13/16 03:35 Lymph % 6.5 % (21.0-51.0) L 12/13/16 03:35 [place] % 2.6 % (0.0-13.0) 12/13/16 03:35 Eos % 1.6 % (0.9-2.9) 12/13/16 03:35 Baso % 0.2 % (0.2-1.0) 12/13/16 03:35 Neut # 16.7 x10^3/uL (2.2-4.8) H 12/13/16 03:35 Lymph # 1.2 X10^3/uL (1.3-2.9) L 12/13/16 03:35 [place] # 0.5 x10^3/uL (0.3-0.8) 12/13/16 03:35 Eos # 0.3 x10^3/uL (0.0-0.2) H 12/13/16 03:35 Baso # 0.0 X10^3/uL (0.0-0.1) 12/13/16 03:35 Absolute Nucleated RBC 0.0 /100WBC 12/13/16 03:35 Total Counted 100 12/10/16 04:00 Neutrophils % (Manual) 91 % (39-76) H 12/10/16 04:00 Lymphocytes % (Manual) 7 % (13-43) L 12/10/16 04:00 Monocytes % (Manual) 2 % (4-9) L 12/10/16 04:00 Nucleated RBCs Cancelled 12/06/16 04:10 Atypical Lymphocytes Cancelled 12/06/16 04:10 Blast Cells Cancelled 12/06/16 04:10 Smudge Cells Cancelled 12/06/16 04:10 Toxic Granulation Cancelled 12/06/16 04:10 Dohle Bodies Cancelled 12/06/16 04:10 Ryan Rods Cancelled 12/06/16 04:10 Plt Clumps, EDTA Cancelled 12/06/16 04:10 Giant Platelets Cancelled 12/06/16 04:10 Plt Morphology Comment Normal (NORMAL) 12/12/16 06:40 RBC Morphology Normal (NORMAL) 12/12/16 06:40 Dimorphic RBCs Cancelled 12/06/16 04:10 Polychromasia Cancelled 12/06/16 04:10 Hypochromasia Slight A 12/11/16 04:26 Poikilocytosis Slight A 12/01/16 07:00 Basophilic Stippling Cancelled 12/06/16 04:10 Anisocytosis 1+ A 12/09/16 03:55 Microcytosis Slight A 12/07/16 04:20 Macrocytosis Cancelled 12/06/16 04:10 Spherocytes Cancelled 12/06/16 04:10 Pappenheimer Bodies Cancelled 12/06/16 04:10 Sickle Cells Cancelled 12/06/16 04:10 Target Cells Cancelled 12/06/16 04:10 Tear Drop Cells Cancelled 12/06/16 04:10 Ovalocytes Cancelled 12/06/16 04:10 Stomatocytes Cancelled 12/06/16 04:10 Helmet Cells Cancelled 12/06/16 04:10 [place] Bodies Cancelled 12/06/16 04:10 [place] Rings Cancelled 12/06/16 04:10 [place] Cells Cancelled 12/06/16 04:10 Crenated Cell Cancelled 12/06/16 04:10 Acanthocytes (Spur) Cancelled 12/06/16 04:10 Rouleaux Cancelled 12/06/16 04:10 Schistocytes Cancelled 12/06/16 04:10 INR Target Range - 11/28/16 05:25 INR 1.29 (0.8-1.3) 11/28/16 05:25 PTT 27.0 SECONDS (22.9-36.5) 11/28/16 05:25 PTT Comment - 11/28/16 05:25 Sodium 139 mmol/L (136-145) 12/13/16 03:35 Corrected Sodium TNP 12/13/16 03:35 Potassium 4.0 mmol/L (3.5-5.1) 12/13/16 03:35 Chloride 102 mmol/L (98-107) 12/13/16 03:35 Carbon Dioxide 29.3 mmol/L (21-32) 12/13/16 03:35 BUN 25 mg/dL (7-18) H 12/13/16 03:35 Creatinine 0.57 mg/dL (0.55-1.02) 12/13/16 03:35 Est GFR (MDRD) Af Amer > 60 (>60) 12/13/16 03:35 Est GFR (MDRD) Non-Af > 60 (>60) 12/13/16 03:35 Glucose 84 mg/dL (65-99) 12/13/16 03:35 Lactic Acid 1.3 mmol/L (0.4-2.0) 11/28/16 09:10 Calcium 9.4 mg/dL (8.5-10.1) 12/13/16 03:35 Corrected Calcium TNP 12/13/16 03:35 Phosphorus 0.5 mg/dL (2.6-4.7) L 12/01/16 07:00 Magnesium 2.2 mg/dL (1.7-2.9) 12/04/16 03:55 Total Bilirubin 0.90 mg/dL (0.2-1.0) 12/13/16 03:35 AST 16 Units/L (15-37) 12/13/16 03:35 ALT 44 Units/L (12-78) 12/13/16 03:35 Alkaline Phosphatase 72 Units/L (46-116) 12/13/16 03:35 Lactate Dehydrogenase 184 Units/L (81-234) 11/27/16 20:05 Creatine Kinase 73 Units/L (26-192) 11/28/16 09:10 CK-MB (CK-2) 1.4 ng/mL (0-4.0) 11/28/16 09:10 CK/CKMB % Calc 1.9 % (<4) 11/28/16 09:10 Troponin I 0.09 ng/mL (0-1.5) 11/28/16 09:10 B-Natriuretic Peptide 1890 pg/mL (0-79) H* 12/07/16 04:20 Total Protein 6.9 g/dL (6.4-8.2) 12/13/16 03:35 Albumin 4.0 g/dL (3.4-5.0) 12/13/16 03:35 Globulin 2.9 g/dL (2.5-4.5) 12/13/16 03:35 Albumin/Globulin Ratio 1.4 Ratio (1.1-2.1) 12/13/16 03:35 Triglycerides 81 mg/dL (0-150) 12/01/16 07:00 Amylase 12 Units/L (25-115) L 11/28/16 05:25 Lipase 69 Units/L (73-393) L 11/27/16 20:40 Cortisol 19.2 ug/dL 11/27/16 20:40 Specimen Type Clean catch urine 12/05/16 11:09 Urine Color Yellow (YELLOW) 12/05/16 11:09 Urine Appearance Hazy (CLEAR) 12/05/16 11:09 Urine pH 6.5 (5.0 - 8.0) 12/05/16 11:09 Ur Specific [place] 1.010 (1.000-1.030) 12/05/16 11:09 Urine Protein 2+ (NEGATIVE) 12/05/16 11:09 Urine Glucose (UA) Negative (NEGATIVE) 12/05/16 11:09 Urine Ketones Negative (NEGATIVE) 12/05/16 11:09 Urine Occult Blood 3+ (NEGATIVE) 12/05/16 11:09 Urine Nitrite Negative (NEGATIVE) 12/05/16 11:09 Urine Bilirubin Negative (NEGATIVE) 12/05/16 11:09 Urine Urobilinogen Normal (NORMAL) 12/05/16 11:09 Ur Leukocyte Esterase Negative (NEGATIVE) 12/05/16 11:09 Urine RBC 0-3 /HPF (NEGATIVE) 12/05/16 11:09 Urine WBC 3-5 /HPF (NEGATIVE) 12/05/16 11:09 Ur Squamous Epith Cells Rare /HPF (NEGATIVE) 12/05/16 11:09 Triple Phos Crystals Few /HPF (NEGATIVE) 12/05/16 11:09 Amorphous Sediment Trace /HPF (NEGATIVE) 11/27/16 21:00 Urine Bacteria Trace /HPF (NEGATIVE) 12/05/16 11:09 Ur Culture Indicated? No/not indicated 12/05/16 11:09 Stool Description Fob tube 12/06/16 17:03 Stl Occult Blood (IFOB) Positive (NEGATIVE) A 12/06/16 17:03 Blood Type A NEGATIVE 12/02/16 10:46 Antibody Screen Negative 12/02/16 10:46 Crossmatch See Detail 12/02/16 10:46 - Plan (1) CHF (congestive heart failure) Status: Acute Qualifiers: Congestive heart failure type: diastolic Congestive heart failure chronicity: acute Qualified Code(s): I50.31 - Acute diastolic (congestive) heart failure Plan: CONTINUE SUPPLEMENTAL OXYGEN, MONITOR CHEST XRAY. (2) Bronchopneumonia Status: Acute Plan: CONTINUE IV ATBX, RESP CARE (3) Citrobacter infection Status: Acute Plan: CONTINUE IV INVANZ, WOUND CARE, MONITOR VITAL SIGNS, LABS. (4) Hypoalbuminemia due to protein-calorie malnutrition Status: Acute Plan: CONTINUE ALBUMIN, TPN, CONTINUE TO MONITOR LABS (5) UTI (urinary tract infection) Status: Acute Qualifiers: Urinary tract infection type: acute cystitis Hematuria presence: with hematuria Indwelling urinary catheter type: I Encounter type: E Qualified Code(s): N30.01 - Acute cystitis with hematuria Plan: CONTINUE INVANZ, IVF, MONITOR LABS (6) CAD (coronary artery disease) Status: Chronic Qualifiers: Coronary Disease-Associated Artery/Lesion type: [place] artery [place] vs. transplanted heart: [place] heart Associated angina: without angina Qualified Code(s): I25.10 - Atherosclerotic heart disease of [place] coronary artery without angina pectoris Plan: CONTINUE TO MONITOR (7) GERD (gastroesophageal reflux disease) Status: Chronic Qualifiers: Esophagitis presence: esophagitis presence not specified Qualified Code(s) : K21.9 - Gastro-esophageal reflux disease without esophagitis Plan: CONTINUE TO MONITOR (8) Hyperlipidemia Status: Chronic Qualifiers: Hyperlipidemia type: mixed hyperlipidemia Qualified Code(s): E78.2 - Mixed hyperlipidemia Plan: CONTINUE TO MONITOR (9) Hypertension Status: Chronic Qualifiers: Hypertension type: essential hypertension (10) Muscle weakness Status: Chronic Plan: PT (11) Adult failure to thrive Status: Acute Plan: chronically ill patient, requires full assistance with ADLs, discussed shelter placement with patient and family. Case management consult. [facility] placement pending
--- NOTE | 2016-12-13 18:24 | PCM.PROG ---
Progress Note - Progress Note for Day of Date: 12/13/16 - Subjective Subjective: Patient is a 66-year-old white female, patient of Dr. Coronel, admitted on 11/28 with multiple exacerbations of chronic illnesses including respiratory distress/COPD, UTI and a sacral decubitus that was infected. Patient has been on IV antibiotics for infections, Patient continues to have diffuse expiratory wheezes and bilateral diminished bases. pt under care of Dr Cordon, pulmonolgist, recent biopsy. plan to obtain results. On Pulmicort nebs twice a day .Patient is on nasal cannula more awake and alert. Patient hemoglobin stable .patient is chronically ill, discussed snf placement with patient and family, bed placement pending. We'll repeat a.m. labs and chest x-ray - Past Medical Family Social History Past Med/Fam/Surg Hx: No changes since H&P Allergies: Allergies Ciprofloxacin [From Cipro] Allergy (Verified 11/27/16 20:03) Codeine Allergy (Verified 11/27/16 20:03) Nitrofurantoin [From Macrobid] Allergy (Verified 11/27/16 20:03) Sulfa Antibiotics Allergy (Verified 11/27/16 20:03) Sulfamethoxazole w/Trimethoprim [From Septra] Allergy (Verified 11/27/16 20:03) - Review of Systems ROS: No change since H&P - Vital Signs and I&O's Vital Signs: Temperature 99 F Pulse Rate [Left Brachial] 98 Pulse Rate [Right Brachial] 106 Pulse Rate [Apical] 118 Pulse Rate 111 Respiratory Rate 20 Blood Pressure [Right Calf] 95/56 Blood Pressure [Right Arm] 107/61 Blood Pressure [Left Arm] 135/61 O2 Sat by Pulse Oximetry 96 Intake and Output: Intake & Output 12/11/16 12/12/16 12/13/16 12/14/16 11:59 11:59 11:59 11:59 Intake Total 4479 4054 2875 1240 Output Total 2350 4375 1200 800 Balance 2129 -321 1675 440 - Physical Exam Oriented: Normal, Time, Person, Place Eyes: Normal. negative: Blurred Vision, Diplopia, Discharge, Pain, Redness, Photophobia Ear: Normal. negative: Swelling, Ecchymosis, Hemotypanum, Abrasion, Laceration Nose: Normal. negative: Injected, Discharge, Blood Throat: Normal. negative: Tonsillar Hypertrophy, Red, Exudate, Dry Respiratory: Generalized, Diminished Cardiovascular: Normal. negative: Murmur, Edema : Normal. negative: Dysuria, Hematuria, Frequency, Discharge, Bleeding, Auscultation: Bowel Sounds: Normal. negative: Bruit Tenderness: Normal Skin: Decreased Turgur, Wound (Sacral wounds: Superior to sacral, Sacral area, and Inferior to sacral) Musculoskeletal: Instability Psychiatric: Normal Mood Description: Calm Affect: Normal Speech Pattern: Clear, Appropriate - Laboratory and Diagnostics Result Diagrams: 12/13/16 03:35 12/13/16 03:35 Labs: 12/05/16 13:05 Blood Blood Culture - Final 12/05/16 13:20 Blood Blood Culture - Final 12/09/16 05:34 Sputum - Expectorated Sputum Sputum Culture - Final 12/09/16 05:34 Sputum - Expectorated Sputum - Final 11/29/16 14:52 Sacral Gram Stain - Final 11/29/16 14:52 Sacral Wound Culture - Final Citrobacter Freundii [facility] WBC 18.8 X10^3/uL (3.6-10.0) H 12/13/16 03:35 RBC 3.04 X10^6/uL (3.5-5.4) L 12/13/16 03:35 Hgb 8.0 g/dL (12.0-16.0) L 12/13/16 03:35 Hct 24.9 % (36.0-47.0) L 12/13/16 03:35 MCV 81.9 fL (80.0-100.0) 12/13/16 03:35 MCH 26.5 pg (27.0-34.0) L 12/13/16 03:35 MCHC 32.3 g/dL (33.0-35.0) L 12/13/16 03:35 RDW 18.4 % (11.6-16.5) H 12/13/16 03:35 Plt Count 576 X10^3/uL (150.0-450.0) H 12/13/16 03:35 Plt Count Comment Increased (ADEQUATE) A 12/12/16 06:40 MPV 8.3 fL (7.4-11.0) 12/13/16 03:35 Neut % 89.1 % (42.0-75.0) H 12/13/16 03:35 Lymph % 6.5 % (21.0-51.0) L 12/13/16 03:35 [place] % 2.6 % (0.0-13.0) 12/13/16 03:35 Eos % 1.6 % (0.9-2.9) 12/13/16 03:35 Baso % 0.2 % (0.2-1.0) 12/13/16 03:35 Neut # 16.7 x10^3/uL (2.2-4.8) H 12/13/16 03:35 Lymph # 1.2 X10^3/uL (1.3-2.9) L 12/13/16 03:35 [place] # 0.5 x10^3/uL (0.3-0.8) 12/13/16 03:35 Eos # 0.3 x10^3/uL (0.0-0.2) H 12/13/16 03:35 Baso # 0.0 X10^3/uL (0.0-0.1) 12/13/16 03:35 Absolute Nucleated RBC 0.0 /100WBC 12/13/16 03:35 Total Counted 100 12/10/16 04:00 Neutrophils % (Manual) 91 % (39-76) H 12/10/16 04:00 Lymphocytes % (Manual) 7 % (13-43) L 12/10/16 04:00 Monocytes % (Manual) 2 % (4-9) L 12/10/16 04:00 Nucleated RBCs Cancelled 12/06/16 04:10 Atypical Lymphocytes Cancelled 12/06/16 04:10 Blast Cells Cancelled 12/06/16 04:10 Smudge Cells Cancelled 12/06/16 04:10 Toxic Granulation Cancelled 12/06/16 04:10 Dohle Bodies Cancelled 12/06/16 04:10 Ryan Rods Cancelled 12/06/16 04:10 Plt Clumps, EDTA Cancelled 12/06/16 04:10 Giant Platelets Cancelled 12/06/16 04:10 Plt Morphology Comment Normal (NORMAL) 12/12/16 06:40 RBC Morphology Normal (NORMAL) 12/12/16 06:40 Dimorphic RBCs Cancelled 12/06/16 04:10 Polychromasia Cancelled 12/06/16 04:10 Hypochromasia Slight A 12/11/16 04:26 Poikilocytosis Slight A 12/01/16 07:00 Basophilic Stippling Cancelled 12/06/16 04:10 Anisocytosis 1+ A 12/09/16 03:55 Microcytosis Slight A 12/07/16 04:20 Macrocytosis Cancelled 12/06/16 04:10 Spherocytes Cancelled 12/06/16 04:10 Pappenheimer Bodies Cancelled 12/06/16 04:10 Sickle Cells Cancelled 12/06/16 04:10 Target Cells Cancelled 12/06/16 04:10 Tear Drop Cells Cancelled 12/06/16 04:10 Ovalocytes Cancelled 12/06/16 04:10 Stomatocytes Cancelled 12/06/16 04:10 Helmet Cells Cancelled 12/06/16 04:10 [place] Bodies Cancelled 12/06/16 04:10 [place] Rings Cancelled 12/06/16 04:10 [place] Cells Cancelled 12/06/16 04:10 Crenated Cell Cancelled 12/06/16 04:10 Acanthocytes (Spur) Cancelled 12/06/16 04:10 Rouleaux Cancelled 12/06/16 04:10 Schistocytes Cancelled 12/06/16 04:10 INR Target Range - 11/28/16 05:25 INR 1.29 (0.8-1.3) 11/28/16 05:25 PTT 27.0 SECONDS (22.9-36.5) 11/28/16 05:25 PTT Comment - 11/28/16 05:25 Sodium 139 mmol/L (136-145) 12/13/16 03:35 Corrected Sodium TNP 12/13/16 03:35 Potassium 4.0 mmol/L (3.5-5.1) 12/13/16 03:35 Chloride 102 mmol/L (98-107) 12/13/16 03:35 Carbon Dioxide 29.3 mmol/L (21-32) 12/13/16 03:35 BUN 25 mg/dL (7-18) H 12/13/16 03:35 Creatinine 0.57 mg/dL (0.55-1.02) 12/13/16 03:35 Est GFR (MDRD) Af Amer > 60 (>60) 12/13/16 03:35 Est GFR (MDRD) Non-Af > 60 (>60) 12/13/16 03:35 Glucose 84 mg/dL (65-99) 12/13/16 03:35 Lactic Acid 1.3 mmol/L (0.4-2.0) 11/28/16 09:10 Calcium 9.4 mg/dL (8.5-10.1) 12/13/16 03:35 Corrected Calcium TNP 12/13/16 03:35 Phosphorus 0.5 mg/dL (2.6-4.7) L 12/01/16 07:00 Magnesium 2.2 mg/dL (1.7-2.9) 12/04/16 03:55 Total Bilirubin 0.90 mg/dL (0.2-1.0) 12/13/16 03:35 AST 16 Units/L (15-37) 12/13/16 03:35 ALT 44 Units/L (12-78) 12/13/16 03:35 Alkaline Phosphatase 72 Units/L (46-116) 12/13/16 03:35 Lactate Dehydrogenase 184 Units/L (81-234) 11/27/16 20:05 Creatine Kinase 73 Units/L (26-192) 11/28/16 09:10 CK-MB (CK-2) 1.4 ng/mL (0-4.0) 11/28/16 09:10 CK/CKMB % Calc 1.9 % (<4) 11/28/16 09:10 Troponin I 0.09 ng/mL (0-1.5) 11/28/16 09:10 B-Natriuretic Peptide 1890 pg/mL (0-79) H* 12/07/16 04:20 Total Protein 6.9 g/dL (6.4-8.2) 12/13/16 03:35 Albumin 4.0 g/dL (3.4-5.0) 12/13/16 03:35 Globulin 2.9 g/dL (2.5-4.5) 12/13/16 03:35 Albumin/Globulin Ratio 1.4 Ratio (1.1-2.1) 12/13/16 03:35 Triglycerides 81 mg/dL (0-150) 12/01/16 07:00 Amylase 12 Units/L (25-115) L 11/28/16 05:25 Lipase 69 Units/L (73-393) L 11/27/16 20:40 Cortisol 19.2 ug/dL 11/27/16 20:40 Specimen Type Clean catch urine 12/05/16 11:09 Urine Color Yellow (YELLOW) 12/05/16 11:09 Urine Appearance Hazy (CLEAR) 12/05/16 11:09 Urine pH 6.5 (5.0 - 8.0) 12/05/16 11:09 Ur Specific [place] 1.010 (1.000-1.030) 12/05/16 11:09 Urine Protein 2+ (NEGATIVE) 12/05/16 11:09 Urine Glucose (UA) Negative (NEGATIVE) 12/05/16 11:09 Urine Ketones Negative (NEGATIVE) 12/05/16 11:09 Urine Occult Blood 3+ (NEGATIVE) 12/05/16 11:09 Urine Nitrite Negative (NEGATIVE) 12/05/16 11:09 Urine Bilirubin Negative (NEGATIVE) 12/05/16 11:09 Urine Urobilinogen Normal (NORMAL) 12/05/16 11:09 Ur Leukocyte Esterase Negative (NEGATIVE) 12/05/16 11:09 Urine RBC 0-3 /HPF (NEGATIVE) 12/05/16 11:09 Urine WBC 3-5 /HPF (NEGATIVE) 12/05/16 11:09 Ur Squamous Epith Cells Rare /HPF (NEGATIVE) 12/05/16 11:09 Triple Phos Crystals Few /HPF (NEGATIVE) 12/05/16 11:09 Amorphous Sediment Trace /HPF (NEGATIVE) 11/27/16 21:00 Urine Bacteria Trace /HPF (NEGATIVE) 12/05/16 11:09 Ur Culture Indicated? No/not indicated 12/05/16 11:09 Stool Description Fob tube 12/06/16 17:03 Stl Occult Blood (IFOB) Positive (NEGATIVE) A 12/06/16 17:03 Blood Type A NEGATIVE 12/02/16 10:46 Antibody Screen Negative 12/02/16 10:46 Crossmatch See Detail 12/02/16 10:46 - Plan (1) CHF (congestive heart failure) Status: Acute Qualifiers: Congestive heart failure type: diastolic Congestive heart failure chronicity: acute Qualified Code(s): I50.31 - Acute diastolic (congestive) heart failure Plan: CONTINUE SUPPLEMENTAL OXYGEN, MONITOR CHEST XRAY. (2) Bronchopneumonia Status: Acute Plan: CONTINUE IV ATBX, RESP CARE. chronic lung disease with pulmonary nodules , under the care of Dr. Kapadia die cast supervisor in [place]. Plan to obtain a second lung biopsy results. Repeat sputum culture. (3) Citrobacter infection Status: Acute Plan: CONTINUE IV INVANZ, WOUND CARE, MONITOR VITAL SIGNS, LABS. (4) Hypoalbuminemia due to protein-calorie malnutrition Status: Acute Plan: CONTINUE ALBUMIN, TPN, CONTINUE TO MONITOR LABS (5) UTI (urinary tract infection) Status: Acute Qualifiers: Urinary tract infection type: acute cystitis Hematuria presence: with hematuria Indwelling urinary catheter type: I Encounter type: E Qualified Code(s): N30.01 - Acute cystitis with hematuria Plan: CONTINUE INVANZ, IVF, MONITOR LABS (6) CAD (coronary artery disease) Status: Chronic Qualifiers: Coronary Disease-Associated Artery/Lesion type: [place] artery [place] vs. transplanted heart: [place] heart Associated angina: without angina Qualified Code(s): I25.10 - Atherosclerotic heart disease of [place] coronary artery without angina pectoris Plan: CONTINUE TO MONITOR (7) GERD (gastroesophageal reflux disease) Status: Chronic Qualifiers: Esophagitis presence: esophagitis presence not specified Qualified Code(s) : K21.9 - Gastro-esophageal reflux disease without esophagitis Plan: CONTINUE TO MONITOR (8) Hyperlipidemia Status: Chronic Qualifiers: Hyperlipidemia type: mixed hyperlipidemia Qualified Code(s): E78.2 - Mixed hyperlipidemia Plan: CONTINUE TO MONITOR (9) Hypertension Status: Chronic Qualifiers: Hypertension type: essential hypertension (10) Muscle weakness Status: Chronic Plan: PT (11) Adult failure to thrive Status: Acute Plan: chronically ill patient, requires full assistance with ADLs, discussed snf placement with patient and family. Case management consult. [facility] placement pending
[2016-12-13] MEDS ORDERED: SALINE 3% 15 ML NEB TX ONE (19:58)
[2016-12-13] MEDS ORDERED: SALINE 3% 15 ML NEB TX NEB ONE (20:00)
[2016-12-13] MEDS: LIPOSYN III 20% 100ML 100 ML IV SCH (21:06)
[2016-12-13] MEDS: LIPITOR TAB 40 MG PO SCH (21:10)
[2016-12-13] MEDS: ZANAFLEX PO SCH (21:11)
[2016-12-13] MEDS: NEURONTIN CAP 300 MG PO SCH (21:35)
[2016-12-13] MEDS: SNACK - Diabetic Appropriate PO SCH (21:49)
[2016-12-14] MEDS: CLINIMIX 4.25 %/10 % 1,000 ML with MVI INJ (ADULT) 10 ML, TRACE ELEMENTS INJ 10 ML, TPN... IV SCH ×5 (04:03)
[2016-12-14] MEDS: TESSALON PERLES PO SCH ×2 (05:28→13:05)
[2016-12-14] MEDS: VOLTAREN 1 % GEL MULTI DOSE TUBE TOP SCH (05:31)
[2016-12-14 05:33] LABS: BASOPHILS % (AUTO) 0.2 % (0.2-1.0); EOSINOPHILS # (AUTO) 0.2 x10^3/uL (0.0-0.2); EOSINOPHILS % (AUTO) 1.7 % (0.9-2.9); HEMATOCRIT 20.3 % (36.0-47.0); LYMPHOCYTES % (AUTO) 7.3 % (21.0-51.0); MEAN CORPUSCULAR HEMOGLOBIN 26.8 pg (27.0-34.0); MEAN CORPUSCULAR HGB CONC 32.7 g/dL (33.0-35.0); MEAN PLATELET VOLUME 8.4 fL (7.4-11.0); MONOCYTES # (AUTO) 0.4 x10^3/uL (0.3-0.8); MONOCYTES % (AUTO) 2.6 % (0.0-13.0); NEUTROPHILS # (AUTO) 11.9 x10^3/uL (2.2-4.8); NEUTROPHILS % (AUTO) 88.2 % (42.0-75.0); PLATELET COUNT 397 X10^3/uL (150.0-450.0); RED BLOOD COUNT 2.48 X10^6/uL (3.5-5.4); RED CELL DISTRIBUTION WIDTH 18.8 % (11.6-16.5); WHITE BLOOD COUNT 13.6 X10^3/uL (3.6-10.0)
[2016-12-14 05:35] LABS: HEMOGLOBIN 6.7 g/dL (12.0-16.0)
[2016-12-14 05:50] LABS: ALANINE AMINOTRANSFERASE 34 Units/L (12-78); ALBUMIN 3.8 g/dL (3.4-5.0); ALKALINE PHOSPHATASE 61 Units/L (46-116); ASPARTATE AMINO TRANSFERASE 16 Units/L (15-37); BLOOD UREA NITROGEN 32 mg/dL (7-18); CALCIUM 9.1 mg/dL (8.5-10.1); CARBON DIOXIDE 28.8 mmol/L (21-32); CHLORIDE 101 mmol/L (98-107); COR NA(FOR HYPERGLY) 140 mmol/L (136-145); CREATININE 0.74 mg/dL (0.55-1.02); GLUCOSE 122 mg/dL (65-99); SODIUM 139 mmol/L (136-145); TOTAL PROTEIN 6.7 g/dL (6.4-8.2); eGFR BLACK RACES > 60 (>60); eGFR NON BLACK RACES > 60 (>60)
--- NOTE | 2016-12-14 06:58 | RAD ---
AP chest Indication: Fever with shortness of breath. Comparison: 12/13/2016 Findings: There is increased interstitial opacities and peribronchial thickening within the left juliette tral lung. Bilateral increased interstitial opacities are otherwise unchanged from prior examination . Heart size is within normal limits. No pleural effusion or pneumothorax. No acute osseous abnormal ity. Impression: Worsening interstitial opacities and peribronchial thickening within the central left yasmeen ng otherwise no change in diffuse increased interstitial opacities likely represents interstitial pn eumonitis; however an asymmetric pulmonary interstitial edema is also a consideration in the appropr iate clinical setting. Reported By:
[2016-12-14] MEDS: TYLENOL 325 MG TAB PO PRN (07:30)
[2016-12-14] MEDS ORDERED: LASIX IVP ONE (09:19)
[2016-12-14] MEDS: INVANZ INJ 1 GM VIAL 1 GM in NS 50 ML IV + SPIKE MINIBAG* 50 ML IV SCH (09:34)
[2016-12-14] MEDS: ALBUMIN HUMAN 25%- 100ML 100 ML IV SCH (09:34)
[2016-12-14] MEDS: COLACE CAP 100 MG PO SCH (09:35)
[2016-12-14] MEDS: MEGACE PO SCH (09:35)
[2016-12-14] MEDS: ZESTORETIC 10/ 12.5MG PO SCH (09:35)
[2016-12-14] MEDS: PLAVIX PO SCH (09:35)
[2016-12-14] MEDS: PROTONIX TAB 40 MG PO SCH (09:35)
[2016-12-14] MEDS: ASPIRIN 81 MG CHEWTAB PO SCH (09:36)
[2016-12-14] MEDS: LOVENOX INJ 30 MG SYR SC SCH (09:36)
[2016-12-14] MEDS: MIRALAX POWDER (1 DOSE 17GM) PO SCH (09:37)
[2016-12-14] MEDS: MILK OF MAGNESIA PO SCH (09:37)
[2016-12-14] MEDS: PULMICORT NEB TX 0.5 MG NEB SCH (09:46)
[2016-12-14] MEDS: DUONEB 0.5 MG/3 MG NEB SCH ×2 (09:46→12:56)
[2016-12-14] MEDS ORDERED: PHARMACY CONSULT - TPN XX SCH (10:00)
[2016-12-14 10:30] LABS: ABG BASE EXCESS 7.6 mmol/L (-2.0-2.0)
[2016-12-14 10:31] LABS: ABG ALLEN TEST PSO
[2016-12-14] MEDS ORDERED: ZITHROMAX INJ 500 MG VIAL 500 MG in NS 250 ML IV 250 ML IV SCH (10:40)
[2016-12-14] MEDS ORDERED: NS 250 ML IV 250 ML IV ONE (12:54)
--- NOTE | 2016-12-14 14:34 | PCM.PROG ---
Progress Note - Progress Note for Day of Date: 12/14/16 - Subjective Subjective: Patient is a 66-year-old white female, patient of Dr. Antons, admitted on 11/28 with multiple exacerbations of chronic illnesses including respiratory distress/COPD, UTI and a sacral decubitus that was infected. Patient has been on IV antibiotics for infections, Patient continues to have diffuse expiratory wheezes and bilateral diminished bases. pt under care of Dr Cordon, pulmonolgist, recent biopsy. Patient's hemoglobin this morning was 6.7 , patient had more increased respiratory distress and decreased alertness. Patient's chest x-ray showed worsening interstitial opacities as well as peribronchial bronchial thickening. Patient had low-grade fever during the night. Due to worsening of condition patient was transferred to ICU. Stat ABG. Contacted patient's capsule inspector, Dr. Cordon at [facility] for patient transfer to tertiary care facility for pulmonary specialty care - Past Medical Family Social History Past Med/Fam/Surg Hx: No changes since H&P Allergies: Allergies Ciprofloxacin [From Cipro] Allergy (Verified 11/27/16 20:03) Codeine Allergy (Verified 11/27/16 20:03) Nitrofurantoin [From Macrobid] Allergy (Verified 11/27/16 20:03) Sulfa Antibiotics Allergy (Verified 11/27/16 20:03) Sulfamethoxazole w/Trimethoprim [From Septra] Allergy (Verified 11/27/16 20:03) - Review of Systems ROS: No change since H&P - Vital Signs and I&O's Vital Signs: Temperature 99.0 F Pulse Rate [Left Brachial] 102 Pulse Rate [Right Brachial] 111 Pulse Rate [Apical] 118 Pulse Rate 89 Respiratory Rate 24 Blood Pressure [Right Calf] 95/56 Blood Pressure [Right Arm] 107/51 Blood Pressure [Left Arm] 93/47 O2 Sat by Pulse Oximetry 98 Intake and Output: Intake & Output 12/12/16 12/13/16 12/14/16 12/15/16 11:59 11:59 11:59 11:59 Intake Total 4054 2995 3025 Output Total 4375 1200 1200 Balance -321 1795 1825 - Physical Exam Oriented: Normal, Time, Person, Place Eyes: Normal. negative: Blurred Vision, Diplopia, Discharge, Pain, Redness, Photophobia Ear: Normal. negative: Swelling, Ecchymosis, Hemotypanum, Abrasion, Laceration Nose: Normal. negative: Injected, Discharge, Blood Throat: Normal. negative: Tonsillar Hypertrophy, Red, Exudate, Dry Respiratory: Generalized, Diminished Cardiovascular: Normal. negative: Murmur, Edema : Normal. negative: Dysuria, Hematuria, Frequency, Discharge, Bleeding, Auscultation: Bowel Sounds: Normal. negative: Bruit Tenderness: Normal Skin: Decreased Turgur, Wound (Sacral wounds: Superior to sacral, Sacral area, and Inferior to sacral) Musculoskeletal: Instability Psychiatric: Normal Mood Description: Calm Affect: Normal Speech Pattern: Clear, Appropriate - Laboratory and Diagnostics Result Diagrams: 12/14/16 04:15 12/14/16 04:15 Labs: 12/13/16 21:00 Sputum - Expectorated Sputum Sputum Culture - Preliminary 12/13/16 21:00 Sputum - Expectorated Sputum - Final 12/05/16 13:05 Blood Blood Culture - Final 12/05/16 13:20 Blood Blood Culture - Final 12/09/16 05:34 Sputum - Expectorated Sputum Sputum Culture - Final 12/09/16 05:34 Sputum - Expectorated Sputum - Final 11/29/16 14:52 Sacral Gram Stain - Final 11/29/16 14:52 Sacral Wound Culture - Final Citrobacter Freundii Laboratory WBC 13.6 X10^3/uL (3.6-10.0) H 12/14/16 04:15 RBC 2.48 X10^6/uL (3.5-5.4) L 12/14/16 04:15 Hgb 6.7 g/dL (12.0-16.0) L* 12/14/16 04:15 Hct 20.3 % (36.0-47.0) L 12/14/16 04:15 MCV 82.0 fL (80.0-100.0) 12/14/16 04:15 MCH 26.8 pg (27.0-34.0) L 12/14/16 04:15 MCHC 32.7 g/dL (33.0-35.0) L 12/14/16 04:15 RDW 18.8 % (11.6-16.5) H 12/14/16 04:15 Plt Count 397 X10^3/uL (150.0-450.0) 12/14/16 04:15 Plt Count Comment Increased (ADEQUATE) A 12/12/16 06:40 MPV 8.4 fL (7.4-11.0) 12/14/16 04:15 Neut % 88.2 % (42.0-75.0) H 12/14/16 04:15 Lymph % 7.3 % (21.0-51.0) L 12/14/16 04:15 [place] % 2.6 % (0.0-13.0) 12/14/16 04:15 Eos % 1.7 % (0.9-2.9) 12/14/16 04:15 Baso % 0.2 % (0.2-1.0) 12/14/16 04:15 Neut # 11.9 x10^3/uL (2.2-4.8) H 12/14/16 04:15 Lymph # 1.0 X10^3/uL (1.3-2.9) L 12/14/16 04:15 [place] # 0.4 x10^3/uL (0.3-0.8) 12/14/16 04:15 Eos # 0.2 x10^3/uL (0.0-0.2) 12/14/16 04:15 Baso # 0.0 X10^3/uL (0.0-0.1) 12/14/16 04:15 Absolute Nucleated RBC 0.0 /100WBC 12/14/16 04:15 Total Counted 100 12/10/16 04:00 Neutrophils % (Manual) 91 % (39-76) H 12/10/16 04:00 Lymphocytes % (Manual) 7 % (13-43) L 12/10/16 04:00 Monocytes % (Manual) 2 % (4-9) L 12/10/16 04:00 Nucleated RBCs Cancelled 12/06/16 04:10 Atypical Lymphocytes Cancelled 12/06/16 04:10 Blast Cells Cancelled 12/06/16 04:10 Smudge Cells Cancelled 12/06/16 04:10 Toxic Granulation Cancelled 12/06/16 04:10 Dohle Bodies Cancelled 12/06/16 04:10 Ryan Rods Cancelled 12/06/16 04:10 Plt Clumps, EDTA Cancelled 12/06/16 04:10 Giant Platelets Cancelled 12/06/16 04:10 Plt Morphology Comment Normal (NORMAL) 12/12/16 06:40 RBC Morphology Normal (NORMAL) 12/12/16 06:40 Dimorphic RBCs Cancelled 12/06/16 04:10 Polychromasia Cancelled 12/06/16 04:10 Hypochromasia Slight A 12/11/16 04:26 Poikilocytosis Slight A 12/01/16 07:00 Basophilic Stippling Cancelled 12/06/16 04:10 Anisocytosis 1+ A 12/09/16 03:55 Microcytosis Slight A 12/07/16 04:20 Macrocytosis Cancelled 12/06/16 04:10 Spherocytes Cancelled 12/06/16 04:10 Pappenheimer Bodies Cancelled 12/06/16 04:10 Sickle Cells Cancelled 12/06/16 04:10 Target Cells Cancelled 12/06/16 04:10 Tear Drop Cells Cancelled 12/06/16 04:10 Ovalocytes Cancelled 12/06/16 04:10 Stomatocytes Cancelled 12/06/16 04:10 Helmet Cells Cancelled 12/06/16 04:10 [place] Bodies Cancelled 12/06/16 04:10 [place] Rings Cancelled 12/06/16 04:10 [place] Cells Cancelled 12/06/16 04:10 Crenated Cell Cancelled 12/06/16 04:10 Acanthocytes (Spur) Cancelled 12/06/16 04:10 Rouleaux Cancelled 12/06/16 04:10 Schistocytes Cancelled 12/06/16 04:10 INR Target Range - 11/28/16 05:25 INR 1.29 (0.8-1.3) 11/28/16 05:25 PTT 27.0 SECONDS (22.9-36.5) 11/28/16 05:25 PTT Comment - 11/28/16 05:25 Sample Site Rr 12/14/16 10:25 ABG pH 7.480 (7.35-7.45) H 12/14/16 10:25 ABG pCO2 43.0 mmHg (35.0-45.0) 12/14/16 10:25 ABG pO2 52.0 mmHg (80.0-100.0) L 12/14/16 10:25 ABG HCO3 32.0 mmol/L (22-26) H* 12/14/16 10:25 ABG O2 Saturation 89.0 % (90-100) L 12/14/16 10:25 ABG Base Excess 7.6 mmol/L (-2.0-2.0) H 12/14/16 10:25 Mick Test Pso 12/14/16 10:25 A-a Gradient 44.0 mmHg 12/14/16 10:25 FiO2 21.000 12/14/16 10:25 Blood Gas Comments Pt suzette well. cdn 12/14/16 10:25 Sodium 139 mmol/L (136-145) 12/14/16 04:15 Corrected Sodium 140 mmol/L (136-145) 12/14/16 04:15 Potassium 3.5 mmol/L (3.5-5.1) 12/14/16 04:15 Chloride 101 mmol/L (98-107) 12/14/16 04:15 Carbon Dioxide 28.8 mmol/L (21-32) 12/14/16 04:15 BUN 32 mg/dL (7-18) H 12/14/16 04:15 Creatinine 0.74 mg/dL (0.55-1.02) 12/14/16 04:15 Est GFR (MDRD) Af Amer > 60 (>60) 12/14/16 04:15 Est GFR (MDRD) Non-Af > 60 (>60) 12/14/16 04:15 Glucose 122 mg/dL (65-99) H 12/14/16 04:15 Lactic Acid 1.3 mmol/L (0.4-2.0) 11/28/16 09:10 Calcium 9.1 mg/dL (8.5-10.1) 12/14/16 04:15 Corrected Calcium TNP 12/14/16 04:15 Phosphorus 0.5 mg/dL (2.6-4.7) L 12/01/16 07:00 Magnesium 2.2 mg/dL (1.7-2.9) 12/04/16 03:55 Total Bilirubin 0.60 mg/dL (0.2-1.0) 12/14/16 04:15 AST 16 Units/L (15-37) 12/14/16 04:15 ALT 34 Units/L (12-78) 12/14/16 04:15 Alkaline Phosphatase 61 Units/L (46-116) 12/14/16 04:15 Lactate Dehydrogenase 184 Units/L (81-234) 11/27/16 20:05 Creatine Kinase 73 Units/L (26-192) 11/28/16 09:10 CK-MB (CK-2) 1.4 ng/mL (0-4.0) 11/28/16 09:10 CK/CKMB % Calc 1.9 % (<4) 11/28/16 09:10 Troponin I 0.09 ng/mL (0-1.5) 11/28/16 09:10 B-Natriuretic Peptide 1890 pg/mL (0-79) H* 12/07/16 04:20 Total Protein 6.7 g/dL (6.4-8.2) 12/14/16 04:15 Albumin 3.8 g/dL (3.4-5.0) 12/14/16 04:15 Globulin 2.9 g/dL (2.5-4.5) 12/14/16 04:15 Albumin/Globulin Ratio 1.3 Ratio (1.1-2.1) 12/14/16 04:15 Triglycerides 81 mg/dL (0-150) 12/01/16 07:00 Amylase 12 Units/L (25-115) L 11/28/16 05:25 Lipase 69 Units/L (73-393) L 11/27/16 20:40 Cortisol 19.2 ug/dL 11/27/16 20:40 Specimen Type Clean catch urine 12/05/16 11:09 Urine Color Yellow (YELLOW) 12/05/16 11:09 Urine Appearance Hazy (CLEAR) 12/05/16 11:09 Urine pH 6.5 (5.0 - 8.0) 12/05/16 11:09 Ur Specific [place] 1.010 (1.000-1.030) 12/05/16 11:09 Urine Protein 2+ (NEGATIVE) 12/05/16 11:09 Urine Glucose (UA) Negative (NEGATIVE) 12/05/16 11:09 Urine Ketones Negative (NEGATIVE) 12/05/16 11:09 Urine Occult Blood 3+ (NEGATIVE) 12/05/16 11:09 Urine Nitrite Negative (NEGATIVE) 12/05/16 11:09 Urine Bilirubin Negative (NEGATIVE) 12/05/16 11:09 Urine Urobilinogen Normal (NORMAL) 12/05/16 11:09 Ur Leukocyte Esterase Negative (NEGATIVE) 12/05/16 11:09 Urine RBC 0-3 /HPF (NEGATIVE) 12/05/16 11:09 Urine WBC 3-5 /HPF (NEGATIVE) 12/05/16 11:09 Ur Squamous Epith Cells Rare /HPF (NEGATIVE) 12/05/16 11:09 Triple Phos Crystals Few /HPF (NEGATIVE) 12/05/16 11:09 Amorphous Sediment Trace /HPF (NEGATIVE) 11/27/16 21:00 Urine Bacteria Trace /HPF (NEGATIVE) 12/05/16 11:09 Ur Culture Indicated? No/not indicated 12/05/16 11:09 Stool Description Fob tube 12/06/16 17:03 Stl Occult Blood (IFOB) Positive (NEGATIVE) A 12/06/16 17:03 Blood Type A NEGATIVE 12/14/16 08:42 Antibody Screen Negative 12/14/16 08:42 Crossmatch See Detail 12/14/16 08:42 - Plan (1) CHF (congestive heart failure) Status: Acute Qualifiers: Congestive heart failure type: diastolic Congestive heart failure chronicity: acute Qualified Code(s): I50.31 - Acute diastolic (congestive) heart failure Plan: CONTINUE SUPPLEMENTAL OXYGEN, MONITOR CHEST XRAY. (2) Bronchopneumonia Status: Acute Plan: due to worsening of respiratory illness, increased respiratory distress, worsening opacities on chest x-ray. Plan to transfer patient to [facility] to tertiary care facility for pulmonary specialty care. Patient and family aware (3) Citrobacter infection Status: Acute Plan: CONTINUE IV INVANZ, WOUND CARE, MONITOR VITAL SIGNS, LABS. (4) Hypoalbuminemia due to protein-calorie malnutrition Status: Acute Plan: CONTINUE ALBUMIN, TPN, CONTINUE TO MONITOR LABS (5) UTI (urinary tract infection) Status: Acute Qualifiers: Urinary tract infection type: acute cystitis Hematuria presence: with hematuria Indwelling urinary catheter type: I Encounter type: E Qualified Code(s): N30.01 - Acute cystitis with hematuria Plan: CONTINUE INVANZ, IVF, MONITOR LABS (6) CAD (coronary artery disease) Status: Chronic Qualifiers: Coronary Disease-Associated Artery/Lesion type: [place] artery [place] vs. transplanted heart: [place] heart Associated angina: without angina Qualified Code(s): I25.10 - Atherosclerotic heart disease of [place] coronary artery without angina pectoris Plan: CONTINUE TO MONITOR (7) GERD (gastroesophageal reflux disease) Status: Chronic Qualifiers: Esophagitis presence: esophagitis presence not specified Qualified Code(s) : K21.9 - Gastro-esophageal reflux disease without esophagitis Plan: CONTINUE TO MONITOR (8) Hyperlipidemia Status: Chronic Qualifiers: Hyperlipidemia type: mixed hyperlipidemia Qualified Code(s): E78.2 - Mixed hyperlipidemia Plan: CONTINUE TO MONITOR (9) Hypertension Status: Chronic Qualifiers: Hypertension type: essential hypertension (10) Muscle weakness Status: Chronic Plan: PT (11) Adult failure to thrive Status: Acute Plan: chronically ill patient, requires full assistance with ADLs, discussed usp placement with patient and family. Case management consult. senior care placement pending
[2016-12-14 14:56] VITALS: BP 112/57
[2016-12-15] MEDS ORDERED: CLINIMIX 4.25 %/10 % 1,000 ML with MVI INJ (ADULT) 10 ML, TRACE ELEMENTS INJ 10 ML, TPN... IV SCH ×5 (09:00)
== END 2016-12-14 14:14 | disposition short-term general hospital (02) | DRG 689 ==
LOC: ER 19:58 → ICU 21:55 → MED/SURG 12-02 09:34 → ICU 12-14 10:25
PROVIDERS: ADMIT Internal Medicine; ATTEND Internal Medicine
PROC: 30233N1 Transfusion of Nonautologous Red Blood Cells into Peripheral Vein, Percutaneous Approach (ICD-10-PCS; principal; 2016-12-02)
PROC: 30233N1 Transfusion of Nonautologous Red Blood Cells into Peripheral Vein, Percutaneous Approach (ICD-10-PCS; 2016-12-02)
DX: N30.01 Acute cystitis with hematuria (principal); I50.31 Acute diastolic (congestive) heart failure; R53.1 Weakness; M13.89 Other specified arthritis, multiple sites; E78.2 Mixed hyperlipidemia; I10 Essential (primary) hypertension; R06.09 Other forms of dyspnea; J44.9 Chronic obstructive pulmonary disease, unspecified; L89.154 Pressure ulcer of sacral region, stage 4; J18.1 Lobar pneumonia, unspecified organism; B96.89 Other specified bacterial agents as the cause of diseases classified elsewhere; I25.10 Atherosclerotic heart disease of native coronary artery without angina pectoris; K21.9 Gastro-esophageal reflux disease without esophagitis; M62.81 Muscle weakness (generalized); R62.7 Adult failure to thrive; E88.09 Other disorders of plasma-protein metabolism, not elsewhere classified; E46 Unspecified protein-calorie malnutrition; M41.80 Other forms of scoliosis, site unspecified; K59.04 Chronic idiopathic constipation; J84.10 Pulmonary fibrosis, unspecified; R26.89 Other abnormalities of gait and mobility; R50.81 Fever presenting with conditions classified elsewhere; D50.8 Other iron deficiency anemias
CPT/HCPCS: 36415; 36430; 36600; 51701; 51702; 71010; 80053; 81001; 82150; 82270; 82533; 82550; 82553; 82803; 83605; 83615; 83690; 83735; 83880; 84100; 84132; 84478; 84484; 85014; 85018; 85025; 85610; 85730; 86850; 86900; 86901; 86922; 87040; 87070; 87075; 87077; 87086; 87186; 87205; 93005; 93306; 94640; 94660; 96365; 97535; 99231; 99284; A4217; A4222; A4618; A7030; B4189; P9016; P9047; S0179; J1335; J1650; J1815; J1940; J2175; J2405; J2543; J2920; J7620; J7626